=== PATIENT | male | born 1940 | race Caucasian/White ===

== ENCOUNTER 2021-01-30 11:07 | Outpatient (REF) | payer MEDICARE, MEDICAID, SELFPAY ==
--- NOTE | ~2021-01-30 | XR_ITS ---
EXAMINATION: XR CHEST CLINICAL INFORMATION: Nicotine dependence COMPARISON: None TECHNIQUE: 2 views of the chest were obtained. FINDINGS: The lungs are hyperinflated but clear of acute process. The heart size and pulmonary vascularity is normal. There is moderate spondylosis in dorsal spine. No lytic process. XR/XR chest 2V IMPRESSION: Hyperinflated lungs without acute process.
== END 2021-01-30 11:08 | disposition home or self-care (01) ==
LOC: HO.HMGCLDS 11:07
PROVIDERS: PCP Internal Medicine; Visit Provider Internal Medicine
DX: R05 Cough (principal); F17.210 Nicotine dependence, cigarettes, uncomplicated
CPT/HCPCS: 71046

== ENCOUNTER → 2021-03-13 08:47 | Outpatient (BNVA) | payer MEDICARE, MEDICAID, SELFPAY | PROVIDERS: PCP Internal Medicine; Visit Provider Internal Medicine Pulmonary Disease | DX: J44.9 Chronic obstructive pulmonary disease, unspecified (principal); R91.8 Other nonspecific abnormal finding of lung field; R05 Cough | CPT/HCPCS: 99202 ==

== ENCOUNTER 2021-03-19 13:02 | Outpatient (REF) | payer MEDICARE, MEDICAID, SELFPAY ==
--- NOTE | ~2021-03-19 | CT_ITS ---
EXAMINATION: CT CHEST WITHOUT CONTRAST CLINICAL INFORMATION: Other nonspecific abnormal finding of lung field. Followup pulmonary nodules. COMPARISON: Previous chest x-ray January [address] most recent September 2018 TECHNIQUE: Multidetector volumetric CT imaging of the chest was done. Axial MIP volume rendering provided. Sagittal and coronal reformatted images were obtained. This CT examination was performed using dose optimization techniques as appropriate, variously including the following: *Automated exposure control *Adjustment of mA and/or kV according to patient size (this includes techniques or standardized protocols for targeted exams where dose is matched to indication/reason for exam; i.e. extremities or head) *Use of iterative reconstruction technique DLP: 208 mGy-cm FINDINGS: LUNGS: Evaluation of the lung bases is limited due to respiratory motion artifact. There are multiple small pulmonary nodules. Some appear clustered and peribronchial with tree-in-bud appearance and some appear to represent bronchial soft tissue opacification suggestive of airways disease. This is similar to previous exam. There is a 3 x 4 mm calcified left upper lobe nodule that is stable. No new suspicious pulmonary nodule is seen. There is increased soft tissue along the anterior wall of the trachea. This is mixed with air and likely represents patient's secretions. MEDIASTINUM: The mediastinum is normal. PLEURA: There is no pleural effusion. No pleural mass or thickening. AXILLA: No lymphadenopathy. UPPER ABDOMEN: Unremarkable. OSSEOUS STRUCTURES: There are degenerative changes of the spine. CT/CT chest wo con IMPRESSION: Limited exam due to artifact from respiratory motion. Stable pulmonary nodules, largest a calcified 2 x 4 mm left upper lobe nodule. Some nodules appear to be related to airways disease and endobronchial secretions.
== END 2021-03-19 13:03 | disposition home or self-care (01) ==
LOC: HO.CT 13:02
PROVIDERS: PCP Internal Medicine; Visit Provider Internal Medicine Pulmonary Disease
DX: R91.8 Other nonspecific abnormal finding of lung field (principal)
CPT/HCPCS: 71250

== ENCOUNTER 2021-03-22 08:30 | Outpatient (REF) | payer MEDICARE, MEDICAID, SELFPAY ==
--- NOTE | 2021-03-22 17:14 | PFT_ITS ---
INDICATION: COPD. PROCEDURE NOTE: The patient unable to perform maneuvers despite several attempts and different coaching methods, therefore the patient was unable to perform the test. No data to review. IMPRESSION: This is a nondiagnostic study. ALLERGIES: PHYSICAL EXAMINATION: MD JAMES Eden/GUIDO / [id number]
--- NOTE | 2021-03-22 17:14 | PFT_ITS ---
INDICATION: Lung cancer. SPIROMETRY: The FEV1 to FVC 85% with an FEV1 of 2.63 L, which is predicted and an FVC of 3.1 L, which is 91% predicted. No significant response to bronchodilators noted. Maximum voluntary ventilation 101% predicted. LUNG VOLUMES: Total lung capacity 79% predicted with a residual volume of predicted and an expiratory reserve volume of 40% predicted. DIFFUSION CAPACITY: DLCO 81% predicted. COMPARISONS: None. INTERPRETATION: No obstructive ventilatory defect. No significant response to bronchodilators noted. Normal maximum voluntary ventilation. However, the patient does have a mild restrictive ventilatory defect of unclear etiology, it could be secondary to underlying interstitial lung disease. Diffusion capacity is within normal limits. Clinical correlation warranted. ALLERGIES: PHYSICAL EXAMINATION: Joseph Contreras MD MR/MODL / [id number]
== END 2021-03-22 08:31 | disposition home or self-care (01) ==
LOC: HO.RESP 08:30
PROVIDERS: PCP Internal Medicine; Visit Provider Internal Medicine Pulmonary Disease
DX: Z13.89 Encounter for screening for other disorder (principal)

== ENCOUNTER → 2021-04-02 08:53 | Outpatient (BNVA) | payer MEDICARE, MEDICAID, SELFPAY | PROVIDERS: PCP Internal Medicine; Visit Provider Internal Medicine Pulmonary Disease | DX: J44.9 Chronic obstructive pulmonary disease, unspecified (principal); R91.8 Other nonspecific abnormal finding of lung field; R05 Cough | CPT/HCPCS: 99212 ==

== ENCOUNTER 2021-04-10 10:27 | Outpatient (REF) | payer MEDICARE, MEDICAID, SELFPAY ==
[2021-04-10 11:25] LABS: Basophils Absolute Auto 0.1 X10*3/uL (0.0-0.2); Basophils Percent Auto 0.8 % (0-2); Eosinophils Absolute Auto 1.6 X10*3/uL (0.0-0.4); Eosinophils Percent Auto 23.7 % (0-4); Hematocrit 36.7 % (42-52); Hemoglobin 12.5 g/dl (14.0-18.0); Imm Gran Abs Auto 0.01 X10*3/uL (0.00-0.03); Imm Gran Pct Auto 0.2 % (0.0-0.4); Lymphocytes Absolute Auto 1.9 X10*3/uL (1.2-4.9); Lymphocytes Percent Auto 28.9 % (20-40); Mean Corpuscular HGB Conc 34.1 g/dl (31.0-36.0); Mean Corpuscular Hemoglobin 31.4 pg (27.0-33.0); Mean Corpuscular Volume 92.2 fL (80-98); Mean Platelet Volume 11.3 fL (9.4-12.4); Monocytes Absolute Auto 0.4 X10*3/uL (0.1-1.2); Monocytes Percent Auto 6.4 % (2-11); Neutrophils Absolute Auto 2.6 X10*3/uL (2.0-8.3); Platelet Count 190 X10*3/uL (160-400); Red Blood Count 3.98 X10*6/uL (4.60-5.80); Red Cell Distribution Width 13.4 % (11.0-16.0); White Blood Count 6.6 X10*3/uL (4.8-10.8)
[2021-04-10 11:36] LABS: MANUAL DIFF FLAG SCAN
[2021-04-10 11:44] LABS: Alanine Aminotransferase 27 U/L (0-40); Albumin Level 4.3 g/dL (3.5-5.0); Alkaline Phosphatase 66 U/L (39-117); Anion Gap 10 (12-20); Aspartate Amino Transferase 37 U/L (5-37); Bilirubin Total 0.6 mg/dL (0.0-1.0); Blood Urea Nitrogen 19 mg/dL (9-16); Calcium 9.5 mg/dL (8.4-10.2); Carbon Dioxide 25 mmol/L (22-29); Chloride 105 mmol/L (96-108); Cholesterol 153 mg/dL; Estimated Glomerular Filt Rate > 60; Glucose Fasting 80 mg/dL (60-99); HDL Cholesterol 43 mg/dL; Iron 64 mcg/dL (45-160); LDL Cholesterol Calculated 95 mg/dl; Percent Iron Saturation 17 % (15-50); Potassium 4.3 mmol/L (3.3-5.1); Sodium 136 mmol/L (135-145); Total Iron Binding Capacity 386 mcg/dL (228-428); Total Protein 7.9 g/dL (6.5-8.0); Triglycerides 76 mg/dL; Unsaturated Iron Binding 322 ug/dL
[2021-04-10 12:04] LABS: Ferritin 57 ng/mL (20-250); SLIDE REVIEW VERIFIED; Vitamin D 25-OH Total 20.9 ng/mL (>30)
[2021-04-10 12:20] LABS: Folate 10.5 ng/mL (> or = 4.0); Vitamin B12 368 pg/mL (200-900)
== END 2021-04-10 10:28 | disposition home or self-care (01) ==
LOC: HO.HMGCLDS 10:27
PROVIDERS: PCP Internal Medicine; Visit Provider Internal Medicine
DX: D64.9 Anemia, unspecified (principal); I10 Essential (primary) hypertension; Z87.19 Personal history of other diseases of the digestive system; Z87.898 Personal history of other specified conditions
CPT/HCPCS: 36415; 80053; 80061; 82306; 82607; 82728; 82746; 83540; 85025

== ENCOUNTER 2021-07-10 10:39 | Outpatient (REF) | payer MEDICARE, MEDICAID, SELFPAY ==
[2021-07-10 14:51] LABS: Vitamin D 25-OH Total 79.5 ng/mL (>30)
== END 2021-07-10 10:40 | disposition home or self-care (01) ==
LOC: HO.HMGCLDS 10:39
PROVIDERS: PCP Internal Medicine; Visit Provider Internal Medicine
DX: E55.9 Vitamin D deficiency, unspecified (principal)
CPT/HCPCS: 36415; 82306

== ENCOUNTER → 2021-08-01 09:55 | Outpatient (BNVA) | payer MEDICARE, MEDICAID, SELFPAY | PROVIDERS: PCP Internal Medicine; Visit Provider Urology | DX: N52.9 Male erectile dysfunction, unspecified (principal); N31.9 Neuromuscular dysfunction of bladder, unspecified; N40.1 Benign prostatic hyperplasia with lower urinary tract symptoms; N13.8 Other obstructive and reflux uropathy; R33.8 Other retention of urine; I10 Essential (primary) hypertension; E55.9 Vitamin D deficiency, unspecified; F17.210 Nicotine dependence, cigarettes, uncomplicated; Z28.21 Immunization not carried out because of patient refusal | CPT/HCPCS: Q3014 ==

== ENCOUNTER 2022-01-07 09:39 | Outpatient (REF) | payer MEDICARE, MEDICAID, SELFPAY ==
[2022-01-07 11:53] LABS: Basophils Absolute Auto 0.1 X10*3/uL (0.0-0.2); Eosinophils Absolute Auto 1.8 X10*3/uL (0.0-0.4); Eosinophils Percent Auto 26.9 % (0-4); Hematocrit 37.6 % (42.0-52.0); Hemoglobin 12.6 g/dl (14.0-18.0); Imm Gran Abs Auto 0.01 X10*3/uL (0.00-0.03); Imm Gran Pct Auto 0.1 % (0.0-0.4); Lymphocytes Absolute Auto 1.7 X10*3/uL (1.2-4.9); Lymphocytes Percent Auto 25.2 % (20-40); MANUAL DIFF FLAG SCAN; Mean Corpuscular HGB Conc 33.5 g/dl (31.0-36.0); Mean Corpuscular Volume 92.6 fL (80.0-98.0); Mean Platelet Volume 11.5 fL (9.4-12.4); Monocytes Absolute Auto 0.5 X10*3/uL (0.1-1.2); Monocytes Percent Auto 6.6 % (2-11); Neutrophils Absolute Auto 2.7 x10*3/uL (2.0-8.3); Neutrophils Percent Auto 40.2 % (45-73); Platelet Count 188 X10*3/uL (160-400); Red Blood Count 4.06 X10*6/uL (4.60-5.80); Red Cell Distribution Width 13.7 % (11.0-16.0); SCAN SMEAR FLAG 1; White Blood Count 6.8 X10*3/uL (4.8-10.8)
[2022-01-07 12:24] LABS: Vitamin D 25-OH Total 40.6 ng/mL (>30)
[2022-01-07 12:26] LABS: Alanine Aminotransferase 37 U/L (0-40); Anion Gap 12 (12-20); Aspartate Amino Transferase 48 U/L (5-37); Blood Urea Nitrogen 23 mg/dL (9-16); Calcium 9.7 mg/dL (8.4-10.2); Carbon Dioxide 26 mmol/L (22-29); Chloride 103 mmol/L (96-108); Cholesterol 157 mg/dL; Estimated Glomerular Filt Rate > 60; Glucose Fasting 93 mg/dL (60-99); HDL Cholesterol 38 mg/dL; Iron 72 mcg/dL (45-160); LDL Cholesterol Calculated 95 mg/dl; Percent Iron Saturation 19 % (15-50); Potassium 4.3 mmol/L (3.3-5.1); Sodium 137 mmol/L (135-145); Total Iron Binding Capacity 379 mcg/dL (228-428); Triglycerides 122 mg/dL; Unsaturated Iron Binding 307 ug/dL
[2022-01-07 13:34] LABS: SLIDE REVIEW VERIFIED
== END 2022-01-07 09:40 | disposition home or self-care (01) ==
LOC: HO.HMGCLDS 09:39
PROVIDERS: Visit Provider Internal Medicine
DX: D64.9 Anemia, unspecified (principal); E55.9 Vitamin D deficiency, unspecified; I10 Essential (primary) hypertension; Z87.19 Personal history of other diseases of the digestive system
CPT/HCPCS: 36415; 80048; 80061; 82306; 83540; 84450; 84460; 85025

== ENCOUNTER 2022-03-26 12:45 | Outpatient (REF) | payer MEDICARE, MEDICAID, SELFPAY ==
--- NOTE | ~2022-03-26 | CT_ITS ---
EXAMINATION: CT CHEST WITHOUT CONTRAST CLINICAL INFORMATION: Pulmonary nodules. COMPARISON: CT chest 03/19/2021 TECHNIQUE: Multidetector volumetric CT imaging of the chest was done. Axial MIP volume rendering provided. Sagittal and coronal reformatted images were obtained. This CT examination was performed using dose optimization techniques as appropriate, variously including the following: *Automated exposure control *Adjustment of mA and/or kV according to patient size (this includes techniques or standardized protocols for targeted exams where dose is matched to indication/reason for exam; i.e. 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 The lungs are well-expanded. LUNGS: The lungs are hyperinflated. There is a 2 mm left apex nodule axial image 83/9 which appears to be intrabronchiolar. 4 mm calcified nodule left upper lobe axial image 126/9, nodular tree-in-bud appearance left upper lobe axial image 179/9, right upper lobe axial image 188/9, intrabronchial or tumor nodule left upper lobe axial image 193/9, 3 mm focal thickening right major fissure axial image 243/9, intrabronchial or tree-in-bud appearance right upper lobe anteriorly image 271-278/9. No additional lung nodules are visualized. There is no acute consolidation. There is minimal plate-like atelectasis of the right lower lobe. MEDIASTINUM: The thyroid lobes are symmetrical and normal. The heart size and the great vessels are of normal caliber. The trachea is dilated but widely patent. No abnormally sized mediastinal or hilar lymph nodes are seen. Trace coronary artery calcifications are seen. PLEURA: There is no pleural effusion. No pleural mass or thickening. AXILLA: No lymphadenopathy. UPPER ABDOMEN: Visualized liver, spleen, pancreas and adrenal glands are unremarkable. OSSEOUS STRUCTURES: No lytic or sclerotic process is seen. CT/CT chest wo con IMPRESSION: Stable tree-in-bud appearing pulmonary nodules and intrabronchial debris, noncalcified and calcified pulmonary nodules including 4 mm calcified nodule left upper lobe. No acute pneumonic consolidation. Stable exam. There is no abnormal mediastinal or axillary lymphadenopathy. Evidence of emphysema and hyperinflation. Fleischner guidelines were followed.
== END 2022-03-26 12:46 | disposition home or self-care (01) ==
LOC: HO.CT 12:45
PROVIDERS: Visit Provider Internal Medicine Pulmonary Disease
DX: R91.8 Other nonspecific abnormal finding of lung field (principal)
CPT/HCPCS: 71250

== ENCOUNTER 2022-07-02 07:30 | Outpatient (REF) | payer MEDICARE, MEDICAID, SELFPAY ==
[2022-07-02 11:27] LABS: MANUAL DIFF FLAG NO
[2022-07-02 11:37] LABS: Basophils Absolute Auto 0.1 X10*3/uL (0.0-0.2); Basophils Percent Auto 0.6 % (0-2); Eosinophils Absolute Auto 1.9 X10*3/uL (0.0-0.4); Eosinophils Percent Auto 19.5 % (0-4); Hematocrit 36.5 % (42.0-52.0); Hemoglobin 12.4 g/dl (14.0-18.0); Imm Gran Abs Auto 0.03 X10*3/uL (0.00-0.03); Imm Gran Pct Auto 0.3 % (0.0-0.4); Lymphocytes Absolute Auto 2.1 X10*3/uL (1.2-4.9); Lymphocytes Percent Auto 21.6 % (20-40); Mean Corpuscular Hemoglobin 31.4 pg (27.0-33.0); Mean Corpuscular Volume 92.4 fL (80.0-98.0); Mean Platelet Volume 11.5 fL (9.4-12.4); Monocytes Absolute Auto 0.6 X10*3/uL (0.1-1.2); Monocytes Percent Auto 6.2 % (2-11); Neutrophils Percent Auto 51.8 % (45-73); Platelet Count 170 X10*3/uL (160-400); Red Blood Count 3.95 X10*6/uL (4.60-5.80); Red Cell Distribution Width 13.2 % (11.0-16.0); White Blood Count 9.7 X10*3/uL (4.8-10.8)
[2022-07-02 12:07] LABS: Alanine Aminotransferase 29 U/L (0-40); Albumin Level 4.1 g/dL (3.5-5.0); Alkaline Phosphatase 60 U/L (39-117); Anion Gap 14 (12-20); Aspartate Amino Transferase 34 U/L (5-37); Bilirubin Total 0.6 mg/dL (0.0-1.0); Blood Urea Nitrogen 23 mg/dL (9-16); Calcium 9.3 mg/dL (8.4-10.2); Carbon Dioxide 24 mmol/L (22-29); Chloride 104 mmol/L (96-108); Cholesterol 152 mg/dL; Estimated Glomerular Filt Rate > 60; Glucose Fasting 92 mg/dL (60-99); HDL Cholesterol 42 mg/dL; LDL Cholesterol Calculated 94 mg/dl; Sodium 138 mmol/L (135-145); Total Protein 7.8 g/dL (6.5-8.0); Triglycerides 83 mg/dL
[2022-07-02 12:09] LABS: TSH reflex Free T4 2.15 uIU/mL (0.32-4.0); Vitamin D 25-OH Total 39.2 ng/mL (>30)
== END 2022-07-02 07:31 | disposition home or self-care (01) ==
LOC: HO.HMGCLDS 07:30
PROVIDERS: PCP Internal Medicine; Visit Provider Internal Medicine
DX: I10 Essential (primary) hypertension (principal); D64.9 Anemia, unspecified; J44.9 Chronic obstructive pulmonary disease, unspecified; R53.83 Other fatigue; E55.9 Vitamin D deficiency, unspecified; Z87.19 Personal history of other diseases of the digestive system
CPT/HCPCS: 36415; 80053; 80061; 82306; 84443; 85025

== ENCOUNTER → 2022-08-05 11:10 | Outpatient (BNVA) | payer MEDICARE, MEDICAID, SELFPAY | PROVIDERS: PCP Internal Medicine; Visit Provider Urology | DX: N40.1 Benign prostatic hyperplasia with lower urinary tract symptoms (principal); R33.8 Other retention of urine; N52.9 Male erectile dysfunction, unspecified | CPT/HCPCS: 51798; 99212 ==

== ENCOUNTER 2022-12-26 07:33 | Outpatient (REF) | payer MEDICARE, MEDICAID, SELFPAY ==
[2022-12-26 12:00] LABS: Basophils Absolute Auto 0.1 X10*3/uL (0.0-0.2); Basophils Percent Auto 0.6 % (0-2); Eosinophils Percent Auto 26.3 % (0-4); Hematocrit 32.5 % (42.0-52.0); Imm Gran Abs Auto 0.01 X10*3/uL (0.00-0.03); Imm Gran Pct Auto 0.1 % (0.0-0.4); Lymphocytes Absolute Auto 2.3 X10*3/uL (1.2-4.9); Lymphocytes Percent Auto 30.2 % (20-40); MANUAL DIFF FLAG SCAN; Mean Corpuscular HGB Conc 33.8 g/dl (31.0-36.0); Mean Corpuscular Hemoglobin 31.5 pg (27.0-33.0); Mean Corpuscular Volume 93.1 fL (80.0-98.0); Mean Platelet Volume 11.3 fL (9.4-12.4); Monocytes Absolute Auto 0.5 X10*3/uL (0.1-1.2); Monocytes Percent Auto 6.6 % (2-11); Neutrophils Absolute Auto 2.8 x10*3/uL (2.0-8.3); Neutrophils Percent Auto 36.2 % (45-73); Platelet Count 166 X10*3/uL (160-400); Red Blood Count 3.49 X10*6/uL (4.60-5.80); Red Cell Distribution Width 14.1 % (11.0-16.0); SCAN SMEAR FLAG 1; White Blood Count 7.8 X10*3/uL (4.8-10.8)
[2022-12-26 12:23] LABS: SLIDE REVIEW VERIFIED
[2022-12-26 12:36] LABS: Alanine Aminotransferase 25 U/L (0-40); Anion Gap 13 (12-20); Aspartate Amino Transferase 33 U/L (5-37); Blood Urea Nitrogen 35 mg/dL (9-16); Calcium 8.7 mg/dL (8.4-10.2); Carbon Dioxide 23 mmol/L (22-29); Chloride 107 mmol/L (96-108); Cholesterol 144 mg/dL; Estimated Glomerular Filt Rate 57; Glucose Fasting 92 mg/dL (60-99); HDL Cholesterol 37 mg/dL; Iron 79 mcg/dL (45-160); LDL Cholesterol Calculated 88 mg/dl; Percent Iron Saturation 25 % (15-50); Potassium 4.1 mmol/L (3.3-5.1); Sodium 139 mmol/L (135-145); Total Iron Binding Capacity 319 mcg/dL (228-428); Triglycerides 97 mg/dL; Unsaturated Iron Binding 240 ug/dL
[2022-12-26 12:51] LABS: Folate 10.1 ng/mL (> or = 4.0); Vitamin B12 1043 pg/mL (200-900); Vitamin D 25-OH Total 45.9 ng/mL (>30)
== END 2022-12-26 07:34 | disposition home or self-care (01) ==
LOC: HO.HMGCLDS 07:33
PROVIDERS: PCP Internal Medicine; Visit Provider Internal Medicine
DX: E55.9 Vitamin D deficiency, unspecified (principal); D64.9 Anemia, unspecified; I10 Essential (primary) hypertension; G47.00 Insomnia, unspecified; J44.9 Chronic obstructive pulmonary disease, unspecified; F17.210 Nicotine dependence, cigarettes, uncomplicated; Z87.19 Personal history of other diseases of the digestive system
CPT/HCPCS: 36415; 80048; 80061; 82306; 82607; 82746; 83540; 84450; 84460; 85025

== ENCOUNTER 2022-12-30 15:41 | Outpatient (AMB) | payer MEDICARE, MEDICAID, SELFPAY ==
--- NOTE | 2022-12-30 15:46 | A.OFFPC_ITS ---
<Statement entered by Argentina Pierre MD - 01/18/25 15:14> This note has been administratively?closed. Vital Signs 12/30/22 15:48 Height 5 ft 3 in Weight 102 lb 7 oz BMI 18.1 BP 118/70 Blood Pressure Location Lt brachial Position Sitting Pulse 63 Pulse Source Pulse Oximeter Pulse Oximetry (%) 99 Oxygen Delivery Method Room Air Intake Visit Reasons: 6 months f/u Intake Note: Pt is here today for his 6 month f/u Allergies No Known Allergies Allergy (Verified 12/30/22 16:09) Medication List - Last Reconciled 12/30/22 by Argentina Pierre MD acetaminophen ER (Tylenol 8 Hour) 650 mg PO Q12H cod liver oil 5 mL PO DAILY finasteride 5 mg PO DAILY 90 days glycopyrrolate-formoterol 9-4.8 mcg (Bevespi Aerosphere) 2 puffs inhalation BID 30 days ipratropium-albuterol 20-100 mcg/actuation (Combivent Respimat) 1 puff inhalation Q6H lisinopril 5 mg PO DAILY tadalafil 20 mg PO ONCE PRN 30 days tamsulosin 0.4 mg PO BEDTIME 90 days Tobacco use date assessed: 12/30/22 Fall risk assessment: No Falls in past year Last assessed Fall Risk: 12/30/22 HPI 6 months f/u HPI Details 82-year-old male history of normocytic normochromic anemia, benign prostatic hyperplasia, COPD here today for follow-up. He states that he has been feeling well, with no complaints at present time. Continues to smoke cigarettes at least 10 cigarettes a day , with no desire to quit at present. He also declines getting any vaccines, including the COVID vaccine. He has a follow-up appointment scheduled with Dr. Ulloa for his benign prostatic hyperplasia. [facility] Medical History Benign prostatic hyperplasia with urinary retention COVID-19 vaccination refused Duodenitis Erosive gastritis with hemorrhage Essential hypertension Hearing impairment Hiatal hernia Hx of gastritis Hx of syncope Insomnia disorder, with non-sleep disorder mental comorbidity Intermittent lightheadedness Normocytic normochromic anemia Productive cough Refused influenza vaccine Refused pneumococcal vaccination Smokes with greater than 40 pack year history Vaccine refused by patient Vitamin D deficiency Surgical History No pertinent past surgical history Family History Father Parkinson's disease Social History Housing: Apartment Alcohol intake: former Patient Tobacco Use Status: Current everyday Tobacco user Tobacco use type: Cigarette Cigarette Packs Per Day: 0 Cigarettes Per Day: 10 e-Cigarette/Vaping Use: Never Used service: No Current occupational status: retired Cognitive needs: No Hearing needs: Yes Vision needs: Yes Questionnaire Thrive Questionnaire Declines Thrive assessment: No Date Thrive assessed: 12/30/22 I am a: Patient What is your living situation today?: I have a steady place to live Within the past 12 months, did the food you bought not last and you didn't have the money to get more?: Sometimes True Within the past 12 months, did you worry whether your food would run out before you got money to buy more?: Sometimes True Do you have trouble paying for medicines?: No Do you have trouble getting transportation to medical appointments?: No Do you have trouble paying your heating and electricity bill?: No Do you have trouble taking care of your child, family member or friend?: No Do you have trouble with day-to-day activities such as bathing, preparing meals, shopping, managing finances, etc.?: No Are you currently unemployed and looking for a job?: No Are you interested in more education?: No AUDIT C Alcohol Use Questionnaire (AUDIT-C) 1. How often do you have a drink containing alcohol?: Never Total Score: 0 Review of Systems Const Denies fever(s), Denies weakness and Denies weight loss ENT Reports hearing loss, Denies nasal congestion, Denies post nasal drip, Denies sinus pain and Denies sinus pressure Card Denies chest pain, Denies pedal edema and Denies orthopnea Resp Denies hemoptysis, Denies excessive phlegm production and Reports wheezing (Occasional, needs a refill on his inhalers) GI Details: no melena or hematochezia Denies abdominal pain, Denies melena, Denies bloating, Denies hematochezia, Denies dyspepsia and Denies heartburn Details: no hematuria Musc Denies myalgias, Denies arthralgias and Denies joint swelling Neuro Denies weakness Arturo/Lymph Denies easy bruising Aller/Immun Denies seasonal rhinorrhea and Reports wheezing (Occasional, needs a refill on his inhalers) Physical exam (Primary Care) Vital Signs: Last Vital Signs Pulse 63 12/30/22 15:48 BP 118/70 12/30/22 15:48 Pulse Ox 99 12/30/22 15:48 Oxygen Delivery Method Room Air 12/30/22 15:48 BMI result Body Mass Index 18.1 Tobacco/Smoking Status: Tobacco use Status Tobacco use date assessed 12/30/22 12/30/22 15:52 Patient Tobacco Use Status Current everyday Tobacco 12/30/22 15:52 Tobacco use type Cigarette 12/30/22 15:52 e-Cigarette/Vaping Use Never Used 12/30/22 15:52 Are you ready to quit: No Tobacco cessation counseling provided: Yes Items discussed: Nicotine replacement and Other Thrive Assessment: Date of Thrive Assessment Date Thrive assessed 06/30/22 12/30/22 15:52 Const General: cooperative, comfortable and no acute distress Orientation/consciousness: patient oriented x3 (Walks unassisted) Limitations: no limitations HENMT Ears: external ears normal and EAC's normal General nose exam: Normal external nose present Mouth: oropharynx normal and moist mucous membranes Eyes General: appearance normal, both eyes and all related structures Conjunctivae: conjunctivae normal Pupils: Equal, round and reactive pupils present EOM: EOMs intact bilaterally Neck Neck: Yes full ROM, Yes no lymphadenopathy and Yes supple Resp Effort & Inspection: normal respiratory effort and able to speak in complete sentences Auscultation: clear to auscultation bilaterally Cardio Rate: regular rate Rhythm: regular rhythm Heart sounds: S1 normal heart sound present and S2 normal heart sound present GI Inspection: Yes normal to inspection Palpation (GI): Soft to palpation, nontender and no masses Auscultation: normal bowel sounds Skin General skin exam: no rashes or lesions noted Neuro General: patient oriented x3 (Walks unassisted), gait normal, tone normal, moves all extremities, Normal light touch and pain sensation and no focal motor deficits Cranial nerves: Yes Equal, round and reactive pupils present Cognition (Neuro): normal cognition Gait exam (Neuro): Normal gait present Motor exam (neuro): 5/5 motor strength present throughout Extrem General: Yes full ROM, Yes no joint enlargement, Yes no pedal edema and Yes normal gait Results Reviewed Results Reviewed: NTERED: 12/26/[address]: ORDERED: CBC Auto Diff, SLIDE REVIEW Test Result Flag Reference Site WBC 7.8 4.8-10.8 X10*3/uL RBC 3.49 L 4.60-5.80 X10*6/uL HGB 11.0 L 14.0-18.0 g/dl HCT 32.5 L 42.0-52.0 % MCV 93.1 80.0-98.0 fL MCH 31.5 27.0-33.0 pg MCHC 33.8 31.0-36.0 g/dl RDW 14.1 11.0-16.0 % PLT 166 160-400 X10*3/uL MPV 11.3 9.4-12.4 fL Neut Pct Auto 36.2 L 45-73 % ImGran Pct Auto 0.1 0.0-0.4 % Lymp Pct Auto 30.2 20-40 % Bre[place]itt Pct Auto 6.6 2-11 % Eos Pct Auto 26.3 H 0-4 % Baso Pct Auto 0.6 0-2 % NRBC Pct Auto 0.0 0.0-0.2 /100WBC ANC Neut Abs # 2.8 2.0-8.3 x10*3/uL ImGran Abs Auto 0.01 0.00-0.03 X10*3/uL Lymph Abs Auto 2.3 1.2-4.9 X10*3/uL [place] Abs Auto 0.5 0.1-1.2 X10*3/uL Eos Abs Auto 2.0 H 0.0-0.4 X10*3/uL Baso Abs Auto 0.1 0.0-0.2 X10*3/uL NRBC Abs Auto 0.000 0.0-0.012 X10*3/uL SLIDE REVIEW VERIFIED NTERED: 12/26/[address]: ORDERED: Met Prof Fast, IRON PROF, AST, ALT, Lipid Panel, B12FOL, Vitamin D 25- OH Test Result Flag Reference Site Sodium 139 135-145 mmol/L Potassium 4.1 3.3-5.1 mmol/L CL 107 96-108 mmol/L CO2 23 22-29 mmol/L Gap 13 12-20 BUN 35 H 9-16 mg/dL Creat 1.22 0.5-1.4 mg/dL EGFR 57 NOTE: For -Bul[place] individuals, multiply the result by 1.210. Chronic Kidney Disease: Estimated GFR < 60 mL/min/1.73m2 Severe Kidney Disease: Estimated GFR < 15 mL /min/1.73m2 FBS 92 60-99 mg/dL CA 8.7 # 8.4-10.2 mg/dL Iron 79 45-160 mcg/dL TIBC 319 228-428 mcg/dL Saturation 25 15-50 % UIBC 240 ug/dL AST (GOT) 33 5-37 U/L ALT (GPT) 25 0-40 U/L Triglyceride 97 mg/dL Desirable Triglyceride: less than 150 mg/dL Borderline High Triglyceride 150-199 mg/dL High Triglyceride: 200-499 mg/dL Very High Triglyceride: greater than or equal to 5OO mg/dL Chol 144 mg/dL Desirable Cholesterol: less than 200 mg/dL Borderline High Cholesterol: 200-239 mg/dL High Cholesterol: greater than 239 mg/dL LDL Calculated 88 mg/dl Desirable LDL: less than 100 mg/dL Near Optimal/Above Optimal LDL: 110-129 mg/dL Borderline High LDL: 130-159 mg/dL High LDL: 160-189 mg/dL Very High LDL: greater than or equal to 190 mg/dL HDL 37 mg/dL Desirable HDL: greater than 40 mg/dL Note: This HDL assay may give artificially low results in patients with liver disease. Vitamin B12 1043 H 200-900 pg/mL NORMAL 200-900 PG/ML INDETERMINATE 160-199 PG/ML DEFICIENT < 160 PG/ML Folate 10.1 > or = 4.0 ng/mL Reference Values: > or = 4.0 ng/mL < 4.0 ng/mL suggests folate deficiency Methotrexate, aminopterin and folinic acid (leucovorin) are chemotherapeutic agents whose molecular structures are similar to folate; therefore, the Visually Impaired Teacher folate assay cannot be used for patients using these drugs. Vit D 25-OH Tot 45.9 >30 ng/mL Health Based Reference Values* < 20 ng/mL Deficient 20-30 ng/mL Insufficient > 30 ng/mL Sufficient Assessment and Plan Assessment & Plan (1) Essential hypertension: Code(s): I10 - Essential (primary) hypertension Plan: Blood pressure at goal of less than 130/80. Continue with current medication. Reinforced importance of following a low sodium diet, getting regular exercise, and lowering stress levels. (2) COPD (chronic obstructive pulmonary disease): Code(s): J44.9 - Chronic obstructive pulmonary disease, unspecified Plan: Continued on Bevespi aerosphere. Unfortunately, patient does not want to quit smoking or get his pneumonia COVID and flu vaccine (3) Refused pneumococcal vaccination: Code(s): Z28. - Immunization not carried out because of patient refusal Plan: Patient states that he has been feeling well, with no complaints of cough, chest congestion or wheezing. Take (4) COVID-19 vaccination refused: Code(s): Z. - Immunization not carried out because of patient refusal Medications: Changed From ipratropium-albuterol 20-100 mcg/actuation (Combivent Respimat) 1 puff inhalation Q6H 4 grams 5RF F17.210 - Nicotine dependence, cigarettes, uncomplicated, R05 - Cough To Combivent Respimat 20-100 mcg/actuation (ipratropium-albuterol) 1 puff in halation Q6H 4 grams 6RF NS F17.210 - Nicotine dependence, cigarettes, uncomplicated, R05 - Cough Refilled lisinopril 5 mg PO DAILY 90 tabs 3RF I10 - Essential (primary) hypertension Coding Level of Care Code Est Pt Level 4 (17436) Diagnoses Essential hypertension I10 COPD (chronic obstructive pulmonary disease) J44.9 Refused pneumococcal vaccination COVID-19 vaccination refused
[2022-12-30 15:48] VITALS: BP 118/70; PULSE 63; O2SAT 99; BMI 18.1
== END 2022-12-30 16:29 | disposition home or self-care (01) ==
LOC: HO.HMGC 15:41
PROVIDERS: PCP Internal Medicine; Visit Provider Internal Medicine
DX: I10 Essential (primary) hypertension (principal); J44.9 Chronic obstructive pulmonary disease, unspecified; Z28.21 Immunization not carried out because of patient refusal
CPT/HCPCS: 99499

== ENCOUNTER 2023-01-15 09:34 | Emergency (ER) | payer MEDICARE, MEDICAID, SELFPAY ==
--- NOTE | ~2023-01-15 | XR_ITS ---
EXAMINATION: XR LUMBOSACRAL SPINE CLINICAL INFORMATION: Lifting injury. COMPARISON: Lumbar spine radiographs dated 08/06/2018. TECHNIQUE: Three views of the lumbosacral spine. FINDINGS: Moderate to severe degenerative disc disease is seen from L3-L4 and L5-S1. Degenerative changes are seen most pronounced at L4-L5 where there is mild grade 1 anterolisthesis. The vertebral bodies are intact. There is no acute fracture. Mild to moderate multilevel marginal osteophyte formation is seen. The soft tissues are unremarkable. XR/XR lumbar spine 2-3V IMPRESSION: Multilevel degenerative changes of mildly increased compared to the 2018 study. No significant acute abnormality.
--- NOTE | ~2023-01-15 | XR_ITS ---
EXAMINATION: XR HIP, RIGHT CLINICAL INFORMATION: Right hip pain status post lifting injury. COMPARISON: None available. TECHNIQUE: Two views of the right hip. FINDINGS: Mild bilateral hip degenerative joint changes are seen, right greater than left. There is no acute fracture or dislocation. The bony pelvis is intact with the soft tissues are unremarkable. XR/XR hip RT w PEL1V IMPRESSION: Mild bilateral hip osteoarthritis, right greater than left. No acute fracture.
[2023-01-15 09:49] VITALS: BP 134/78; BP 200/96; PULSE 75; RESP 18; TEMP 36.6; O2SAT 100; O2SAT 99; BMI 16.5
--- NOTE | 2023-01-15 10:21 | ED_ITS ---
HPI - Back Pain/Injury General Chief Complaint: Back Pain/Injury Stated Complaint: R SIDE PAIN S/P LIFTING HEAVY OBJ T-1 Time Seen by Provider: 01/15/23 10:00 Source: patient and EMS Mode of arrival: EMS Limitations: no limitations History of Present Illness HPI Narrative: this is an 82-year-old male with history of COPD, BPH, hypertension, tobacco smoker who presents to the ER with right-sided back pain with radiation down the right leg which happened yesterday when he lifted a barbecue at home. Patient reports radiation of pain down the leg with no associated numbness or tingling. No numbness in the groin. No Dorsey bladder incontinence. No fevers or chills. Patient is ambulatory. Patient reports taking Motrin with continued symptoms Related Data Home Medications Medication Instructions Recorded Confirmed acetaminophen 650 mg 650 mg PO Q12H 07/10/21 08/05/22 tablet,extended release (Tylenol 8 Hour) cod liver oil 5 ml PO DAILY 07/10/21 08/05/22 Previous Rx's Medication Instructions Recorded glycopyrrolate 9 mcg-formoterol 2 puff inhalation BID 30 days #1 ea 04/03/21 4.8 mcg HFA aerosol inhaler (Bevespi Aerosphere) finasteride 5 mg tablet 5 mg PO DAILY 90 days #90 tabs 09/03/22 tamsulosin 0.4 mg capsule 0.4 mg PO BEDTIME 90 days #90 caps 09/23/22 tadalafil 20 mg tablet 20 mg PO ONCE PRN sexual activity 11/24/22 30 days #30 tabs Combivent Respimat 20 mcg-100 1 puff inhalation Q6H #4 grams 12/30/22 mcg/actuation solution for inhalation (ipratropium-albuterol) lisinopril 5 mg tablet 5 mg PO DAILY #90 tabs 12/30/22 acetaminophen 325 mg tablet 650 mg PO QID PRN pain #30 tabs 01/15/23 (Tylenol) cyclobenzaprine 10 mg tablet 10 mg PO TID PRN muscle spasm #10 01/15/23 tabs lidocaine 5 % topical patch 1 patch topical DAILY #30 ea 01/15/23 (Lidoderm) Allergies Allergy/AdvReac Type Severity Reaction Status Date / Time No Known Allergies Allergy Verified 12/30/22 16:09 Review of Systems Review of Systems: Yes all other systems are reviewed and are negative Constitutional: Constitutional: Reports no additional constitutional complaints, Denies body ache(s), Denies chills, Denies fever(s), Denies headache(s) and Denies weakness Eyes: Eyes: Reports no additional eye complaints and Denies change in vision ENT: Reports system reviewed and no additional complaints, except as documented, Denies dizziness, Denies headache(s), Denies nasal congestion, Denies nasal discharge and Denies neck pain Cardiovascular: Cardiovascular: Reports no additional cardiovascular complaints, Denies chest pain, Denies leg edema and Denies dyspnea Respiratory: Respiratory: Reports no additional respiratory complaints, Denies cough and Denies dyspnea Gastrointestinal: Gastrointestinal: Reports no additional gastrointestinal complaints, Denies abdominal pain, Denies diarrhea, Denies nausea and Denies vomiting Genitourinary: Genitourinary: Denies urinary incontinence Musculoskeletal: Musculoskeletal: Reports no additional musculoskeletal complaints, Reports back pain, Denies arthralgias, Denies joint swelling, Denies neck pain, Denies numbness, Reports radiating pain into limb and Denies tingling Integumentary/Breasts: Skin/Breast: Reports system reviewed and no additional complaints, except as docu and Denies rash Neurologic: Reports system reviewed and no additional complaints, except as documented, Denies Abnormal speech present, Denies dizziness, Denies headache(s), Denies numbness, Denies tingling and Denies weakness PMFSH Past Medical History Attestation statement: The following information was validated with the patient. Source: old records reviewed and nursing notes reviewed Medical History Benign prostatic hyperplasia with urinary retention COVID-19 vaccination refused Duodenitis Erosive gastritis with hemorrhage Essential hypertension Hearing impairment Hiatal hernia Hx of gastritis Hx of syncope Insomnia disorder, with non-sleep disorder mental comorbidity Intermittent lightheadedness Normocytic normochromic anemia Productive cough Refused influenza vaccine Refused pneumococcal vaccination Smokes with greater than 40 pack year history Vaccine refused by patient Vitamin D deficiency Surgical History No pertinent past surgical history Family History Family History Father Parkinson's disease Social History Social History Housing: Apartment Alcohol intake: former Patient Tobacco Use Status: Current everyday Tobacco user Tobacco use type: Cigarette Cigarette Packs Per Day: 0 Cigarettes Per Day: 10 Smoked in Last 30 Days: Yes e-Cigarette/Vaping Use: Never Used Use of substances other than those prescribed or required for medical reasons: No Advance Directives: No Advance Directives Information Provided: Yes service: No Current occupational status: retired Cognitive needs: No Hearing needs: Yes Vision needs: Yes Physical Exam Vital Signs: Vital Signs: Last Vital Signs Temp 97.7 F 01/15/23 12:30 Pulse 61 01/15/23 12:30 Resp 16 01/15/23 12:30 BP 194/85 H 01/15/23 12:30 Pulse Ox 99 01/15/23 12:30 O2 Del Method Room Air 01/15/23 12:30 BMI result Body Mass Index 16.5 Const: General: cooperative, healthy appearing, comfortable and no acute distress Orientation/consciousness: patient oriented x3 Limitations: no limitations HEENT: Head: Yes normal to inspection Ears: hearing grossly normal bilaterally General nose exam: Normal external nose present Face and sinus: Yes normal facial exam Mouth: Normal oral and palatal mucosa present Throat: Yes posterior oropharynx normal Eyes: General: appearance normal, both eyes and all related structures Pupils: Equal, round and reactive pupils present Neck: Neck: Yes normal visual inspection Chest: Chest palpation & inspection: normal inspection of the chest Resp: Effort & Inspection: normal respiratory effort Auscultation: clear to auscultation bilaterally Cardio: Rate: regular rate Rhythm: regular rhythm Peripheral pulses: Peripheral pulses 2+ throughout GI: Inspection: Yes normal to inspection Palpation (GI): Soft to palpation and nontender Auscultation: normal bowel sounds : General: Yes no CVA tenderness Back/Spine/Pelvis: Other: patient has tenderness over the right lumbar soft tissue and mid spine, posterior right hip/pelvis with no step-offs or deformities. Pain is worsened with right straight leg raise. Back: no CVA tenderness Thoracic/Lumbar Spine: thoracic and lumbar spine normal to inspection Skin: General skin exam: no rashes or lesions noted Neuro: General: patient oriented x3, moves all extremities, no focal motor deficits, normal sensation to monofilament and Unable to assess gait Cranial nerves: Yes Equal, round and reactive pupils present, Yes Normal facial strength present and Yes Midline tongue present Cognition (Neuro): normal cognition Speech: No Abnormal speech present Gait exam (Neuro): Unable to assess gait Motor exam (neuro): 5/5 motor strength present throughout Sensory Exam: Normal double simultaneous stimulation for sensation Extrem: General: Yes normal to inspection, Yes no pedal edema and Yes no calf tenderness Course Course Course Narrative: x-rays are unremarkable with exception of some arthritic changes. Patient was able to ambulate around the emergency room with a steady gait. Likely lumbar radiculopathy. I will send the patient home with some analgesia and recommendations to follow-up with his primary care doctor outpatient. Reviewed worrisome signs and symptoms of when to return to the emergency room. Comfortable plan for discharge home. Medications Administered Discontinued Medications Generic Name Dose Route Start Last Admin Trade Name Freq PRN Reason Stop Dose Admin Acetaminophen 975 mg 01/15/23 10:19 01/15/23 11:09 Acetaminophen 325 Mg Tablet PO 01/15/23 10:20 975 mg ONCE ONE Administration Ketorolac Tromethamine 15 mg 01/15/23 10:20 01/15/23 11:09 Ketorolac Tromethamine 15 Mg/Ml Vial IM 01/15/23 10:21 15 mg ONCE ONE Administration Lidocaine 1 patch 01/15/23 10:19 01/15/23 11:09 Lidocaine 4 % Patch Adh..Patch TRANSDERMA 01/15/23 10:20 1 patch ONCE ONE Administration Protocol Medical Decision Making Medical Decision Making MDM Narrative: 82yo male Here with right sided back pain after lifting heavy object yesterday night. No neurological deficits or red flag symptoms. Will check x-rays, provide analgesia Differential Diagnosis Differential Diagnoses: The differential diagnosis associated with the presentation includes lumbar radiculopathy low concern for cord compression or cauda equina or epidural hematoma Independent Interpretation I performed an independent interpretation of an: Plain X-Ray Interpretation: I independently reviewed the x-rays and agree with the radiologist's report Radiology Impression Discussion of test interpretation with radiology: I have reviewed the radiologist's reading. Radiologist Impression: FINDINGS: Moderate to severe degenerative disc disease is seen from L3-L4 and L5-S1. Degenerative changes are seen most pronounced at L4-L5 where there is mild grade 1 anterolisthesis. The vertebral bodies are intact. There is no acute fracture. Mild to moderate multilevel marginal osteophyte formation is seen. The soft tissues are unremarkable. XR/XR lumbar spine 2-3V IMPRESSION: Multilevel degenerative changes of mildly increased compared to the 2018 study. No significant acute abnormality.[address] [address] XRay Report Signed Patient: Florentin Jeronimo MR#: [id number] : 1940 Acct:[id number] Age/Sex: 82 / M ADM Date: 01/15/23 Loc: HO.ED Attending Dr: Ordering Physician: Stella Machado NP Date of Service: 01/15/23 Procedure(s): XR hip RT w PEL1V Accession Number(s): [id number] cc: Stella Machado NP~ EXAMINATION: XR HIP, RIGHT CLINICAL INFORMATION: Right hip pain status post lifting injury. COMPARISON: None available. TECHNIQUE: Two views of the right hip. FINDINGS: Mild bilateral hip degenerative joint changes are seen, right greater than left. There is no acute fracture or dislocation. The bony pelvis is intact with the soft tissues are unremarkable.? XR/XR hip RT w PEL1V IMPRESSION: Mild bilateral hip osteoarthritis, right greater than left. No acute fracture. ? Discharge Plan Discharge Clinical Impression: Lumbar radiculopathy Patient Disposition: Home, Self-Care Instructions: Lumbar Radiculopathy (ED) Additional Instructions: Your x-ray show no broken bones. Apply heat or ice to your back gentle stretching follow-up with your primary care Prescriptions: New cyclobenzaprine 10 mg tablet 10 mg PO TID PRN (Reason: muscle spasm) Qty: 10 0RF acetaminophen [Tylenol] 325 mg tablet 650 mg PO QID PRN (Reason: pain) Qty: 30 0RF lidocaine [Lidoderm] 5 % adhesive patch,medicated 1 patch topical DAILY Qty: 30 0RF Rx Instructions: leave on most painful area for up to 12 hrs No Action Bevespi Aerosphere 9-4.8 mcg HFA aerosol inhaler 2 puff inhalation BID 30 Days Qty: 1 6RF finasteride 5 mg tablet 5 mg PO DAILY 90 Days Qty: 90 3RF tamsulosin 0.4 mg capsule 0.4 mg PO BEDTIME 90 Days Qty: 90 3RF tadalafil 20 mg tablet 20 mg PO ONCE PRN (Reason: sexual activity) 30 Days Qty: 30 1RF Rx Instructions: Use 60 minutes prior to intended activity cod liver oil Oil 5 ml PO DAILY acetaminophen [Tylenol 8 Hour] 650 mg tablet extended release 650 mg PO Q12H lisinopril 5 mg tablet 5 mg PO DAILY Qty: 90 3RF Combivent Respimat 20-100 mcg/actuation mist 1 puff inhalation Q6H Qty: 4 6RF Referrals: Physician,Unknown J [Primary Care Provider] - Interventions: ED Discharge Assessment Last Done: 01/15/23 12:58 Discharge Date/Time: 01/15/23 12:58
[2023-01-15] MEDS: Lidocaine 4 % Patch ADH..PATCH 1 PATCH TRANSDERMA (11:09)
[2023-01-15] MEDS: Ketorolac Tromethamine 15 MG/ML VIAL IM (11:09)
[2023-01-15] MEDS: Acetaminophen 325 MG TABLET 975 MG PO (11:09)
[2023-01-15 12:30] VITALS: BP 194/85; PULSE 61; RESP 16; TEMP 36.5; O2SAT 99
== END 2023-01-15 12:58 | disposition home or self-care (01) ==
PROVIDERS: Emergency Provider Emergency Medicine
DX: M54.16 Radiculopathy, lumbar region (principal); I10 Essential (primary) hypertension; F17.210 Nicotine dependence, cigarettes, uncomplicated; Z79.899 Other long term (current) drug therapy
CPT/HCPCS: 72100; 73502; 96372; 99284; J1885

== ENCOUNTER 2023-04-03 06:35 | Outpatient (REF) | payer MEDICARE, MEDICAID, SELFPAY ==
[2023-04-03 09:38] LABS: Prostate Specific Antigen 9.98 ng/mL (<0.05-4.0)
== END 2023-04-03 06:36 | disposition home or self-care (01) ==
LOC: HO.LAB 06:35
PROVIDERS: PCP Internal Medicine; Visit Provider Urology
DX: N40.1 Benign prostatic hyperplasia with lower urinary tract symptoms (principal); R33.8 Other retention of urine; Z12.5 Encounter for screening for malignant neoplasm of prostate
CPT/HCPCS: 36415; 84153

== ENCOUNTER 2023-04-08 14:58 | Outpatient (AMB) | payer MEDICARE, MEDICAID, SELFPAY ==
--- NOTE | 2023-04-08 15:14 | A.OFFVIS_ITS ---
Intake Intake Visit Reasons: 6M PSA(set) Intake Note: Patient is present for Follow Up PSA Urology Med:Finasteride, Tadalafil, Tamsulosin Antibiotic Allergy:None Blood Thinner: None Allergies No Known Allergies Allergy (Verified 04/08/23 15:16) Medication List - Last Reconciled 04/08/23 by Marlon Ulloa MD acetaminophen (Tylenol) 650 mg (2 x 325 mg) PO QID PRN acetaminophen ER (Tylenol 8 Hour) 650 mg PO Q12H cod liver oil 5 mL PO DAILY Combivent Respimat 20-100 mcg/actuation (ipratropium-albuterol) 1 puff inhalation Q6H NS cyclobenzaprine 10 mg PO TID PRN finasteride 5 mg PO DAILY 90 days glycopyrrolate-formoterol 9-4.8 mcg (Bevespi Aerosphere) 2 puffs inhalation BID 30 days lidocaine 5% (Lidoderm) 1 patch topical DAILY lisinopril 5 mg PO DAILY tadalafil 20 mg PO ONCE PRN 30 days tamsulosin 0.4 mg PO BEDTIME 90 days HPI HPI Comments History of Present Illness Details Fredi KOEHLER is a very pleasant male. They are a patient of Dr. Pierre. They are seen in the office today for the following urologic conditions. - neurogenic bladder - incomplete bladder emptying - erectile dysfunction PVR 140cc PSA remains elevated 82-year-old male extremely large prostate on JOSE Neurogenic Bladder:?Very happy with emptying ?Current medication finasteride and tamsulosin ?Wants to continue with follow-up. ? They are here for ?further management for incomplete emptying neurogenic bladder.? Urinary retention initially found?after ER visit for spontaneous retention.? Voiding trial outcome?had 1200cc when placed 11/02 PSA 04/05 9.9 Erectile dysfunction Responsive to Cialis PFSH Medical History Benign prostatic hyperplasia with urinary retention COVID-19 vaccination refused Duodenitis Erosive gastritis with hemorrhage Essential hypertension Hearing impairment Hiatal hernia Hx of gastritis Hx of syncope Insomnia disorder, with non-sleep disorder mental comorbidity Intermittent lightheadedness Normocytic normochromic anemia Productive cough Refused influenza vaccine Refused pneumococcal vaccination Smokes with greater than 40 pack year history Vaccine refused by patient Vitamin D deficiency Surgical History No pertinent past surgical history Family History Father Parkinson's disease Social History Housing: Apartment Alcohol intake: former Patient Tobacco Use Status: Current everyday Tobacco user Tobacco use type: Cigarette Cigarette Packs Per Day: 0 Cigarettes Per Day: 10 e-Cigarette/Vaping Use: Never Used service: No Current occupational status: retired Cognitive needs: No Hearing needs: Yes Vision needs: Yes Review of Systems Const Denies chills and Denies fever(s) Card Reports no additional complaints and Denies syncope Resp Denies cough GI Denies abdominal pain and Denies heartburn Reports as per HPI and Denies change in libido Neuro Denies syncope Psych Denies change in libido Endo Denies change in libido Physical Exam Const General: cooperative, healthy appearing, comfortable and no acute distress Orientation/consciousness: patient oriented x3 HEENT Face and sinus: Yes normal facial exam Mouth: moist mucous membranes Neck Neck: Yes normal visual inspection, Yes full ROM and Yes trachea midline Chest Chest palpation & inspection: normal inspection of the chest Resp Effort & Inspection: normal respiratory effort, able to speak in complete sentences and no respiratory distress GI Inspection: Yes normal to inspection Rectal Exam - Male: Yes normal sphincter tone and Yes prostate normal Male General Exam: Yes normal external exam Penis: normal penis and circumcised Meatus: meatus normal Scrotum: scrotum normal Testes: Testes normal Back/Spine/Pelvis Cervical Spine: normal cervical lordosis Thoracic/Lumbar Spine: thoracic and lumbar spine normal to inspection Skin General skin exam: no rashes or lesions noted Neuro General: patient oriented x3, gait normal, tone normal and moves all extremities Extrem General: Yes normal to inspection and Yes capillary refill normal Assessment & Plan Assessment & Plan (1) Erectile dysfunction: Code(s): N52.9 - Male erectile dysfunction, unspecified (2) Benign prostatic hyperplasia with urinary retention: Code(s): N40.1 - Benign prostatic hyperplasia with lower urinary tract symptoms; R33.8 - Other retention of urine Plan 6 month follow-up Orders: Orders PSA,Total (Free>4and<10) 6 Months N40.1 - Benign prostatic hyperplasia with lowe r urinary tract symptoms, R33.8 - Other retention of urine Medications: Refilled tamsulosin 0.4 mg PO BEDTIME 90 caps 3RF 90 days N40.1 - Benign prostatic hyperplasia with lower urinary tract symptoms, R33.8 - Other retention of urine finasteride 5 mg PO DAILY 90 tabs 3RF 90 days N40.1 - Benign prostatic hyperplasia with lower urinary tract symptoms, R33.8 - Other retention of urine Patient Instructions: Imaging studies, laboratory and physical exam results were discussed and reviewed in detail. No major barriers to patient understanding were identified. An opportunity to ask questions regarding the treatment plan was provided. All questions were answered. The patient expressed understanding and agreement with the above treatment plan. The patient is aware they should contact our office by phone for worsening of their current condition or the appearance of new urologic symptoms. Compliance is encouraged with any medications and followup testing that is ordered. It is a privilege to participate in the urologic care of your patient. If you have any questions or concerns regarding treatment for the above conditions, or other urologic issues, please do not hesitate to contact me. The office teleph one contact is [phone]. This note is constructed using voice recognition software. While every effort has been made to ensure accuracy paper box cutter errors may have been included. Yours sincerely, Dr Marlon Ulloa MD, R[facility] - Urology Providers of Expert, Compassionate Care for the Genitourinary System Coding Level of Care Code Est Pt Level 3 (35062) Diagnoses Erectile dysfunction N52.9 Benign prostatic hyperplasia with urinary retention N40.1; R33.8
== END 2023-04-08 15:37 | disposition home or self-care (01) ==
PROVIDERS: Visit Provider Urology
DX: N52.9 Male erectile dysfunction, unspecified (principal); N40.1 Benign prostatic hyperplasia with lower urinary tract symptoms; R33.8 Other retention of urine
CPT/HCPCS: 99213

== ENCOUNTER → 2023-04-08 14:58 | Outpatient (BNVA) | payer MEDICARE, MEDICAID, SELFPAY | PROVIDERS: Visit Provider Urology | DX: N52.9 Male erectile dysfunction, unspecified (principal); N40.1 Benign prostatic hyperplasia with lower urinary tract symptoms; R33.8 Other retention of urine | CPT/HCPCS: 99212 ==

== ENCOUNTER 2023-09-02 10:44 | Emergency (ER) | payer MEDICARE, MEDICAID, SELFPAY ==
[2023-09-02 11:27] VITALS: BP 139/78; PULSE 85; RESP 19; TEMP 36.6; O2SAT 98; BMI 21.3
--- NOTE | 2023-09-02 11:31 | ED_ITS ---
HPI - Male Genitourinary General Chief complaint: Urogenital-Male Stated complaint: Unable to Urinate Prostate Issues Time Seen by Provider: 09/02/23 11:47 Source: patient Mode of arrival: ambulatory Limitations: no limitations History of Present Illness HPI Narrative: 83-year-old male history of gastritis, BPH with urinary retention, hypertension who presents emergency department for evaluation of difficulty urinating since routine 100 hours yesterday. He states that prior to onset of the symptom he did has some dysuria with frequency. He states that he was unable to pass urine, he felt his abdomen was distended and he was having pain therefore came to emergency department for evaluation. He states that this is happened to him in the past and has required a Head catheter. He denied fever, chills, nausea, vomiting. Related Data Home Medications Medication Instructions Recorded Confirmed acetaminophen 650 mg 650 mg PO Q12H 07/10/21 09/23/23 tablet,extended release (Tylenol 8 Hour) cod liver oil 5 ml PO DAILY 07/10/21 09/23/23 Previous Rx's Medication Instructions Recorded glycopyrrolate 9 mcg-formoterol 2 puff inhalation BID 30 days #1 ea 04/03/21 4.8 mcg HFA aerosol inhaler (Bevespi Aerosphere) Combivent Respimat 20 mcg-100 1 puff inhalation Q6H #4 grams 12/30/22 mcg/actuation solution for inhalation (ipratropium-albuterol) lisinopril 5 mg tablet 5 mg PO DAILY #90 tabs 12/30/22 acetaminophen 325 mg tablet 650 mg (2 x 325 mg) PO QID PRN 01/15/23 (Tylenol) pain #30 tabs cyclobenzaprine 10 mg tablet 10 mg PO TID PRN muscle spasm #10 01/15/23 tabs lidocaine 5 % topical patch 1 patch topical DAILY #30 ea 01/15/23 (Lidoderm) finasteride 5 mg tablet 5 mg PO DAILY 90 days #90 tabs 04/08/23 tamsulosin 0.4 mg capsule 0.4 mg PO BEDTIME 90 days #90 caps 04/08/23 tadalafil 20 mg tablet 20 mg PO ONCE PRN sexual activity 06/26/23 30 days #30 tabs levofloxacin 500 mg tablet 500 mg PO DAILY 7 days #7 tabs 09/02/23 levofloxacin 500 mg tablet 500 mg PO DAILY 7 days #7 tabs 09/09/23 cefuroxime axetil 500 mg tablet 500 mg PO BID 7 days #14 tabs 09/23/23 clotrimazole-betamethasone 1 1 appl topical BID apply to penis 09/23/23 %-0.05 % topical cream 2 weeks #45 grams Allergies Allergy/AdvReac Type Severity Reaction Status Date / Time No Known Allergies Allergy Verified 09/23/23 15:49 Review of Systems 2 Review of Systems: Yes all other systems are reviewed and are negative [facility] Past Medical History Medical History Vaccine refused by patient Refused pneumococcal vaccination COVID-19 vaccination refused Refused influenza vaccine Vitamin D deficiency Hx of gastritis Hearing impairment Normocytic normochromic anemia Benign prostatic hyperplasia with urinary retention Duodenitis Erosive gastritis with hemorrhage Hiatal hernia Productive cough Smokes with greater than 40 pack year history Intermittent lightheadedness Essential hypertension Insomnia disorder, with non-sleep disorder mental comorbidity Hx of syncope Surgical History No pertinent past surgical history Family History Family History Father Parkinson's disease Social History Social History Housing: Apartment Alcohol intake: former Patient Tobacco Use Status: Current everyday Tobacco user Tobacco use type: Cigarette Cigarette Packs Per Day: 0 Cigarettes Per Day: 10 e-Cigarette/Vaping Use: Never Used service: No Current occupational status: retired Cognitive needs: No Hearing needs: Yes Vision needs: Yes Physical Exam 2 Vital Signs: Vital Signs: Last Vital Signs Temp 98.2 F 09/02/23 14:37 Pulse 78 09/02/23 14:37 Resp 16 09/02/23 14:37 BP 191/90 H 09/02/23 14:37 Pulse Ox 97 09/02/23 14:37 O2 Del Method Room Air 09/02/23 14:37 BMI result Body Mass Index 21.3 Vital signs revealed an elevated blood pressure of 152/91 otherwise unremarkable Exam General: Awake, alert in no distress Head: Normocephalic, atraumatic EENT: PERRL, Lids normal, sclera normal, conjunctiva normal, nose normal , ears normal, throat without erythema or exudates Neck: Supple, no adenopathy, no trachea midline or C-spine tenderness Lung: breath sounds symmetric, no wheezing, rales or rhonchi Chest: symmetric movement, nontender Heart: regular rate and rhythm, normal S1, S2 no murmurs or rubs Abdomen: soft, palpable bladder which is moderate to severely tender to palpate, normal bowel sounds Back: no vertebral tenderness, no CVAT Extremities: no deformities, moves all extremities symmetrically Neuro: Awake, alert, oriented, normal speech,moves all extremities symmetrically Psych: Pleasant, cooperative Course Course Course Narrative: RME: 83 yold male with pmh of BPH presents to the ED for no urination for 12 hours. patietn brought inside the ED for head. bladder scan ordered Medications Administered Discontinued Medications Generic Name Dose Route Start Last Admin Trade Name Freq PRN Reason Stop Dose Admin Levofloxacin 500 mg 09/02/23 16:04 09/02/23 16:17 Levofloxacin 500 Mg Tablet PO 09/02/23 16:05 500 mg ONCE ONE Administration Medical Decision Making Medical Decision Making [facility] Narrative: 83-year-old male history of gastritis, BPH with urinary retention, hypertension who presents emergency department for evaluation of difficulty urinating since routine 100 hours yesterday. He states that prior to onset of the symptom he did has some dysuria with frequency. Exam did reveal a tender distended bladder. Following evaluation was ordered: CBC, CMP, urinalysis. I did order Head catheter placement by nursing. 16:01 My interpretation patient's laboratory evaluation is as follows: WBC low 4700. H&H is low 11.6 and 33.9-baseline. BUN elevated 22-similar elevations in the past, creatinine normal. AST is elevated 43. Urinalysis 2+ blood. Microscopic revealed greater than 20 RBCs, 0-5 WBCs, no bacteria-suggests against urinary tract infection. Patient had a Head catheter placed by nursing staff and drained greater than 800 cc of urine. Patient is on finasteride. Patient's urinary obstruction may be secondary to acute prostatitis therefore he was treated with Levaquin 500 mg orally and 500 mg once a day for 7 days Patient will be discharged home with a Head catheter in place and will need to follow-up with urology for re-evaluation in 4-7 days. Differential Diagnosis Differential Diagnoses: The differential diagnosis associated with the presentation includes Differential diagnosis includes was not limited to urinary tract infection, urinary retention, obstructive uropathy/acute kidney injury, electrolyte abnormality Admission/Observation Consideration of admission/observation: Escalation of care including admission/observation considered Lab Data [facility] Lab Attestation statement: I reviewed the patient's lab results. See MDM above 09/02/23 12:30 09/02/23 12:30 Labs: Lab Results 09/02/23 09/02/23 Range/Units 12: 12:30 WBC 4.7 L (4.8-10.8) X10*3/uL RBC 3.75 L (4.60-5.80) X10*6/uL Hgb 11.6 L (14.0-18.0) g/dl Hct 33.9 L (42.0-52.0) % MCV 90.4 (80.0-98.0) fL MCH 30.9 (27.0-33.0) pg MCHC 34.2 (31.0-36.0) g/dl RDW 14.2 (11.0-16.0) % Plt Count 181 (160-400) X10*3/uL MPV 10.4 (9.4-12.4) fL Immature Gran % (Auto) 0.4 (0.0-0.4) % Neut % (Auto) 74.9 H (45-73) % Lymph % (Auto) 18.5 L (20-40) % [place] % (Auto) 4.9 (2-11) % Eos % (Auto) 0.9 (0-4) % Baso % (Auto) 0.4 (0-2) % Lymph # (Auto) 0.9 L (1.2-4.9) X10*3/uL [place] # (Auto) 0.2 (0.1-1.2) X10*3/uL Eos # (Auto) 0.0 (0.0-0.4) X10*3/uL Baso # (Auto) 0.0 (0.0-0.2) X10*3/uL Abs Immat Gran (auto) 0.02 (0.00-0.03) X10*3/uL Absolute Neuts (auto) 3.5 (2.0-8.3) x10*3/uL Absolute Nucleated RBC 0.000 (0.0-0.012) X10*3/uL Nucleated RBC % (auto) 0.0 (0.0-0.2) /100WBC Sodium 137 (135-145) mmol/L Potassium 4.0 (3.3-5.1) mmol/L Chloride 104 (96-108) mmol/L Carbon Dioxide 22 (22-29) mmol/L Anion Gap 15 (12-20) BUN 22 H (9-16) mg/dL Creatinine 1.27 (0.5-1.4) mg/dL Estim Creat Clear Calc 35.1 Estimated GFR 54 Random Glucose 109 (60-115) mg/dL Calcium 9.5 D (8.4-10.2) mg/dL Total Bilirubin 0.7 (0.0-1.0) mg/dL AST 43 H (5-37) U/L ALT 27 (0-40) U/L Alkaline Phosphatase 60 (39-117) U/L Total Protein 7.9 (6.5-8.0) g/dL Albumin 3.9 (3.5-5.0) g/dL Urine Color Yellow Urine Appearance Clear Urine pH 7.0 (5.0-9.0) Ur Specific [place] 1.015 (1.005-1.025) Urine Protein Negative (Neg-Trace) mg/dL Urine Glucose (UA) Negative (Negative) mg/dL Urine Ketones Negative (Negative) mg/dL Urine Blood Moderate (2+) H (Negative) Urine Nitrite Negative (Negative) Ur Leukocyte Esterase Negative (Negative) Urine RBC >20 H (0-2) /HPF Urine WBC 0-5 (0-5) /HPF Ur Squamous Epith Cells 0-2 (0-2) /HPF Urine Bacteria None Seen (None Seen) Hyaline Casts 0-2 (0-2) /LPF Prescription Management I considered prescription management with: Antibiotic Chronic Conditions Patient?s care impacted by: Other (COPD, BPH) Discharge Plan Discharge Clinical Impression: Acute prostatitis, Acute urinary retention Patient Disposition: Home, Self-Care Instructions: Prostatitis (ED), Urinary Retention in Men (ED) Additional Instructions: Your blood work was normal, including your kidney function Your urinalysis was negative for urine infection but I believe that you may have a prostate infection which caused you to not be able to urinate Take Levaquin 500 mg pills, 1 pill once a day for 7 days. You got your 1st dose here in the emergency department an you should take your next dose tomorrow at 4pm Continue taking all your other medications as prescribed. Take Tylenol (acetaminophen) 500 mg pills, 2 pills every 6 hours as needed for pain or fever. Keep the Head catheter and until you can follow-up with your urologist within 4-7 days. Use the leg bag during the day and the large bag at night. Follow-up with your doctor in 2 days. Please return to the emergency department if your symptoms get worse or if you develop any symptoms that are concerning to you. Prescriptions: New levofloxacin 500 mg tablet 500 mg PO DAILY 7 Days Qty: 7 0RF No Action Bevespi Aerosphere 9-4.8 mcg HFA aerosol inhaler 2 puff inhalation BID 30 Days Qty: 1 6RF tadalafil 20 mg tablet 20 mg PO ONCE PRN (Reason: sexual activity) 30 Days Qty: 30 1RF Rx Instructions: Use 60 minutes prior to intended activity levofloxacin 500 mg tablet 500 mg PO DAILY 7 Days Qty: 7 0RF cyclobenzaprine 10 mg tablet 10 mg PO TID PRN (Reason: muscle spasm) Qty: 10 0RF acetaminophen [Tylenol] 325 mg tablet 650 mg PO QID PRN (Reason: pain) Qty: 30 0RF lidocaine [Lidoderm] 5 % adhesive patch,medicated 1 patch topical DAILY Qty: 30 0RF Rx Instructions: leave on most painful area for up to 12 hrs cod liver oil Oil 5 ml PO DAILY acetaminophen [Tylenol 8 Hour] 650 mg tablet extended release 650 mg PO Q12H lisinopril 5 mg tablet 5 mg PO DAILY Qty: 90 3RF Combivent Respimat 20-100 mcg/actuation mist 1 puff inhalation Q6H Qty: 4 6RF clotrimazole-betamethasone 1-0.05 % cream 1 appl topical BID 14 Days Qty: 45 0RF cefuroxime axetil 500 mg tablet 500 mg PO BID 7 Days Qty: 14 0RF tamsulosin 0.4 mg capsule 0.4 mg PO BEDTIME 90 Days Qty: 90 3RF finasteride 5 mg tablet 5 mg PO DAILY 90 Days Qty: 90 3RF Referrals: Marlon Ulloa MD [Physician] - 1 week (Urinary retention, Head catheter placed, started on Levaquin for possible prostatitis needs follow-up in 4-7 days) Interventions: ED Discharge Assessment Last Done: 09/02/23 17:18 Discharge Date/Time: 09/02/23 17:19
[2023-09-02 11:38] VITALS: BP 152/91; PULSE 90; RESP 16; O2SAT 98
[2023-09-02 12:35] LABS: MANUAL DIFF FLAG NO
[2023-09-02 12:42] LABS: Basophils Percent Auto 0.4 % (0-2); Eosinophils Percent Auto 0.9 % (0-4); Hematocrit 33.9 % (42.0-52.0); Hemoglobin 11.6 g/dl (14.0-18.0); Imm Gran Abs Auto 0.02 X10*3/uL (0.00-0.03); Imm Gran Pct Auto 0.4 % (0.0-0.4); Lymphocytes Absolute Auto 0.9 X10*3/uL (1.2-4.9); Lymphocytes Percent Auto 18.5 % (20-40); Mean Corpuscular HGB Conc 34.2 g/dl (31.0-36.0); Mean Corpuscular Hemoglobin 30.9 pg (27.0-33.0); Mean Corpuscular Volume 90.4 fL (80.0-98.0); Mean Platelet Volume 10.4 fL (9.4-12.4); Monocytes Absolute Auto 0.2 X10*3/uL (0.1-1.2); Monocytes Percent Auto 4.9 % (2-11); Neutrophils Absolute Auto 3.5 x10*3/uL (2.0-8.3); Neutrophils Percent Auto 74.9 % (45-73); Platelet Count 181 X10*3/uL (160-400); Red Blood Count 3.75 X10*6/uL (4.60-5.80); Red Cell Distribution Width 14.2 % (11.0-16.0); White Blood Count 4.7 X10*3/uL (4.8-10.8)
[2023-09-02 12:44] LABS: Appearance Urine Clear; Color Urine Yellow; Glucose Urine UA Negative (Negative); Leukocyte Esterase Urine Negative (Negative); Nitrite Urine Negative (Negative); Specific Gravity - Urine 1.015 (1.005-1.025); UMIC TRIGGER UACC YES; Urine Blood Moderate (2+) (Negative); Urine Ketones Negative (Negative); Urine Protein Negative (Neg-Trace)
[2023-09-02 12:49] LABS: Bacteria Urine None Seen (None Seen); Hyaline Casts Urine 0-2 /LPF (0-2); RBC Urine >20 /HPF (0-2); Squamous Epithelial Cell Urine 0-2 /HPF (0-2); WBC Urine 0-5 /HPF (0-5)
[2023-09-02 12:56] LABS: Alanine Aminotransferase 27 U/L (0-40); Albumin Level 3.9 g/dL (3.5-5.0); Alkaline Phosphatase 60 U/L (39-117); Anion Gap 15 (12-20); Aspartate Amino Transferase 43 U/L (5-37); Bilirubin Total 0.7 mg/dL (0.0-1.0); Blood Urea Nitrogen 22 mg/dL (9-16); Calcium 9.5 mg/dL (8.4-10.2); Carbon Dioxide 22 mmol/L (22-29); Chloride 104 mmol/L (96-108); Creatinine Clr Calc Pharmacy 35.1; Estimated Glomerular Filt Rate 54; Glucose Random 109 mg/dL (60-115); Sodium 137 mmol/L (135-145); Total Protein 7.9 g/dL (6.5-8.0)
[2023-09-02 14:37] VITALS: BP 191/90; PULSE 78; RESP 16; TEMP 36.8; O2SAT 97
[2023-09-02] MEDS: levoFLOXacin 500 MG TABLET PO (16:17)
== END 2023-09-02 17:19 | disposition home or self-care (01) ==
PROVIDERS: Physician Assistant; Emergency Provider Emergency Medicine Emergency Medical Services
DX: N41.0 Acute prostatitis (principal); R33.9 Retention of urine, unspecified; R35.0 Frequency of micturition; Z79.899 Other long term (current) drug therapy
CPT/HCPCS: 36415; 51702; 51798; 80053; 81001; 85025; 99283; 99285

== ENCOUNTER 2023-09-08 11:51 | Emergency (ER) | payer MEDICARE, MEDICAID, SELFPAY ==
--- NOTE | 2023-09-08 12:10 | ED_ITS ---
HPI - General Adult General Chief complaint: Urogenital-Male Stated complaint: Removable of Head Source: patient Mode of arrival: ambulatory Limitations: no limitations History of Present Illness HPI narrative: 83 year old male, tobacco smoker with 40 pack year history, with pmhx of HTN, COPD, BPH, and anemia presents to the ED this morning requesting removal of head catheter. Patient was seen in our ED 5 days ago for enlarged prostate requiring head catheter placement. He states he was told by his ED provider to return in 5 days to have the catheter removed. He denies scheduling follow up with urologist since ED visit 5 days ago. Has been taking finasteride as prescribed. He is currently taking Levaquin for suspected urinary tract infection and endorses compliance with antibiotics. States the catheter has been draining appropriately. He denies fever, chills, nausea, vomiting, flank pain, abdominal pain, hematuria, penile discharge. Related Data Home Medications Medication Instructions Recorded Confirmed acetaminophen 650 mg 650 mg PO Q12H 07/10/21 04/08/23 tablet,extended release (Tylenol 8 Hour) cod liver oil 5 ml PO DAILY 07/10/21 04/08/23 Previous Rx's Medication Instructions Recorded glycopyrrolate 9 mcg-formoterol 2 puff inhalation BID 30 days #1 ea 04/03/21 4.8 mcg HFA aerosol inhaler (Bevespi Aerosphere) Combivent Respimat 20 mcg-100 1 puff inhalation Q6H #4 grams 12/30/22 mcg/actuation solution for inhalation (ipratropium-albuterol) lisinopril 5 mg tablet 5 mg PO DAILY #90 tabs 12/30/22 acetaminophen 325 mg tablet 650 mg (2 x 325 mg) PO QID PRN 01/15/23 (Tylenol) pain #30 tabs cyclobenzaprine 10 mg tablet 10 mg PO TID PRN muscle spasm #10 01/15/23 tabs lidocaine 5 % topical patch 1 patch topical DAILY #30 ea 01/15/23 (Lidoderm) finasteride 5 mg tablet 5 mg PO DAILY 90 days #90 tabs 04/08/23 tamsulosin 0.4 mg capsule 0.4 mg PO BEDTIME 90 days #90 caps 04/08/23 tadalafil 20 mg tablet 20 mg PO ONCE PRN sexual activity 06/26/23 30 days #30 tabs levofloxacin 500 mg tablet 500 mg PO DAILY 7 days #7 tabs 09/02/23 Allergies Allergy/AdvReac Type Severity Reaction Status Date / Time No Known Allergies Allergy Verified 09/09/23 00:26 Review of Systems Review of Systems: Yes all other systems are reviewed and are negative [facility] Past Medical History Medical History Vaccine refused by patient Refused pneumococcal vaccination COVID-19 vaccination refused Refused influenza vaccine Vitamin D deficiency Hx of gastritis Hearing impairment Normocytic normochromic anemia Benign prostatic hyperplasia with urinary retention Duodenitis Erosive gastritis with hemorrhage Hiatal hernia Productive cough Smokes with greater than 40 pack year history Intermittent lightheadedness Essential hypertension Insomnia disorder, with non-sleep disorder mental comorbidity Hx of syncope Surgical History No pertinent past surgical history Family History Family History Father Parkinson's disease Social History Social History Housing: Apartment Alcohol intake: former Patient Tobacco Use Status: Current everyday Tobacco user Tobacco use type: Cigarette Cigarette Packs Per Day: 0 Cigarettes Per Day: 10 e-Cigarette/Vaping Use: Never Used Advance Directives: No Advance Directives Information Provided: No service: No Current occupational status: retired Cognitive needs: No Hearing needs: Yes Vision needs: Yes Physical Exam ED Vital Signs: Vital Signs - 24 hr 09/08/23 12:11 Temperature 97.9 F Pulse Rate 92 Respiratory Rate 17 Blood Pressure 145/80 H Pulse Oximetry 97 Oxygen Delivery Method Room Air BMI result Body Mass Index 18.2 Patient is hypertensive for 145/80, otherwise vital signs are within normal limits. Const General: cooperative, comfortable, no acute distress, alert and awake Nutritional Appearance: thin Orientation/consciousness: patient oriented x3 Limitations: no limitations Eyes General: appearance normal, both eyes and all related structures Resp Effort & Inspection: normal respiratory effort Auscultation: clear to auscultation bilaterally Cardio Rate: regular rate Rhythm: regular rhythm GI Inspection: Yes normal to inspection Palpation (GI): Soft to palpation, nontender and no guarding Other: + head catheter in place. draining straw colored urine. no hematuria or blood clots in head bag. General: Yes no CVA tenderness Back/Spine/Pelvis Back: no CVA tenderness Skin General skin exam: no rashes or lesions noted Neuro General: patient oriented x3, gait normal and moves all extremities Cranial nerves: Yes CN's II-XII intact bilaterally Extrem General: Yes normal to inspection Course Course Course Narrative: Patient left the emergency department before myself or any of the other clinicians in the ED could re-evaluate patient or explain physical exam findings, need or lack there of for additional testing, treatment options, or treatment plan. Medical Decision Making Medical Decision Making [facility] Narrative: 83 year old male, tobacco smoker with 40 pack year history, with pmhx of HTN, COPD, BPH, and anemia presents to the ED this morning requesting removal of head catheter. Patient is hypertensive to 145/80, otherwise vital signs are within normal limits. He is generally well appearing and in no acute distress. Abdomen is soft, ND/NT, no rebound or guarding. Head catheter is in place and draining appropriately into head bag. Straw colored urine noted without hemturia or blood clots. Differential Diagnosis Differential Diagnoses: The differential diagnosis associated with the presentation includes as above. Admission/Observation Consideration of admission/observation: Escalation of care including admission/observation considered External Record Review External record reviewed: Inpatient record, Office record, Outpatient record, Prior outpatient labs, Prior outpatient radiology, Primary care record and Outside ED record Critical Care Time Critical Care Time Critical Care Time: No Discharge Plan Discharge Clinical Impression: Encounter for Head catheter removal Patient Disposition: Left W/O Completing Treatment Prescriptions: No Action Bevespi Aerosphere 9-4.8 mcg HFA aerosol inhaler 2 puff inhalation BID 30 Days Qty: 1 6RF tadalafil 20 mg tablet 20 mg PO ONCE PRN (Reason: sexual activity) 30 Days Qty: 30 1RF Rx Instructions: Use 60 minutes prior to intended activity cyclobenzaprine 10 mg tablet 10 mg PO TID PRN (Reason: muscle spasm) Qty: 10 0RF acetaminophen [Tylenol] 325 mg tablet 650 mg PO QID PRN (Reason: pain) Qty: 30 0RF lidocaine [Lidoderm] 5 % adhesive patch,medicated 1 patch topical DAILY Qty: 30 0RF Rx Instructions: leave on most painful area for up to 12 hrs levofloxacin 500 mg tablet 500 mg PO DAILY 7 Days Qty: 7 0RF cod liver oil Oil 5 ml PO DAILY acetaminophen [Tylenol 8 Hour] 650 mg tablet extended release 650 mg PO Q12H lisinopril 5 mg tablet 5 mg PO DAILY Qty: 90 3RF Combivent Respimat 20-100 mcg/actuation mist 1 puff inhalation Q6H Qty: 4 6RF tamsulosin 0.4 mg capsule 0.4 mg PO BEDTIME 90 Days Qty: 90 3RF finasteride 5 mg tablet 5 mg PO DAILY 90 Days Qty: 90 3RF Discharge Date/Time: 09/08/23 14:30
[2023-09-08 12:11] VITALS: BP 145/80; PULSE 92; RESP 17; TEMP 36.6; O2SAT 97; BMI 18.2
== END 2023-09-08 14:30 | disposition left against medical advice (07) ==
PROVIDERS: Emergency Provider Emergency Medicine
DX: Z46.6 Encounter for fitting and adjustment of urinary device (principal)
CPT/HCPCS: 99281

== ENCOUNTER 2023-09-08 23:59 | Emergency (ER) | payer MEDICARE, MEDICAID, SELFPAY ==
--- NOTE | ~2023-09-08 | CT_ITS ---
EXAMINATION: CT PELVIS WITHOUT CONTRAST CLINICAL INFORMATION: Pain. Question displaced catheter. COMPARISON: None available. TECHNIQUE: Helical scanning was performed with submillimeter collimation through the pelvis. Sagittal and coronal multiplanar 2-D reconstructions were obtained. This CT examination was performed using dose optimization techniques as appropriate, variously including the following: *Automated exposure control *Adjustment of mA and/or kV according to patient size (this includes techniques or standardized protocols for targeted exams where dose is matched to indication/reason for exam; i.e. extremities or head) *Use of iterative reconstruction technique DLP: 189 mGy-cm FINDINGS: PELVIS: The prostate gland is enlarged measuring 6 x 1 2 x 7.1 cm. There is air within a distended urinary bladder. There is mild urinary bladder wall thickening. The Castrejon catheter balloon is at the level of the base of the penis. Tip of the Castrejon catheter is along left aspect of the balloon extending inferiorly. There are significant air lucencies along the Castrejon catheter balloon extending to the region of the scrotum as well as towards the prostate and base of the left penis. There is atherosclerotic plaque of the distal abdominal aorta and branches. The bowel is grossly unremarkable. OSSEOUS STRUCTURES: There is lower lumbar disc degenerative change. There is bilateral moderate hip degenerative change. CT/CT pelvis wo IV con IMPRESSION: Significant prostate gland hypertrophy. Urinary bladder distention with air within the urinary bladder and mild urinary bladder wall thickening. Castrejon catheter terminates in the region of the base of the penis with significant surrounding air lucencies possibly posttraumatic. The tip of the Castrejon catheter lies along the Castrejon catheter balloon to the left. Castrejon catheter replacement needed. Consider urethrogram to assess for urethral injury.
[2023-09-09] VITALS (11 sets, daily range): BP systolic 118–196; BP diastolic 55–94; PULSE 63–82; RESP 14–19; TEMP 36.4–37; O2SAT 97–100; BMI 21.3
--- NOTE | 2023-09-09 03:36 | ED_ITS ---
HPI - Male Genitourinary General Chief complaint: Urogenital-Male Stated complaint: catheter issue, leaking blood Time Seen by Provider: 09/09/23 03:03 Source: patient Mode of arrival: ambulatory History of Present Illness HPI Narrative: 83-year-old male presents with complaints that he was getting up to go to the bathroom and accidentally pulled on his catheter no that there was blood draining. Patient states that he was supposed to get the catheter removed, however when he presented to the urology office they informed him that Dr. Ulloa was on vacation. Related Data Home Medications Medication Instructions Recorded Confirmed acetaminophen 650 mg 650 mg PO Q12H 07/10/21 04/08/23 tablet,extended release (Tylenol 8 Hour) cod liver oil 5 ml PO DAILY 07/10/21 04/08/23 Previous Rx's Medication Instructions Recorded glycopyrrolate 9 mcg-formoterol 2 puff inhalation BID 30 days #1 ea 04/03/21 4.8 mcg HFA aerosol inhaler ([employer]) Combivent Respimat 20 mcg-100 1 puff inhalation Q6H #4 grams 12/30/22 mcg/actuation solution for inhalation (ipratropium-albuterol) lisinopril 5 mg tablet 5 mg PO DAILY #90 tabs 12/30/22 acetaminophen 325 mg tablet 650 mg (2 x 325 mg) PO QID PRN 01/15/23 (Tylenol) pain #30 tabs cyclobenzaprine 10 mg tablet 10 mg PO TID PRN muscle spasm #10 01/15/23 tabs lidocaine 5 % topical patch 1 patch topical DAILY #30 ea 01/15/23 (Lidoderm) finasteride 5 mg tablet 5 mg PO DAILY 90 days #90 tabs 04/08/23 tamsulosin 0.4 mg capsule 0.4 mg PO BEDTIME 90 days #90 caps 04/08/23 tadalafil 20 mg tablet 20 mg PO ONCE PRN sexual activity 06/26/23 30 days #30 tabs levofloxacin 500 mg tablet 500 mg PO DAILY 7 days #7 tabs 09/02/23 Allergies Allergy/AdvReac Type Severity Reaction Status Date / Time No Known Allergies Allergy Verified 09/09/23 00:26 Review of Systems Review of Systems: Pertinent positives and negatives as stated in HPI [facility] Past Medical History Source: nursing notes reviewed Medical History Vaccine refused by patient Refused pneumococcal vaccination COVID-19 vaccination refused Refused influenza vaccine Vitamin D deficiency Hx of gastritis Hearing impairment Normocytic normochromic anemia Benign prostatic hyperplasia with urinary retention Duodenitis Erosive gastritis with hemorrhage Hiatal hernia Productive cough Smokes with greater than 40 pack year history Intermittent lightheadedness Essential hypertension Insomnia disorder, with non-sleep disorder mental comorbidity Hx of syncope Surgical History No pertinent past surgical history Family History Family History Father Parkinson's disease Social History Social History Housing: Apartment Alcohol intake: former Patient Tobacco Use Status: Current everyday Tobacco user Tobacco use type: Cigarette Cigarette Packs Per Day: 0 Cigarettes Per Day: 10 e-Cigarette/Vaping Use: Never Used Advance Directives: No Advance Directives Information Provided: No service: No Current occupational status: retired Cognitive needs: No Hearing needs: Yes Vision needs: Yes Physical Exam Vital Signs: Vital Signs: Last Vital Signs Temp 97.7 F 09/09/23 02:37 Pulse 76 09/09/23 02:37 Resp 14 09/09/23 02:37 BP 196/90 H 09/09/23 02:37 Pulse Ox 100 09/09/23 02:37 O2 Del Method Room Air 09/09/23 02:37 BMI result Body Mass Index 21.3 VITAL SIGNS: Reviewed. GENERAL: Well developed, well nourished, in no acute distress. HEAD: Normocephalic/atraumatic EYES: PERRLA, EOMI LUNGS: Normal breath sounds. No adventitious sounds or accessory muscle use. SpO2<100> CARDIOVASCULAR: Regular rate and rhythm without noted murmurs ABDOMEN: Soft, non-tender, non-distended with bowel sounds. : There is blood noted within the catheter and at the meatus of the penis MUSCULOSKELETAL: No tenderness, deformities, or effusions noted on gross inspection. EXTREMITIES: No cyanosis, clubbing or edema. SKIN: Inspection of the skin reveals no rashes NEUROLOGIC: Alert and oriented x 4. Strength and sensation to light touch were grossly intact x 4. Medical Decision Making Medical Decision Making [facility] Narrative: 83-year-old male who accidentally pulled the catheter, we will deflate the balloon and events catheter until we obtain urine, bladder scan initially 127 cc. After advancing the catheter we will then irrigate. No return after irrigation, patient in significant pain, bedside ultrasound demonstrates distended bladder, removed old catheter and instructed placement of a coude catheter without urine return, only blood. Sent patient over to CT scan for better evaluation of catheter complexity and catheter was noted to be in the p rostate with air around the urethra. 0605: I discussed the case with Dr. Ulloa who states that someone will be in at 08:00, patient placed NPO. 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 Please see the discussion above Discharge Plan Discharge Clinical Impression: Malfunction of Castrejon catheter, Hematuria Patient Disposition: Still a Patient Prescriptions: No Action Bevespi Aerosphere 9-4.8 mcg HFA aerosol inhaler 2 puff inhalation BID 30 Days Qty: 1 6RF tadalafil 20 mg tablet 20 mg PO ONCE PRN (Reason: sexual activity) 30 Days Qty: 30 1RF Rx Instructions: Use 60 minutes prior to intended activity cyclobenzaprine 10 mg tablet 10 mg PO TID PRN (Reason: muscle spasm) Qty: 10 0RF acetaminophen [Tylenol] 325 mg tablet 650 mg PO QID PRN (Reason: pain) Qty: 30 0RF lidocaine [Lidoderm] 5 % adhesive patch,medicated 1 patch topical DAILY Qty: 30 0RF Rx Instructions: leave on most painful area for up to 12 hrs levofloxacin 500 mg tablet 500 mg PO DAILY 7 Days Qty: 7 0RF cod liver oil Oil 5 ml PO DAILY acetaminophen [Tylenol 8 Hour] 650 mg tablet extended release 650 mg PO Q12H lisinopril 5 mg tablet 5 mg PO DAILY Qty: 90 3RF Combivent Respimat 20-100 mcg/actuation mist 1 puff inhalation Q6H Qty: 4 6RF tamsulosin 0.4 mg capsule 0.4 mg PO BEDTIME 90 Days Qty: 90 3RF finasteride 5 mg tablet 5 mg PO DAILY 90 Days Qty: 90 3RF
--- NOTE | 2023-09-09 04:00 | PC.NURSE ---
head cath hand irrigated per MD request; irrigated w/ 60mL, pt tolerated well; however no return back. MD notified.
[2023-09-09] MEDS: Acetaminophen 325 MG TABLET 975 MG PO (05:58)
[2023-09-09] MEDS: Ibuprofen 400 MG TABLET PO (06:02)
[2023-09-09 06:38] LABS: MANUAL DIFF FLAG NO
[2023-09-09 06:39] LABS: Basophils Percent Auto 0.5 % (0-2); Eosinophils Percent Auto 12.4 % (0-4); Hematocrit 28.1 % (42.0-52.0); Hemoglobin 9.9 g/dl (14.0-18.0); Imm Gran Abs Auto 0.04 X10*3/uL (0.00-0.03); Imm Gran Pct Auto 0.5 % (0.0-0.4); Lymphocytes Absolute Auto 1.2 X10*3/uL (1.2-4.9); Lymphocytes Percent Auto 15.1 % (20-40); Mean Corpuscular HGB Conc 35.2 g/dl (31.0-36.0); Mean Corpuscular Hemoglobin 31.8 pg (27.0-33.0); Mean Corpuscular Volume 90.4 fL (80.0-98.0); Mean Platelet Volume 9.2 fL (9.4-12.4); Monocytes Absolute Auto 0.4 X10*3/uL (0.1-1.2); Monocytes Percent Auto 5.4 % (2-11); Neutrophils Absolute Auto 5.3 x10*3/uL (2.0-8.3); Neutrophils Percent Auto 66.1 % (45-73); Platelet Count 164 X10*3/uL (160-400); Red Blood Count 3.11 X10*6/uL (4.60-5.80); Red Cell Distribution Width 14.3 % (11.0-16.0)
[2023-09-09 06:52] LABS: Alanine Aminotransferase 18 U/L (0-40); Alkaline Phosphatase 41 U/L (39-117); Anion Gap 9 (12-20); Aspartate Amino Transferase 31 U/L (5-37); Bilirubin Total 0.6 mg/dL (0.0-1.0); Blood Urea Nitrogen 20 mg/dL (9-16); Calcium 7.3 mg/dL (8.4-10.2); Carbon Dioxide 20 mmol/L (22-29); Chloride 114 mmol/L (96-108); Creatinine Clr Calc Pharmacy 66.5; Estimated Glomerular Filt Rate > 60; Glucose Random 91 mg/dL (60-115); Potassium 2.8 mmol/L (3.3-5.1); Sodium 140 mmol/L (135-145); Total Protein 5.7 g/dL (6.5-8.0)
--- NOTE | 2023-09-09 07:22 | PC.NURSE ---
approx 1hr after hand irrigating head pt began to complain of bladder discomfort; pt states he felt he needed to bear down in order to urinate and is unable to do so. upon assessment of the drainage bag still no output noted. tech to repeat bladder scan. notified of the above. instructed to hand irriage again with the assisance of another RN. this copy writer and Kati Mckenzie, RN went into room. hand irrigated w/ approx an additional 60cc. still no output noted. pt now is 10 out of 10 abd discomfort. new finding that pt has abdominal distension. notified and is at bedside. ultrasound performed, bladder noted to be full. instructed this copy writer and other RN to remove head cath and to place a coude. head removed. coude placed without difficulty by Kati Mckenzie and this RN at bedside. pt still complaining of pain at this time. minimal output of blood noted in tubing. notified, pt sent to CT scan per MD order. after return from CT this RN was instructed to removed catheter d/t incorrect placement. catheter was removed. pt is resting in bed comfortable at this time. states pain is about 2 out of 10. no bleeding noted from urethra. given ibuprofen and tylenol per NOV. pt continues to rest comfortable. will continue to monitor.
--- NOTE | 2023-09-09 08:50 | PC.NURSE ---
Report taken from Luis RN assumed care of pt at 0700. Pt resting on stretcher, skin pwd respirations even unlabored, abd slightly distended, still unable to urinate, awaiting urology consult. Will continue to monitor.
[2023-09-09] MEDS: Potassium Chloride/H20 10 MEQ/100 ML PIGGYBACK 100 MEQ IV ×2 (09:38→10:56)
[2023-09-09] MEDS: lisinopriL 5 MG TABLET PO (10:55)
--- NOTE | 2023-09-09 12:19 | PC.NURSE ---
md kelly cruz made aware bp remains elevated 171/91 and c/o 8/10 penile pain and unable to void despite urge. denies abdom pain/tenderness.
[2023-09-09] MEDS: Morphine Sulfate 4 MG/ML CARTRIDGE IVPUSH (13:05)
--- NOTE | 2023-09-09 13:11 | PC.NURSE ---
good from Uro at bedside to eval- aware bladder feels distended/c.o. penile pain
[2023-09-09] MEDS: cefTRIAXone sodium 1 GM in 0.9 % Sodium Chloride 50 ML IV (14:20)
--- NOTE | 2023-09-09 14:36 | PM.UROCN ---
History of Present Illness Consult details Consult date: 09/09/23 Narrative: Florentin had a head placed due to urinary retention. He came in to ED this morning complaining that the catheter got pulled out. ED staff attempted to place the head, CT pelvis was done and noted that the head was not in the bladder. On exam- the bladder was distended, pt was complaining of pain and unable to urinate. Consent was obtained. Flexible cysto noted trauma to the proximal bulbous urethra, the scope was not able to be manipulated into the bladder. 14 fr malencot SP tube was placed, catheter attached to gravity bag. Review of Systems Review of Systems: Yes all other systems are reviewed and are negative Constitutional: Constitutional: Reports no additional constitutional complaints Eyes: Eyes: Reports no additional eye complaints ENT: Reports system reviewed and no additional complaints, except as documented Cardiovascular: Cardiovascular: Denies dyspnea Respiratory: Respiratory: Denies cough and Denies dyspnea Gastrointestinal: Gastrointestinal: Reports no additional gastrointestinal complaints Musculoskeletal: Musculoskeletal: Reports no additional musculoskeletal complaints Integumentary/Breasts: Skin/Breast: Denies rash and Denies unusual bruising Neurologic: Reports system reviewed and no additional complaints, except as documented Psychiatric: Psychiatric: Reports no additional psychiatric complaints Endocrine: Endocrine: Reports no additional endocrine complaints Hematologic/Lymphatic: Hematologic/Lymphatic: Reports no additional hematologic/lymphatic complaints Allergic/Immunologic: Allergic/Immunologic: Reports no additional allergic/immunologic complaints PMFSH Past Medical History Medical History Vaccine refused by patient Refused pneumococcal vaccination COVID-19 vaccination refused Refused influenza vaccine Vitamin D deficiency Hx of gastritis Hearing impairment Normocytic normochromic anemia Benign prostatic hyperplasia with urinary retention Duodenitis Erosive gastritis with hemorrhage Hiatal hernia Productive cough Smokes with greater than 40 pack year history Intermittent lightheadedness Essential hypertension Insomnia disorder, with non-sleep disorder mental comorbidity Hx of syncope Family History Family History Father Parkinson's disease Surgical History Surgical History No pertinent past surgical history Social History Social History Housing: Apartment Alcohol intake: former Patient Tobacco Use Status: Current everyday Tobacco user Tobacco use type: Cigarette Cigarette Packs Per Day: 0 Cigarettes Per Day: 10 e-Cigarette/Vaping Use: Never Used service: No Current occupational status: retired Cognitive needs: No Hearing needs: Yes Vision needs: Yes Meds Allergies Allergy/AdvReac Type Severity Reaction Status Date / Time No Known Allergies Allergy Verified 09/23/23 15:49 Home Medications Medication Instructions Recorded Confirmed Last Taken Type acetaminophen 650 mg 650 mg PO Q12H 07/10/21 09/23/23 Unknown History tablet,extended release (Tylenol 8 Hour) cod liver oil 5 ml PO DAILY 07/10/21 09/23/23 Unknown History Physical Exam Vital Signs: Vital Signs: Last Vital Signs Temp 97.7 F 09/09/23 12:00 Pulse 80 09/09/23 12:00 Resp 16 09/09/23 13:05 BP 171/91 H 09/09/23 12:00 Pulse Ox 98 09/09/23 12:00 O2 Del Method Room Air 09/09/23 12:00 BMI result Body Mass Index 21.3 Const: General: healthy appearing, no acute distress and well developed Orientation/consciousness: patient oriented x3 HEENT: Head: Yes normocephalic and Yes atraumatic Eyes: Conjunctivae: conjunctivae normal Neck: Neck: Yes normal visual inspection Chest: Chest palpation & inspection: normal inspection of the chest Resp: Effort & Inspection: normal respiratory effort Cardio: Rate: regular rate GI: Other: bladder distended, supra pubic tenderness Inspection: Yes normal to inspection : Other: blood at the meatus Penis: normal penis Scrotum: scrotum normal Skin: General skin exam: no rashes or lesions noted Neuro: General: patient oriented x3 Extrem: General: No pedal edema Psych: Appearance: grossly normal Affect: normal affect Results Labs 09/09/23 06:33 09/09/23 06:33 Labs: Abnormal lab results 09/09/23 Range/Units 06:33 RBC 3.11 L (4.60-5.80) X10*6/uL Hgb 9.9 L (14.0-18.0) g/dl Hct 28.1 L (42.0-52.0) % MPV 9.2 L (9.4-12.4) fL Immature Gran % (Auto) 0.5 H (0.0-0.4) % Lymph % (Auto) 15.1 L (20-40) % Eos % (Auto) 12.4 H (0-4) % Eos # (Auto) 1.0 H (0.0-0.4) X10*3/uL Abs Immat Gran (auto) 0.04 H (0.00-0.03) X10*3/uL Potassium 2.8 L D (3.3-5.1) mmol/L Chloride 114 H (96-108) mmol/L Carbon Dioxide 20 L (22-29) mmol/L Anion Gap 9 L (12-20) BUN 20 H (9-16) mg/dL Calcium 7.3 L D (8.4-10.2) mg/dL Total Protein 5.7 L (6.5-8.0) g/dL Albumin 3.0 L (3.5-5.0) g/dL Short CBC 09/09/23 Range/Units 06:33 WBC 8.0 (4.8-10.8) X10*3/uL Hgb 9.9 L (14.0-18.0) g/dl Hct 28.1 L (42.0-52.0) % Plt Count 164 (160-400) X10*3/uL BMP 09/09/23 06:33 Sodium 140 Potassium 2.8 L D Chloride 114 H Carbon Dioxide 20 L BUN 20 H Creatinine 0.67 Calcium 7.3 L D Liver Function 09/09/23 Range/Units 06:33 Total Bilirubin 0.6 (0.0-1.0) mg/dL AST 31 (5-37) U/L ALT 18 (0-40) U/L Alkaline Phosphatase 41 (39-117) U/L Albumin 3.0 L (3.5-5.0) g/dL All other labs normal. Assessment and Plan (1) Hematuria: Status: Inactive (2) Urinary retention: Status: Acute (3) Urethral trauma: Status: Acute (4) Head catheter problem: Status: Acute Procedures Date of Service Date of Service: 10/05/23 Cystoscopy Consent Discussed risk and benefit or proposed procedure with the patient. Information consent for procedure given to the patient. Discussed technical aspects, risks, benefits and alternatives in full. Addressed all of the patient's questions and concerns regarding the procedure. The patient demonstrated knowledge and understanding. They wish to proceed with this procedure. Preparation The patient was prepped in the usual manner. A concierge receptionist was present and in the room. Genitalia was prepped with betadine solution in a sterile manner. Lidocaine Jelly 2% was placed into the urethra and 16Fr flexible Olympus cystoscope was inserted into the meatus after adequate lubrication. Abx: Rocephen one gram IV. Consent was obtained. Time-out was done per protocol. The genitalia and lower abdomen were prepped with Hibiclens. Findings: There was trauma noted to the proximal bulbous urethra. The cystoscope was not able to be manipulated into the bladder. Suprapubic Tube insertion: 1% lidocaine was injected into the lower abdomen, 2 fingerbreath's from the pubic symphysis in the midline, a 22 gauge spinal needle was used to withdraw urine and identify the bladder, the 14 fr mallancot SP tube was then placed over the needle assembly, with urine return >700mL. 22079-Tccfinlwm of temporary indwelling bladder catheter, complicated 35106-[id number] Procedure code (CPT) selection complete
--- NOTE | 2023-09-09 14:46 | PM.OP ---
Brief Operative Note Date of Service: 09/09/23 Pre-op diagnosis: Urinary retention, urethral trauma Post-op diagnosis: same Procedure: The patient was evaluated in the emergency room. Abx: Rocephen one gram IV. Consent was obtained. Time-out was done per protocol. The genitalia and lower abdomen were prepped with Hibiclens. 2% lidocaine jelly used transurethrally. The 16 Pashto flexible cystoscope was placed transurethrally. There was trauma noted to the proximal bulbous urethra. The cystoscope was not able to be manipulated into the bladder. 1% lidocaine was injected into the lower abdomen, 2 fingerbreath's from the pubic symphysis in the midline, a 22 gauge spinal needle was used to withdraw urine and identify the bladder, the 14 fr mallancot SP tube was then placed over the needle assembly, with urine return >700mL. Surgeon: Diana Nelson MD Anesthesia: local Was an Senior Pharmacy Technician used for this Procedure?: No Estimated blood loss (mL): 1 Urine output (mL): 750 Condition: stable Disposition: other
== END 2023-09-09 17:20 | disposition home or self-care (01) ==
PROVIDERS: Student in an Organized Health Care Education/Training Program; Emergency Provider Emergency Medicine Emergency Medical Services
DX: T83.011A Breakdown (mechanical) of indwelling urethral catheter, initial encounter (principal); Y73.2 Prosthetic and other implants, materials and accessory gastroenterology and urology devices associated with adverse incidents; S37.30XA Unspecified injury of urethra, initial encounter; R33.9 Retention of urine, unspecified; R31.9 Hematuria, unspecified; I10 Essential (primary) hypertension; X58.XXXA Exposure to other specified factors, initial encounter; Y93.9 Activity, unspecified; Y99.9 Unspecified external cause status; Y92.9 Unspecified place or not applicable
CPT/HCPCS: 36415; 51102; 51703; 52000; 72192; 80053; 85025; 96365; 96366; 96367; 96375; 99285; J0696; J2270; J3480

== ENCOUNTER → 2023-09-09 02:47 | Outpatient (BNV) | payer MEDICARE, MEDICAID, SELFPAY | PROVIDERS: Emergency Provider Emergency Medicine Emergency Medical Services; Visit Provider Urology | DX: R31.9 Hematuria, unspecified (principal); R33.9 Retention of urine, unspecified; S37.30XA Unspecified injury of urethra, initial encounter; T83.9XXA Unspecified complication of genitourinary prosthetic device, implant and graft, initial encounter | CPT/HCPCS: 51102; 99283 ==

== ENCOUNTER 2023-09-23 15:13 | Outpatient (AMB) | payer MEDICARE, MEDICAID, SELFPAY ==
--- NOTE | 2023-09-23 15:43 | A.OFFVIS_ITS ---
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 Required: No Accompanied by: Self / Same As Patient Allergies No Known Allergies Allergy (Verified 09/23/23 15:49) Medication List - Last Reconciled 09/23/23 by Diana Nelson MD acetaminophen (Tylenol) 650 mg (2 x 325 mg) PO QID PRN acetaminophen ER (Tylenol 8 Hour) 650 mg PO Q12H cefuroxime axetil 500 mg PO BID 7 days clotrimazole-betamethasone 1-0.05 % 1 appl topical BID 2 weeks cod liver oil 5 mL PO DAILY Combivent Respimat 20-100 mcg/actuation (ipratropium-albuterol) 1 puff inhalation Q6H NS cyclobenzaprine 10 mg PO TID PRN finasteride 5 mg PO DAILY 90 days glycopyrrolate-formoterol 9-4.8 mcg (Bevespi Aerosphere) 2 puffs inhalation BID 30 days levofloxacin 500 mg PO DAILY 7 days levofloxacin 500 mg PO DAILY 7 days lidocaine 5% (Lidoderm) 1 patch topical DAILY lisinopril 5 mg PO DAILY tadalafil 20 mg PO ONCE PRN 30 days tamsulosin 0.4 mg PO BEDTIME 90 days HPI HPI Comments History of Present Illness Details Florentin was seen in the emergency room on 09/09/23 due to gross hematuria and urinary retention. At that time a Head catheter was not able to be inserted and flexible cystoscopy noted traumatic changes of the bulbous urethra. A percutaneous suprapubic tube was placed at that time. In review of the patient's chart, the patient has been seen in the past by Dr. Ulloa for incomplete bladder emptying, neurogenic bladder and enlarged prostate. The patient presents for follow-up and states that he is urinating through the urethra. On examination the SP tube is in place it irrigates well using a 10 Slovak catheter with normal saline. I have disconnected the extension tubing and have placed a stopcock so that he can drain it p.r.n. if he has any difficulty with urination. Exam: There is mild redness around the suprapubic tube, there is mild erythema around the penile glans. I have discussed plan for cystoscopy as an outpatient for further evaluation of the urethra and possible Head catheter at that time in removal of SP tube Ceftin 500 mg twice a day for 7 days and Lotrimin cream to apply to the penile glans and the foreskin [facility] Medical History Vaccine refused by patient Refused pneumococcal vaccination COVID-19 vaccination refused Refused influenza vaccine Vitamin D deficiency Hx of gastritis Hearing impairment Normocytic normochromic anemia Benign prostatic hyperplasia with urinary retention Duodenitis Erosive gastritis with hemorrhage Hiatal hernia Productive cough Smokes with greater than 40 pack year history Intermittent lightheadedness Essential hypertension Insomnia disorder, with non-sleep disorder mental comorbidity Hx of syncope Surgical History No pertinent past surgical history Family History Father Parkinson's disease Social History Housing: Apartment Alcohol intake: former Patient Tobacco Use Status: Current everyday Tobacco user Tobacco use type: Cigarette Cigarette Packs Per Day: 0 Cigarettes Per Day: 10 e-Cigarette/Vaping Use: Never Used service: No Current occupational status: retired Cognitive needs: No Hearing needs: Yes Vision needs: Yes Physical Exam Const General: healthy appearing, no acute distress and well developed Orientation/consciousness: patient oriented x3 HEENT Head: Yes normocephalic and Yes atraumatic Eyes Conjunctivae: conjunctivae normal Neck Neck: Yes normal visual inspection Chest Chest palpation & inspection: normal inspection of the chest Resp Effort & Inspection: normal respiratory effort Cardio Rate: regular rate GI Inspection: Yes normal to inspection Palpation (GI): Soft to palpation Other: There is mild redness around the suprapubic tube, there is mild erythema around the penile glans. Scrotum: scrotum normal Skin General skin exam: no rashes or lesions noted Neuro General: patient oriented x3 Extrem General: No pedal edema Psych Appearance: grossly normal Affect: normal affect Assessment & Plan Assessment & Plan (1) Urethral trauma: Code(s): S37.30XA - Unspecified injury of urethra, initial encounter (2) Urinary retention: Code(s): R33.9 - Retention of urine, unspecified (3) Balanitis: Code(s): N48.1 - Balanitis (4) Encounter for care or replacement of suprapubic tube: Code(s): Z43.5 - Encounter for attention to cystostomy Plan Ceftin 500 mg twice a day for 7 days and Lotrimin cream to apply to the penile glans and the foreskin I have discussed plan for cystoscopy as an outpatient for further evaluation of the urethra and possible Head catheter at that time in removal of SP tube Medications: New cefuroxime axetil 500 mg PO BID 7 days 14 tabs 0RF clotrimazole-betamethasone 1-0.05 % 1 appl topical BID 2 weeks 45 grams 0RF apply to penis Patient Instructions: The patient had an opportunity to ask questions regarding treatment plan. All questions were answered. Laboratory studies and physical exam results were discussed and reviewed in detail. No major barriers to understanding were identified. The patient expressed understanding and agreement with the above treatment plan. The patient is aware they should contact our office by phone for worsening of their current condition or the appearance of new symptoms. Compliance is encouraged with any medications and followup testing that is ordered. It is a privilege to be allowed the opportunity to participate in the urologic care of your patient. If you have any questions or concerns regarding treatment for the above conditions please do not hesitate to contact me. The office telephone contact is [phone]. This note is constructed in part using voice recognition software. While every effort has been made to ensure accuracy siderographist errors may have been included. Yours sincerely, Diana Nelson MD Coding Level of Care Code Est Pt Level 4 (07886) Diagnoses Urethral trauma S37.30XA Urinary retention R33.9 Balanitis N48.1 Encounter for care or replacement of suprapubic tube Z43.5
== END 2023-09-23 16:33 | disposition home or self-care (01) ==
LOC: HO.HUSH 15:13
PROVIDERS: Visit Provider Urology
DX: S37.30XA Unspecified injury of urethra, initial encounter (principal); R33.9 Retention of urine, unspecified; N48.1 Balanitis; Z43.5 Encounter for attention to cystostomy
CPT/HCPCS: 99214

== ENCOUNTER → 2023-09-23 15:13 | Outpatient (BNVA) | payer MEDICARE, MEDICAID, SELFPAY | PROVIDERS: Visit Provider Urology | DX: S37.30XA Unspecified injury of urethra, initial encounter (principal); R33.9 Retention of urine, unspecified; N48.1 Balanitis; Z43.5 Encounter for attention to cystostomy | CPT/HCPCS: 99212 ==

== ENCOUNTER 2023-09-29 06:59 | Day surgery (SDC) | payer MEDICARE, MEDICAID, SELFPAY ==
--- NOTE | 2023-09-28 10:23 | HO.ANESPROP2 ---
Documented by User: Megan Stokes NP 09/28/23 10:25 HPI - Anesthesia Eval Consult details Narrative: 83yo M for Castrejon Insertion with Poss Insertion Suprapubic Tube Smoker K was low during ER visit 08/2023. Repeat DOS PMFSH Active Problems Active Problems: All Active Problems (Updated 09/23/23 @ 17:32 by Diana Nelson MD) Encounter for care or replacement of suprapubic tube (Acute) Balanitis (Acute) Castrejon catheter problem (Acute) Urethral trauma (Acute) Urinary retention (Acute) Vaccine refused by patient (Acute) Erectile dysfunction (Acute) Refused pneumococcal vaccination (Acute) COVID-19 vaccination refused (Acute) Refused influenza vaccine (Acute) Vitamin D deficiency (Acute) Hx of gastritis (Acute) Hearing impairment (Acute) Normocytic normochromic anemia (Acute) Benign prostatic hyperplasia with urinary retention (Acute) Hiatal hernia (Acute) Pulmonary nodules (Acute) COPD (chronic obstructive pulmonary disease) (Acute) Smokes with greater than 40 pack year history (Acute) Essential hypertension (Acute) Insomnia disorder, with non-sleep disorder mental comorbidity (Acute) Past Medical History Medical History Vaccine refused by patient Refused pneumococcal vaccination COVID-19 vaccination refused Refused influenza vaccine Vitamin D deficiency Hx of gastritis Hearing impairment Normocytic normochromic anemia Benign prostatic hyperplasia with urinary retention Duodenitis Erosive gastritis with hemorrhage Hiatal hernia Productive cough Smokes with greater than 40 pack year history Intermittent lightheadedness Essential hypertension Insomnia disorder, with non-sleep disorder mental comorbidity Hx of syncope Family History Family History Father Parkinson's disease Surgical History Surgical History No pertinent past surgical history Social History Social History Housing: Apartment Alcohol intake: former Patient Tobacco Use Status: Current everyday Tobacco user Tobacco use type: Cigarette Cigarette Packs Per Day: 0 Cigarettes Per Day: 10 e-Cigarette/Vaping Use: Never Used Use of substances other than those prescribed or required for medical reasons: No Are you DNR?: No Advance Directives: No Advance Directives Information Provided: Yes service: No Current occupational status: retired Cognitive needs: No Hearing needs: Yes Vision needs: Yes Meds Allergies Allergy/AdvReac Type Severity Reaction Status Date / Time No Known Allergies Allergy Verified 09/23/23 15:49 Home Medications Medication Instructions Recorded Confirmed Last Taken Type acetaminophen 650 mg 650 mg PO Q12H 07/10/21 09/23/23 Unknown History tablet,extended release (Tylenol 8 Hour) cod liver oil 5 ml PO DAILY 07/10/21 09/23/23 Unknown History Exam Pertinent Lab Results Pertinent Lab Results: Laboratory Tests 09/09/23 06:33 WBC 8.0 Hgb 9.9 L Hct 28.1 L Plt Count 164 BUN 20 H Creatinine 0.67 Assessment and Plan Assessment Anesthesia Assessment: Chart Reviewed Documented by User: Savanna Valenzuela MD 09/29/23 09:07 HPI - Anesthesia Eval Consult details Narrative: 83yo M for Castrejon Insertion with Poss Insertion Suprapubic Tube Smoker K was low during ER visit 08/2023. Repeat DOS k 3 PMFSH Past Medical History Medical History Vaccine refused by patient Refused pneumococcal vaccination COVID-19 vaccination refused Refused influenza vaccine Vitamin D deficiency Hx of gastritis Hearing impairment Normocytic normochromic anemia Benign prostatic hyperplasia with urinary retention Duodenitis Erosive gastritis with hemorrhage Hiatal hernia Productive cough Smokes with greater than 40 pack year history Intermittent lightheadedness Essential hypertension Insomnia disorder, with non-sleep disorder mental comorbidity Hx of syncope Family History Family History Father Parkinson's disease Family history of problems with anesthesia: No Surgical History Surgical History No pertinent past surgical history History of Problems with Anesthesia: No Social History Social History Housing: Apartment Alcohol intake: former Patient Tobacco Use Status: Current everyday Tobacco user Tobacco use type: Cigarette Cigarette Packs Per Day: 0 Cigarettes Per Day: 10 e-Cigarette/Vaping Use: Never Used Use of substances other than those prescribed or required for medical reasons: No Are you DNR?: No Advance Directives: No Advance Directives Information Provided: Yes service: No Current occupational status: retired Cognitive needs: No Hearing needs: Yes Vision needs: Yes Meds Allergies Allergy/AdvReac Type Severity Reaction Status Date / Time No Known Allergies Allergy Verified 09/23/23 15:49 Home Medications Medication Instructions Recorded Confirmed Last Taken Type acetaminophen 650 mg 650 mg PO Q12H 07/10/21 09/23/23 Unknown History tablet,extended release (Tylenol 8 Hour) cod liver oil 5 ml PO DAILY 07/10/21 09/23/23 Unknown History Exam Airway Mallampati Class: II TM Dist: >3cm Neck ROM: Limited Denture: Upper Heart: rrr Lungs: cta Assessment and Plan Assessment Anesthesia Assessment: Anesthesia Plan Discussed Final Anesthetic Review Family History of Problems with Anesthesia: No History of Problems with Anesthesia: No NPO: Yes ASA Class: III Final Preanesthetic Review: No Changes in Pt Med Stat, Meds/Allgs Chart Reviewed, Consent Obtained/Reviewed and Anes Risks/Benef Reviewed Patient Risk: Low Procedure Risk: Low Anesthetic Plan Anesthetic Plan: GA and MAC: Disposition: Standard PACU
[2023-09-29] VITALS (7 sets, daily range): BP systolic 156–176; BP diastolic 73–92; PULSE 60–87; RESP 16–18; TEMP 36.1–36.8; O2SAT 98–100; BMI 17.3
[2023-09-29 08:01] LABS: Anion Gap 14 (12-20); Carbon Dioxide 26 mmol/L (22-29); Chloride 103 mmol/L (96-108); Sodium 140 mmol/L (135-145)
[2023-09-29] MEDS: Lactated Ringers 1,000 ML 100 ML IVCONT (08:10)
[2023-09-29] MEDS: Gentamicin Sulfate 160 MG in 0.9 % Sodium Chloride 100 ML 100 MG IV (08:29)
--- NOTE | 2023-09-29 11:24 | W.PM.OPN ---
Operative Note Operative Note Date of Service: 09/29/23 Narrative: PREOP DIAGNOSIS: Urinary retention enlarged prostate, POSTOP DIAGNOSIS: Urinary retention enlarged prostate, PROCEDURE: CYSTOSCOPY TRANSURETHRAL RESECTION OF Prostate tissue mainly at the bladder neck, remove percutaneous suprapubic tube Anesthesia: General Details of procedure: The patient was brought into the operating room placed on the OR table in supine position. Gentamycin 160 mg, 2 g of Ancef IV. General anesthesia was administered. The patient was repositioned into lithotomy position, prepped and draped in the usual sterile fashion. Time-out was done per protocol. The 22 fr cystoscope was placed transurethrally, at the proximal bulbous urethra, there was evidence of healing from a false passage due to prior traumatic head insertion. The prostate was very large with trilobar tissue obscuring the bladder neck, with an obstructive median lobe. The trigone was not visualized well due to the elevated median lobe The 24 Occitan resectoscope was passed transurethrally into the bladder. There were moderate trabeculations and cellulle changes. The loop resectoscope was used to resect the prostate tissue at the bladder neck, an incision was made at the 5 O'clock position at the bladder neck, and the median lobe was further resected. The Ellik was used to irrigate out the prostatic chips. Once there was good hemostasis the resectoscope was removed. A [address] catheter 30 cc balloon was passed with the stylet without difficulty. 40 mL H20 injected into the balloon, head was placed to gravity drainage. The SP tube was removed and a dressing was applied. The patient was brought out of anesthesia and taken to recovery in stable condition. Complications: None Drains: [address]
[2023-09-29] MEDS: Phenazopyridine HCL 100 MG TABLET PO (12:09)
== END 2023-09-29 13:05 | disposition home or self-care (01) ==
PROVIDERS: Nurse Practitioner; Visit Provider Urology
PROC: (CPT 51102; principal; 2023-09-29 08:50)
DX: N40.1 Benign prostatic hyperplasia with lower urinary tract symptoms (principal); R33.8 Other retention of urine; N32.89 Other specified disorders of bladder; I10 Essential (primary) hypertension; D64.9 Anemia, unspecified; R05.8 Other specified cough; F17.210 Nicotine dependence, cigarettes, uncomplicated; Z79.899 Other long term (current) drug therapy
CPT/HCPCS: 52601; 36415; 80051; 88305; J0131; J0690; J1100; J1580; J2405; J2704; J2795; J3010

== ENCOUNTER → 2023-09-29 06:59 | Outpatient (BNV) | payer MEDICARE, MEDICAID, SELFPAY | PROVIDERS: Visit Provider Urology | DX: R33.9 Retention of urine, unspecified (principal); N40.0 Benign prostatic hyperplasia without lower urinary tract symptoms | CPT/HCPCS: 52601 ==

== ENCOUNTER → 2023-10-05 10:05 | Outpatient (BNVA) | payer MEDICARE, MEDICAID, SELFPAY | PROVIDERS: Visit Provider Urology | DX: R33.9 Retention of urine, unspecified (principal) | CPT/HCPCS: 51700; 51798 ==

== ENCOUNTER 2023-10-14 13:07 | Outpatient (AMB) | payer MEDICARE, MEDICAID, SELFPAY ==
--- NOTE | 2023-10-14 13:58 | A.OFFPC_ITS ---
Vital Signs 10/14/23 14:06 Height 5 ft 3 in Weight 105 lb BMI 18.6 BP 132/82 Blood Pressure Location Rt brachial Position Sitting Pulse 89 Pulse Source Pulse Oximeter Pulse Oximetry (%) 98 Oxygen Delivery Method Room Air Intake Visit Reasons: 6 month fu Intake Note: Pt is here today for his 6 mo. f/u: Allergies No Known Allergies Allergy (Verified 10/19/23 01:41) Medication List - Last Reconciled 10/19/23 by Argentina Pierre MD clotrimazole-betamethasone 1-0.05 % 1 appl topical BID 2 weeks Combivent Respimat 20-100 mcg/actuation (ipratropium-albuterol) 1 puff inhalation Q6H NS finasteride 5 mg PO DAILY 90 days lisinopril 5 mg PO DAILY tadalafil 20 mg PO ONCE PRN 30 days tamsulosin 0.4 mg PO BEDTIME 90 days Tobacco use date assessed: 10/14/23 Fall risk assessment: No Falls in past year Last assessed Fall Risk: 10/14/23 Dental Screening Dental Screen Date: 10/14/23 Did you have a dental visit in the last 12 months?: Yes Did you have a dental problem in the last 6 months where you did not have access to dental care?: No Was dental information given to patient?: Patient has dentist HPI 6 month fu HPI Details 83-year-old male with hypertension COPD and anemia, here today for follow-up. He has been taking regularly as directed. He continues to smoke cigarettes, with no desire to quit at present time, and refuses to get any vaccines. He states that he has been feeling well and needs refills of his medications. [facility] Medical History (Updated 10/14/23 @ 14:34 by Argentina Pierre MD) Anemia, iron deficiency Hypokalemia Vaccine refused by patient Refused pneumococcal vaccination COVID-19 vaccination refused Refused influenza vaccine Vitamin D deficiency Hx of gastritis Hearing impairment Normocytic normochromic anemia Benign prostatic hyperplasia with urinary retention Duodenitis Erosive gastritis with hemorrhage Hiatal hernia Productive cough Smokes with greater than 40 pack year history Intermittent lightheadedness Essential hypertension Insomnia disorder, with non-sleep disorder mental comorbidity Hx of syncope Surgical History No pertinent past surgical history Family History Father Parkinson's disease Social History Housing: Apartment Alcohol intake: former Patient Tobacco Use Status: Current everyday Tobacco user Tobacco use type: Cigarette Cigarette Packs Per Day: 0 Cigarettes Per Day: 10 e-Cigarette/Vaping Use: Never Used service: No Current occupational status: retired Cognitive needs: No Hearing needs: Yes Vision needs: Yes Questionnaire PHQ-9 Over the last 2 weeks, how often have you been bothered by any of the following problems? 1. Little interest or pleasure in doing things: several days 2. Feeling down, depressed, or hopeless: not at all 3. Trouble falling or staying asleep, or sleeping too much: not at all 4. Feeling tired or having little energy: not at all 5. Poor appetite or overeating: not at all 6. Feeling bad about yourself - or that you are a failure or have let yourself or your family down: several days 7. Trouble concentrating on things, such as reading the newspaper or watching television: several days 8. Moving or speaking so slowly that other people could have noticed. Or the opposite - being so fidgety or restless that you have been moving around a lot more than usual: not at all 9. Thoughts that you would be better off or of hurting yourself in some way: not at all Total score: 3 Depression Screening Interpretation: Negative Depression Screening Done: Yes 31071 - PHQ-9 Billing: Yes Source: Developed by Drs. Jose Jacques, Taisha Pritchard, Enrique Snow and colleagues, with an educational odalis from [employer]. Thrive Questionnaire Date Thrive assessed: 10/14/23 I am a: Patient What is your living situation today?: I have a steady place to live Within the past 12 months, did the food you bought not last and you didn't have the money to get more?: Never true Within the past 12 months, did you worry whether your food would run out before you got money to buy more?: Never true Do you have trouble paying for medicines?: No Do you have trouble getting transportation to medical appointments?: No Do you have trouble paying your heating and electricity bill?: No Do you have trouble taking care of your child, family member or friend?: No Do you have trouble with day-to-day activities such as bathing, preparing meals, shopping, managing finances, etc.?: No Are you currently unemployed and looking for a job?: No Are you interested in more education?: No THRIVE Score: 0 AUDIT C Alcohol Use Questionnaire (AUDIT-C) 1. How often do you have a drink containing alcohol?: Never Total Score: 0 OLMAN-7 AMB Questionnaire OLMAN-7 Date OLMAN - 7 assessed: 10/14/23 Feeling nervous, anxious, or on edge: 1 = Several days Not being able to stop or control worryin = Not at all Worrying too much about different things: 1 = Several days Trouble relaxin = Not at all Being so restless that it is hard to sit still: 0 = Not at all Becoming easily annoyed or irritable: 1 = Several days Feeling afraid as if something awful might happen: 0 = Not at all Total OLMAN-7 score (0-4 normal; 5-9 mild; 10-14 moderate; 15-21 severe): 3 Source: Developed by Drs. Jose Jacques, Taisha Pritchard, Enrique Snow and colleagues, with an educational odalis from [employer]. OLMAN-7 Assessment Billing OLMAN-7 Assessment Tool: OLMAN-7 Assessment 22442 Review of Systems Const Denies fever(s) and Denies weakness ENT Reports hearing loss, Denies nasal congestion, Denies post nasal drip, Denies sinus pain and Denies sinus pressure Card Denies chest pain, Denies pedal edema and Denies orthopnea Resp Denies excessive phlegm production and Reports wheezing (Occasional, needs a refill on his inhalers) GI Denies abdominal pain, Denies melena, Denies bloating, Denies hematochezia, Denies dyspepsia and Denies heartburn Details: no hematuria Musc Denies myalgias, Denies arthralgias and Denies joint swelling Neuro Denies weakness Psych Reports no additional complaints Arturo/Lymph Denies easy bruising Aller/Immun Denies seasonal rhinorrhea and Reports wheezing (Occasional, needs a refill on his inhalers) Physical exam (Primary Care) Vital Signs: Last Vital Signs Pulse 89 10/14/23 14:06 BP 132/82 10/14/23 14:06 Pulse Ox 98 10/14/23 14:06 Oxygen Delivery Method Room Air 10/14/23 14:06 BMI result Body Mass Index 18.6 Tobacco/Smoking Status: Tobacco use Status Tobacco use date assessed 10/14/23 10/14/23 14:00 Patient Tobacco Use Status Current everyday Tobacco 10/14/23 14:00 Tobacco use type Cigarette 10/14/23 14:00 e-Cigarette/Vaping Use Never Used 10/14/23 14:00 PHQ-9: PHQ-9 Score PHQ-9: Total score 4 10/14/23 14:36 Depression Screening Interpretation: Negative Thrive Assessment: Date of Thrive Assessment Date Thrive assessed 10/14/23 10/14/23 14:18 Const General: cooperative, comfortable and no acute distress Orientation/consciousness: patient oriented x3 (Walks unassisted) HENMT Ears: external ears normal General nose exam: Normal external nose present Mouth: oropharynx normal and moist mucous membranes Eyes General: appearance normal, both eyes and all related structures Conjunctivae: conjunctivae normal Pupils: Equal, round and reactive pupils present EOM: EOMs intact bilaterally Neck Neck: Yes full ROM, Yes no lymphadenopathy and Yes supple Resp Effort & Inspection: normal respiratory effort and able to speak in complete sentences Auscultation: clear to auscultation bilaterally Cardio Rate: regular rate Rhythm: regular rhythm Heart sounds: S1 normal heart sound present and S2 normal heart sound present GI Inspection: Yes normal to inspection Palpation (GI): Soft to palpation, nontender and no masses Auscultation: normal bowel sounds Neuro General: patient oriented x3 (Walks unassisted), gait normal, tone normal, moves all extremities, Normal light touch and pain sensation and no focal motor deficits Cranial nerves: Yes Equal, round and reactive pupils present Cognition (Neuro): normal cognition Gait exam (Neuro): Normal gait present Motor exam (neuro): 5/5 motor strength present throughout Extrem General: Yes full ROM, Yes no joint enlargement, Yes no pedal edema and Yes normal gait Results Reviewed Results Reviewed: Name: Florentin Tilley Age/Sex: 83/M : 1940 Unit#: [id number] Attend Dr: Diana Nelson MD Re09/29/23 Status: [facility]P [facility]: SPEC : [id number] CHAD: 09/29/23 STATUS: COMP REQ : [id number] RECD: 09/29/[address]: Megan Stokes NP COMP: 09/29/23 ENTERED: 09/29/[address]: Diana Nelson MD Physician,Unknown ORDERED: Lytes Test Result Flag Reference Sodium 140 135-145 mmol/L Potassium 3.0 L 3.3-5.1 mmol/L CL 103 96-108 mmol/L CO2 26 22-29 mmol/L Gap 14 - ansley: Florentin Tilley Age/Sex: 83/M : 1940 Unit#: [id number] Attend Dr: Herrera Roblero MD Re09/09/23 Status: [facility]P [facility]: SPEC : [id number] CHAD: 09/09/23 STATUS: COMP REQ : [id number] RECD: 09/09/[address]: Zeenat Bush MD COMP: 09/09/23 ENTERED: 09/09/[address]: Physician,Unknown ORDERED: CBC Auto Diff Test Result Flag Reference WBC 8.0 4.8-10.8 X10*3/uL RBC 3.11 L 4.60-5.80 X10*6/uL HGB 9.9 L 14.0-18.0 g/dl HCT 28.1 L 42.0-52.0 % MCV 90.4 80.0-98.0 fL MCH 31.8 27.0-33.0 pg MCHC 35.2 31.0-36.0 g/dl RDW 14.3 11.0-16.0 % PLT 164 160-400 X10*3/uL MPV 9.2 L 9.4-12.4 fL Neut Pct Auto 66.1 45-73 % ImGran Pct Auto 0.5 H 0.0-0.4 % Lymp Pct Auto 15.1 L 20-40 % [place] Pct Auto 5.4 2-11 % Eos Pct Auto 12.4 H 0-4 % Baso Pct Auto 0.5 0-2 % NRBC Pct Auto 0.0 0.0-0.2 /100WBC ANC Neut Abs # 5.3 2.0-8.3 x10*3/uL ImGran Abs Auto 0.04 H 0.00-0.03 X10*3/uL Lymph Abs Auto 1.2 1.2-4.9 X10*3/uL [place] Abs Auto 0.4 0.1-1.2 X10*3/uL Eos Abs Auto 1.0 H 0.0-0.4 X10*3/uL Baso Abs Auto 0.0 0.0-0.2 X10*3/uL NRBC Abs Auto 0.000 0.0-0.012 X10*3/uL Assessment and Plan Assessment & Plan (1) Hypokalemia: Code(s): E87.6 - Hypokalemia Plan: Reviewed latest lab results which showed presence of hypokalemia. Patient denies any weakness, leg cramping. Fasting basic metabolic panel ordered (2) Anemia, iron deficiency: Code(s): D50.9 - Iron deficiency anemia, unspecified Plan: Repeat another CBC, iron profile and vitamin B12 and vitamin-D level. (3) Vitamin D deficiency: Code(s): E55.9 - Vitamin D deficiency, unspecified Plan: Recheck vitamin-D level (4) Essential hypertension: Code(s): I10 - Essential (primary) hypertension Plan: Blood pressure at goal of less than 130/80. Continue with lisinopril 5 mg daily. Reinforced importance of following a low sodium diet, getting regular exercise, and lowering stress levels. Orders: Orders Basic Metabolic Panel 10/14/23 D50.9 - Iron deficiency anemia, unspecified, E87.6 - Hypokalemia IRON PROFILE 10/14/23 D50.9 - Iron deficiency anemia, unspecified, E87.6 - Hypokalemia Vitamin D 25-OH Total 10/14/23 E55.9 - Vitamin D deficiency, unspecified, R53.83 - Other fatigue Complete Blood Count Auto Diff 10/14/23 D50.9 - Iron deficiency anemia, unspecified, E87.6 - Hypokalemia Vitamin B12 and Folate 10/14/23 E55.9 - Vitamin D deficiency, unspecified, R53.83 - Other fatigue Coding Level of Care Code Est Pt Level 4 (30869) Diagnoses Hypokalemia E87.6 Anemia, iron deficiency D50.9 Vitamin D deficiency E55.9 Essential hypertension I10 Additional Codes OLMAN-7 Assessment Billing - OLMAN-7 Assessment Tool: OLMAN-7 Assessment 53942 ([id number])
[2023-10-14 14:06] VITALS: BP 132/82; PULSE 89; O2SAT 98; BMI 18.6
== END 2023-10-14 14:39 | disposition home or self-care (01) ==
PROVIDERS: Visit Provider Internal Medicine
DX: E87.6 Hypokalemia (principal); D50.9 Iron deficiency anemia, unspecified; E55.9 Vitamin D deficiency, unspecified; J44.9 Chronic obstructive pulmonary disease, unspecified; I10 Essential (primary) hypertension
CPT/HCPCS: 99214

== ENCOUNTER 2023-10-14 14:42 | Outpatient (REF) | payer MEDICARE, MEDICAID, SELFPAY ==
[2023-10-14 16:07] LABS: MANUAL DIFF FLAG NO
[2023-10-14 16:16] LABS: Basophils Absolute Auto 0.1 X10*3/uL (0.0-0.2); Basophils Percent Auto 1.1 % (0-2); Eosinophils Absolute Auto 0.6 X10*3/uL (0.0-0.4); Eosinophils Percent Auto 8.6 % (0-4); Hematocrit 29.5 % (42.0-52.0); Imm Gran Abs Auto 0.02 X10*3/uL (0.00-0.03); Imm Gran Pct Auto 0.3 % (0.0-0.4); Lymphocytes Absolute Auto 1.7 X10*3/uL (1.2-4.9); Lymphocytes Percent Auto 25.8 % (20-40); Mean Corpuscular HGB Conc 33.9 g/dl (31.0-36.0); Mean Corpuscular Hemoglobin 31.6 pg (27.0-33.0); Mean Corpuscular Volume 93.4 fL (80.0-98.0); Monocytes Absolute Auto 0.5 X10*3/uL (0.1-1.2); Monocytes Percent Auto 7.5 % (2-11); Neutrophils Absolute Auto 3.6 x10*3/uL (2.0-8.3); Neutrophils Percent Auto 56.7 % (45-73); Platelet Count 309 X10*3/uL (160-400); Red Blood Count 3.16 X10*6/uL (4.60-5.80); Red Cell Distribution Width 14.7 % (11.0-16.0); White Blood Count 6.4 X10*3/uL (4.8-10.8)
[2023-10-14 16:39] LABS: Anion Gap 14 (12-20); Blood Urea Nitrogen 20 mg/dL (9-16); Calcium 9.2 mg/dL (8.4-10.2); Carbon Dioxide 26 mmol/L (22-29); Chloride 104 mmol/L (96-108); Estimated Glomerular Filt Rate > 60; Glucose Random 90 mg/dL (60-115); Iron 36 mcg/dL (45-160); Percent Iron Saturation 12 % (15-50); Potassium 3.4 mmol/L (3.3-5.1); Sodium 141 mmol/L (135-145); Total Iron Binding Capacity 307 mcg/dL (228-428); Unsaturated Iron Binding 271 ug/dL
[2023-10-14 16:47] LABS: Vitamin D 25-OH Total 26.8 ng/mL (>30)
[2023-10-14 16:53] LABS: PSA,Total (Free>4and<10) 15.84 ng/mL (0.00-4.00)
[2023-10-14 17:02] LABS: Folate 10.4 ng/mL (> or = 4.0); Vitamin B12 631 pg/mL (200-900)
== END 2023-10-14 14:43 | disposition home or self-care (01) ==
LOC: HO.HMGCLDS 14:42
PROVIDERS: Urology; PCP Internal Medicine; Visit Provider Internal Medicine
DX: E55.9 Vitamin D deficiency, unspecified (principal); R53.83 Other fatigue; N40.1 Benign prostatic hyperplasia with lower urinary tract symptoms; R33.8 Other retention of urine; E87.6 Hypokalemia; D50.9 Iron deficiency anemia, unspecified; Z12.5 Encounter for screening for malignant neoplasm of prostate
CPT/HCPCS: 36415; 80048; 82306; 82607; 82746; 83540; 84153; 85025

== ENCOUNTER 2023-10-19 15:31 | Outpatient (AMB) | payer MEDICARE, MEDICAID, SELFPAY ==
--- NOTE | 2023-10-19 16:01 | MHC.OFFVIS ---
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 Ulloa for BPH. The patient was evaluated by me in the emergency room on 09/09/23 due to gross hematuria and urinary retention. At that time a Head catheter was not able to be inserted and flexible cystoscopy noted traumatic changes of the bulbous urethra. A percutaneous suprapubic tube was placed at that time. The patient is status post cystoscopy limited TURP, Head insertion and removal of percutaneous SP tube on 09/29/23. The patient was seen by nursing for voiding trial on 10/05/2023. The patient states he has been voiding well he denies any repeat episodes of dysuria or gross hematuria. Bladder scan PVR today is 98 mL, UA leuk 2+, blood 1+ On examination -abdomen-a gauze dressing was still taped to lower abdomen and was removed cystotomy site well healed. Plan: Monitor PVR Surveillance urine culture Follow-up in 4 months, renal ultrasound prior PFS Medical History Anemia, iron deficiency Hypokalemia Vaccine refused by patient Refused pneumococcal vaccination COVID-19 vaccination refused Refused influenza vaccine Vitamin D deficiency Hx of gastritis Hearing impairment Normocytic normochromic anemia Benign prostatic hyperplasia with urinary retention Duodenitis Erosive gastritis with hemorrhage Hiatal hernia Productive cough Smokes with greater than 40 pack year history Intermittent lightheadedness Essential hypertension Insomnia disorder, with non-sleep disorder mental comorbidity Hx of syncope Surgical History No pertinent past surgical history Family History Father Parkinson's disease Social History Housing: Apartment Alcohol intake: former Patient Tobacco Use Status: Current everyday Tobacco user Tobacco use type: Cigarette Cigarette Packs Per Day: 0 Cigarettes Per Day: 10 e-Cigarette/Vaping Use: Never Used service: No Current occupational status: retired Cognitive needs: No Hearing needs: Yes Vision needs: Yes Review of Systems Const All systems reviewed & are unremarkable except as noted in HPI and below Reports no additional complaints Eyes Reports no additional complaints ENT Reports no additional complaints Card Denies dyspnea Resp Denies cough and Denies dyspnea GI Reports no additional complaints Musc Reports no additional complaints Skin/Breast Denies rash and Denies unusual bruising Neuro Reports no additional complaints Psych Reports no additional complaints Endo Reports no additional complaints Arturo/Lymph Reports no additional complaints Aller/Immun Reports no additional complaints Physical Exam Const General: healthy appearing, no acute distress and well developed Orientation/consciousness: patient oriented x3 HEENT Head: Yes normocephalic and Yes atraumatic Eyes Conjunctivae: conjunctivae normal Neck Neck: Yes normal visual inspection Chest Chest palpation & inspection: normal inspection of the chest Resp Effort & Inspection: normal respiratory effort Cardio Rate: regular rate GI Inspection: Yes normal to inspection Palpation (GI): Soft to palpation Other: Dressing removed from old SP tube site. No signs of infection. Cystotomy site well healed Skin General skin exam: no rashes or lesions noted Neuro General: patient oriented x3 Psych Appearance: grossly normal Affect: normal affect Office Procedures Post Void Residual Post Residual Void Post Void Residual (PVR): 98 [id number] Void Residual by ultrasound Results AMB Urinalysis, Automated UA Leukoctes 500 Osorio/uL Last Edit by Becky Ayala CMA on 10/19/23 16:05 UA Nitrite Negative Last Edit by Becky Ayala CMA on 10/19/23 16:05 UA Urobilinogen 0.2 mg/dL Last Edit by [facility], [facility] on 10/19/23 16:05 UA Protein 30 mg/dL Last Edit by [facility], [facility] on 10/19/23 16:05 UA pH 7.0 Last Edit by [facility], [facility] on 10/19/23 16:05 UA Blood 200 Sheldon/uL Last Edit by [facility], [facility] on 10/19/23 16:05 UA Specific [place] 1.010 Last Edit by [facility], [facility] on 10/19/23 16:05 UA Ketone Negative Last Edit by [facility], [facility] on 10/19/23 16:05 UA Bilirubin 0 mg/dL Last Edit by [facility], [facility] on 10/19/23 16:05 UA Glucose 0 mg/dL Last Edit by [facility], [facility] on 10/19/23 16:05 Results Reviewed Results Reviewed: Laboratory Last Values Urine pH (Auto) 7.0 10/19/23 16:03 Specific [place] (Auto) 1.010 10/19/23 16:03 Urine Protein (Auto) 30 mg/dL 10/19/23 16:03 Glucose (UA)(Auto) 0 mg/dL 10/19/23 16:03 Urine Ketones (Auto) Negative 10/19/23 16:03 Urine Blood (Auto) 200 Sheldon/uL 10/19/23 16:03 Urine Nitrite (Auto) Negative 10/19/23 16:03 Urine Bilirubin (Auto) 0 mg/dL 10/19/23 16:03 Urine Urobilinogen (Auto) 0.2 mg/dL 10/19/23 16:03 Leukocyte Esterase (Auto) 500 Osorio/uL 10/19/23 16:03 Collected: 09/29/23 Location: [facility] Received: 09/29/23 Diagnosis Prostate, Transurethral resection: 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 Assessment & Plan Assessment & Plan (1) BPH loc w urin obs/LUTS: Code(s): N40.1 - Benign prostatic hyperplasia with lower urinary tract symptoms (2) Urinary retention: Code(s): R33.9 - Retention of urine, unspecified Plan Monitor PVR cont proscar, tamsulosin Surveillance urine culture Follow-up in 4 months, renal ultrasound prior Orders: Orders AMB Post Void Residual by ultrasound 10/19/23 R33.9 - Retention of urine, unspecified Urine Culture Today N39.0 - Urinary tract infection, site not specified US renal BI Today R33.9 - Retention of urine, unspecified AMB Urinalysis Automated 10/19/23 R33.9 - Retention of urine, unspecified Patient Instructions: The patient had an opportunity to ask questions regarding treatment plan. All questions were answered. Laboratory studies and physical exam results were discussed and reviewed in detail. No major barriers to understanding were identified. The patient expressed understanding and agreement with the above treatment plan. The patient is aware they should contact our office by phone for worsening of their current condition or the appearance of new symptoms. Compliance is encouraged with any medications and followup testing that is ordered. It is a privilege to be allowed the opportunity to participate in the urologic care of your patient. If you have any questions or concerns regarding treatment for the above conditions please do not hesitate to contact me. The office telephone contact is [phone]. This note is constructed in part using voice recognition software. While every effort has been made to ensure accuracy lathe machine operator errors may have been included. Yours sincerely, Diana Nelson MD Coding Level of Care Code Global (57510) Diagnoses BPH loc w urin obs/LUTS N40.1 Urinary retention R33.9 CPT Codes Post Residual Void - PVR CPT Code: 21809-Sdjh Void Residual by ultrasound ([id number])
== END 2023-10-19 16:30 | disposition home or self-care (01) ==
PROVIDERS: PCP Internal Medicine; Visit Provider Urology
DX: R33.9 Retention of urine, unspecified (principal)
CPT/HCPCS: 99024

== ENCOUNTER 2023-10-19 15:31 | Outpatient (REF) | payer MEDICARE, MEDICAID, SELFPAY | END 2023-10-19 15:32 | disposition home or self-care (01) | LOC: HO.LAB 15:31 | PROVIDERS: PCP Internal Medicine; Visit Provider Urology | DX: N40.1 Benign prostatic hyperplasia with lower urinary tract symptoms (principal); R33.9 Retention of urine, unspecified; Z48.816 Encounter for surgical aftercare following surgery on the genitourinary system; Z79.899 Other long term (current) drug therapy; Z98.890 Other specified postprocedural states | CPT/HCPCS: 51798; 81003; 99212 ==

== ENCOUNTER 2023-10-20 09:32 | Outpatient (REF) | payer MEDICARE, MEDICAID, SELFPAY | END 2023-10-20 09:33 | disposition home or self-care (01) | LOC: HO.LAB 09:32 | PROVIDERS: PCP Internal Medicine; Visit Provider Urology | DX: N39.0 Urinary tract infection, site not specified (principal) | CPT/HCPCS: 87086; 87088 ==

== ENCOUNTER 2024-01-21 08:56 | Outpatient (AMB) | payer MEDICARE, MEDICAID, SELFPAY ==
[2024-01-21 09:08] VITALS: BP 140/80; PULSE 84; O2SAT 98
--- NOTE | 2024-01-21 09:08 | MHC.PC.OV ---
Vital Signs 01/21/24 09:08 Weight 101 lb 8 oz BP 140/80 H Blood Pressure Location Rt brachial Position Sitting Pulse 84 Pulse Source Pulse Oximeter Pulse Oximetry (%) 98 Oxygen Delivery Method Room Air Intake Visit Reasons: Sleep apnea Intake Note: Patient here to discuss a pain that he gets in the lower back part of his head and has been falling/passing out as he gets dizzy. he would also like to talk about not being able to sleep. Allergies No Known Allergies Allergy (Verified 01/21/24 10:23) Medication List - Last Reconciled 01/21/24 by Argentina Pierre MD clotrimazole-betamethasone 1-0.05 % 1 appl topical BID 2 weeks Combivent Respimat 20-100 mcg/actuation (ipratropium-albuterol) 1 puff inhalation Q6H NS finasteride 5 mg PO DAILY 90 days fluconazole 150 mg PO DAILY 3 days lisinopril 5 mg PO DAILY tadalafil 20 mg PO ONCE PRN 30 days tamsulosin 0.4 mg PO BEDTIME 90 days trazodone 25 mg (1/2 x 50 mg) PO BEDTIME PRN Tobacco use date assessed: 01/21/24 Fall risk assessment: No Falls in past year Last assessed Fall Risk: 01/21/24 Dental Screening Dental Screen Date: 01/21/24 Did you have a dental visit in the last 12 months?: No Did you have a dental problem in the last 6 months where you did not have access to dental care?: No Was dental information given to patient?: No HPI Sleep apnea HPI Details 83-year-old male here today complaining of having occasional difficulty with initiating and maintaining sleep. This has been present now for the last several weeks. He also has been having intermittent episodes of lightheadedness and near syncopal attacks. This has been present now for the last several days. Denies any accompanying chest pain, no nausea, no vomiting, no GI or urinary complaints. [facility] Medical History (Updated 01/21/24 @ 10:46 by Argentina Pierre MD) Hx of syncope Anemia, iron deficiency Hypokalemia Vaccine refused by patient Refused pneumococcal vaccination COVID-19 vaccination refused Refused influenza vaccine Vitamin D deficiency Hx of gastritis Hearing impairment Normocytic normochromic anemia Benign prostatic hyperplasia with urinary retention Duodenitis Erosive gastritis with hemorrhage Hiatal hernia Productive cough Smokes with greater than 40 pack year history Intermittent lightheadedness Essential hypertension Insomnia disorder, with non-sleep disorder mental comorbidity Surgical History No pertinent past surgical history Family History Father Parkinson's disease Social History Housing: Apartment Alcohol intake: former Patient Tobacco Use Status: Current everyday Tobacco user Tobacco use type: Cigarette Cigarette Packs Per Day: 0 Cigarettes Per Day: 10 e-Cigarette/Vaping Use: Never Used service: No Current occupational status: retired Cognitive needs: No Hearing needs: Yes Vision needs: Yes Questionnaire Thrive Questionnaire Date Thrive assessed: 10/14/23 AUDIT C Alcohol Use Questionnaire (AUDIT-C) 1. How often do you have a drink containing alcohol?: Never 3. How often do you have six or more drinks on one occasion?: Never Total Score: 0 Score Reviewed/Action Taken: Yes OLMAN-7 AMB Questionnaire OLMAN-7 Date OLMAN - 7 assessed: 10/14/23 Source: Developed by Drs. Jose Jacques, Taisha Pritchard, Enrique Snow and colleagues, with an educational odalis from [employer]. Review of Systems Const Reports no additional complaints Eyes Reports no additional complaints ENT Reports no additional complaints Card Denies dyspnea Resp Denies cough and Denies dyspnea GI Reports no additional complaints Reports no additional complaints and Denies hematuria Musc Reports no additional complaints Skin/Breast Denies rash and Denies unusual bruising Neuro Reports no additional complaints Psych Reports no additional complaints Endo Reports no additional complaints Arturo/Lymph Reports no additional complaints Aller/Immun Reports no additional complaints Physical exam (Primary Care) Vital Signs: Last Vital Signs Pulse 84 01/21/24 09:08 BP 140/80 H 01/21/24 09:08 Pulse Ox 98 01/21/24 09:08 Oxygen Delivery Method Room Air 01/21/24 09:08 Tobacco/Smoking Status: Tobacco use Status Tobacco use date assessed 01/21/24 01/21/24 09:10 Patient Tobacco Use Status Current everyday Tobacco 01/21/24 09:10 Tobacco use type Cigarette 01/21/24 09:10 e-Cigarette/Vaping Use Never Used 01/21/24 09:10 Thrive Assessment: Date of Thrive Assessment Date Thrive assessed 10/14/23 01/21/24 09:10 Const General: cooperative, comfortable and no acute distress Orientation/consciousness: patient oriented x3 (Walks unassisted) HENMT Ears: external ears normal General nose exam: Normal external nose present Mouth: oropharynx normal and moist mucous membranes Eyes General: appearance normal, both eyes and all related structures Conjunctivae: conjunctivae normal Pupils: Equal, round and reactive pupils present EOM: EOMs intact bilaterally Neck Neck: Yes full ROM, Yes no lymphadenopathy and Yes supple Resp Effort & Inspection: normal respiratory effort and able to speak in complete sentences Auscultation: clear to auscultation bilaterally Cardio Rate: regular rate Rhythm: regular rhythm Heart sounds: S1 normal heart sound present and S2 normal heart sound present GI Inspection: Yes normal to inspection Palpation (GI): Soft to palpation, nontender and no masses Auscultation: normal bowel sounds Skin General skin exam: no rashes or lesions noted Neuro General: patient oriented x3 (Walks unassisted), gait normal, tone normal, moves all extremities, Normal light touch and pain sensation and no focal motor deficits Cranial nerves: Yes Equal, round and reactive pupils present Cognition (Neuro): normal cognition Gait exam (Neuro): Normal gait present Motor exam (neuro): 5/5 motor strength present throughout Extrem General: Yes full ROM, Yes no joint enlargement, Yes no pedal edema and Yes normal gait Results Reviewed Results Reviewed: ansley: Florentin Tilley Age/Sex: 83/M : 1940 Unit#: [id number] Attend Dr: Argentina Pierre MD Re10/14/23 Status: DEP [facility] Disch: SPEC : [id number] CHAD: 10/14/23 STATUS: COMP REQ : [id number] RECD: 10/14/[address]: Argentina Pierre MD COMP: 10/14/23 ENTERED: 10/14/[address]: ORDERED: CBC Auto Diff Test Result Flag Reference WBC 6.4 4.8-10.8 X10*3/uL RBC 3.16 L 4.60-5.80 X10*6/uL HGB 10.0 L 14.0-18.0 g/dl HCT 29.5 L 42.0-52.0 % MCV 93.4 80.0-98.0 fL MCH 31.6 27.0-33.0 pg MCHC 33.9 31.0-36.0 g/dl RDW 14.7 11.0-16.0 % PLT 309 # 160-400 X10*3/uL MPV 10.0 9.4-12.4 fL Neut Pct Auto 56.7 45-73 % ImGran Pct Auto 0.3 0.0-0.4 % Lymp Pct Auto 25.8 20-40 % Butts Pct Auto 7.5 2-11 % Eos Pct Auto 8.6 H 0-4 % Baso Pct Auto 1.1 0-2 % NRBC Pct Auto 0.0 0.0-0.2 /100WBC ANC Neut Abs # 3.6 2.0-8.3 x10*3/uL ImGran Abs Auto 0.02 0.00-0.03 X10*3/uL Lymph Abs Auto 1.7 1.2-4.9 X10*3/uL Butts Abs Auto 0.5 0.1-1.2 X10*3/uL Eos Abs Auto 0.6 H 0.0-0.4 X10*3/uL Baso Abs Auto 0.1 0.0-0.2 X10*3/uL NRBC Abs Auto 0.000 0.0-0.012 X10*3/uL Name: Florentin Tilley Age/Sex: 83/M : 1940 Unit#: [id number] Attend Dr: Argentina Pierre MD Re10/14/23 Status: DEP [facility]F [facility] Disch: SPEC : [id number] CHAD: 10/14/23 STATUS: COMP REQ : [id number] RECD: 10/14/[address]: Argentina Pierre MD COMP: 10/14/23 ENTERED: 10/14/[address] [facility] DR: ORDERED: BMP, IRON PROF, Vitamin D 25-OH Test Result Flag Reference Sodium 141 135-145 mmol/L Potassium 3.4 3.3-5.1 mmol/L CL 104 96-108 mmol/L CO2 26 22-29 mmol/L Gap 14 12-20 BUN 20 H 9-16 mg/dL Creat 0.83 0.5-1.4 mg/dL EGFR > 60 NOTE: For -[place] individuals, multiply the result by 1.210. Chronic Kidney Disease: Estimated GFR < 60 mL/min/1.73m2 Severe Kidney Disease: Estimated GFR < 15 mL/min/1.73m2 Glucose, Random 90 60-115 mg/dL CA 9.2 # 8.4-10.2 mg/dL Iron 36 L 45-160 mcg/dL TIBC 307 228-428 mcg/dL Saturation 12 L 15-50 % UIBC 271 ug/dL Vit D 25-OH Tot 26.8 L >30 ng/mL Health Based Reference Values* < 20 ng/mL Deficient 20-30 ng/mL Insufficient > 30 ng/mL Sufficient Assessment and Plan Assessment & Plan (1) Hx of syncope: Code(s): Z87.898 - Personal history of other specified conditions Plan: Ordered CBC, iron profile, basic metabolic panel, and ultrasound of both carotid artery. EKG done today showed normal sinus rhythm with no acute ST-T changes seen (2) Insomnia disorder, with non-sleep disorder mental comorbidity: Code(s): G47.00 - Insomnia, unspecified Plan: Prescribed trazodone 25 mg per tablet to take 1 tablet at bedtime as needed for difficulty sleeping. (3) Anemia, iron deficiency: Code(s): D50.9 - Iron deficiency anemia, unspecified Plan: CBC and iron profile ordered Orders: Orders Complete Blood Count Auto Diff 01/21/24 D50.9 - Iron deficiency anemia, unspecified, Z87.898 - Personal history of other specified conditions AMB EKG-In Office 01/21/24 D50.9 - Iron deficiency anemia, unspecified, Z87.898 - Personal history of other specified conditions IRON PROFILE 01/21/24 D50.9 - Iron deficiency anemia, unspecified US carotid duplex BI 01/21/24 D50.9 - Iron deficiency anemia, unspecified, Z87.898 - Personal history of other specified conditions Basic Metabolic Panel 01/21/24 D50.9 - Iron deficiency anemia, unspecified, Z87.898 - Personal history of other specified conditions Coding Level of Care Code Est Pt Level 4 (50214) Diagnoses Hx of syncope Z87.898 Insomnia disorder, with non-sleep disorder mental comorbidity G47.00 Anemia, iron deficiency D50.9
== END 2024-01-21 11:53 | disposition home or self-care (01) ==
PROVIDERS: PCP Internal Medicine; Visit Provider Internal Medicine
DX: Z87.898 Personal history of other specified conditions (principal); G47.00 Insomnia, unspecified; D50.9 Iron deficiency anemia, unspecified
CPT/HCPCS: 99214

== ENCOUNTER 2024-01-21 10:46 | Outpatient (REF) | payer MEDICARE, MEDICAID, SELFPAY ==
[2024-01-21 13:40] LABS: MANUAL DIFF FLAG NO
[2024-01-21 13:46] LABS: Basophils Percent Auto 0.5 % (0-2); Eosinophils Absolute Auto 0.8 X10*3/uL (0.0-0.4); Eosinophils Percent Auto 12.8 % (0-4); Hematocrit 33.4 % (42.0-52.0); Hemoglobin 11.4 g/dl (14.0-18.0); Imm Gran Abs Auto 0.01 X10*3/uL (0.00-0.03); Imm Gran Pct Auto 0.2 % (0.0-0.4); Lymphocytes Absolute Auto 1.6 X10*3/uL (1.2-4.9); Lymphocytes Percent Auto 27.4 % (20-40); Mean Corpuscular HGB Conc 34.1 g/dl (31.0-36.0); Mean Corpuscular Hemoglobin 30.6 pg (27.0-33.0); Mean Corpuscular Volume 89.8 fL (80.0-98.0); Mean Platelet Volume 11.4 fL (9.4-12.4); Monocytes Absolute Auto 0.5 X10*3/uL (0.1-1.2); Monocytes Percent Auto 9.2 % (2-11); Neutrophils Absolute Auto 2.9 x10*3/uL (2.0-8.3); Neutrophils Percent Auto 49.9 % (45-73); Platelet Count 190 X10*3/uL (160-400); Red Blood Count 3.72 X10*6/uL (4.60-5.80); Red Cell Distribution Width 14.6 % (11.0-16.0); White Blood Count 5.9 X10*3/uL (4.8-10.8)
[2024-01-21 14:09] LABS: Anion Gap 16 (12-20); Blood Urea Nitrogen 24 mg/dL (9-16); Calcium 9.9 mg/dL (8.4-10.2); Carbon Dioxide 23 mmol/L (22-29); Chloride 103 mmol/L (96-108); Estimated Glomerular Filt Rate > 60; Glucose Random 81 mg/dL (60-115); Iron 40 mcg/dL (45-160); Percent Iron Saturation 11 % (15-50); Sodium 138 mmol/L (135-145); Total Iron Binding Capacity 365 mcg/dL (228-428); Unsaturated Iron Binding 325 ug/dL
== END 2024-01-21 10:47 | disposition home or self-care (01) ==
LOC: HO.HMGCLDS 10:46
PROVIDERS: PCP Internal Medicine; Visit Provider Internal Medicine
DX: D50.9 Iron deficiency anemia, unspecified (principal); Z87.898 Personal history of other specified conditions
CPT/HCPCS: 36415; 80048; 83540; 85025

== ENCOUNTER 2024-02-16 08:42 | Outpatient (REF) | payer MEDICARE, MEDICAID, SELFPAY ==
--- NOTE | ~2024-02-16 | US_ITS ---
EXAMINATION: US EXTRACRANIAL CAROTID DUPLEX, BILATERAL CLINICAL INFORMATION: Syncope COMPARISON: None available. TECHNIQUE: Real-time ultrasound and Doppler techniques (integrating B-mode 2-D vascular images, Doppler spectral analysis and color-flow Doppler imaging) were utilized to interrogate the extracranial carotid arteries, the vertebral arteries and proximal subclavian arteries bilaterally. The degree of stenosis is determined by criteria similar to NASCET. FINDINGS: Right Side: 1. There is no atherosclerotic plaque seen in the bifurcation/proximal ICA region. 2. The common carotid artery PSV proximally is 50 cm/s and distally 52 cm/s. 3. The proximal internal carotid artery velocities are 50 cm/s systolic and 15 cm/s diastolic. 4. The proximal external carotid artery PSV is 72 cm/s. 5. The vertebral artery shows antegrade flow. 6. The subclavian artery waveforms are normal. Left Side: 1. There is mild atherosclerotic plaque seen in the bifurcation/proximal ICA region. 2. The common carotid artery PSV proximally is 57 cm/s and distally 51 cm/s. 3. The proximal internal carotid artery velocities are 50 cm/s systolic and 11 cm/s diastolic. 4. The proximal external carotid artery PSV is 82 cm/s. 5. The vertebral artery shows antegrade flow. 6. The subclavian artery waveforms are normal. US/US carotid duplex BI IMPRESSION: 1. RIGHT: Normal right internal carotid artery without atherosclerotic plaque or hemodynamically significant stenosis. 2. LEFT: Minimal, non-hemodynamically significant stenosis of the proximal left internal carotid artery corresponding to a 0-49% stenosis by velocity criteria.
--- NOTE | ~2024-02-16 | US_ITS ---
EXAMINATION: US RETROPERITONEAL LIMITED (RENAL ONLY) CLINICAL INFORMATION: Retention of urine, unspecified. COMPARISON: CT abdomen and pelvis 02/23/2011. Abdominal ultrasound 07/05/2007. TECHNIQUE: Real-time imaging of the kidneys. FINDINGS: RIGHT KIDNEY: 9.9 x 3.7 x 5.3 cm (SAG x AP x TRV). The kidney is normal in size, contour, and echogenicity. Renal cortical thickness is normal. No calculi or focal parenchymal lesions. No hydronephrosis. LEFT KIDNEY: 9.8 x 5.1 x 5.6 cm (SAG x AP x TRV). The kidney is normal in size, contour, and echogenicity. Renal cortical thickness is normal. No renal calculi or hydronephrosis. 0.9 x 0.7 x 0.9 cm simple exophytic cyst is seen in the lateral mid kidney, no imaging follow-up is recommended. US/US renal BI IMPRESSION: 1. Normal appearance of the right kidney. 2. 0.9 cm simple exophytic cyst in the lateral mid left kidney, no imaging follow-up is recommended.
== END 2024-02-16 08:43 | disposition home or self-care (01) ==
LOC: HO.HMGCX 08:42
PROVIDERS: Absent Provider Urology; PCP Internal Medicine; Visit Provider Internal Medicine
DX: R33.9 Retention of urine, unspecified (principal); D50.9 Iron deficiency anemia, unspecified; I65.22 Occlusion and stenosis of left carotid artery; Z87.898 Personal history of other specified conditions
CPT/HCPCS: 76775; 93880

== ENCOUNTER 2024-05-19 08:38 | Outpatient (AMB) | payer MEDICARE, MEDICAID, SELFPAY ==
--- NOTE | 2024-05-19 08:47 | A.OFFVIS_ITS ---
Intake Visit Reasons: follow up/US/PVR(US 02/15) Intake Note: Patient presents today for a US/PVR follow-up Meds- Finasteride, Tadalafil, Tamsulosin Allergies to Antibiotic- No Known Allergies Blood Thinner- None Post Void Residual: 98 TODAY'S PVR: Pipe Out Worker Required: Yes Accompanied by: Self / Same As Patient Allergies No Known Allergies Allergy (Verified 05/19/24 08:48) Medication List - Last Reconciled 05/19/24 by Diana Nelson MD clotrimazole-betamethasone 1-0.05 % 1 appl topical BID 2 weeks Combivent Respimat 20-100 mcg/actuation (ipratropium-albuterol) 1 puff inhalation Q6H NS ferrous sulfate 325 mg PO DAILY finasteride 5 mg PO DAILY 90 days fluconazole 150 mg PO DAILY 3 days lisinopril 5 mg PO DAILY tadalafil 20 mg PO ONCE PRN 30 days trazodone 25 mg (1/2 x 50 mg) PO BEDTIME PRN HPI Comments Details: 05/19/24--s/p TURP on 09/29/23 for urinary retention. Florentin states he is doing well. Will cont proscar 5 mg daily. DC tamsulosin. Reviewed and discussed renal US 02/16/24- within normal limits. Review of chart: 10/19/2023--Florentin is an 83-year-old male who has been followed by Dr. Ulloa for BPH. The patient was evaluated by me in the emergency room on 09/09/23 due to gross hematuria and urinary retention. At that time a Castrejon catheter was not able to be inserted and flexible cystoscopy noted traumatic changes of the bulbous urethra. A percutaneous suprapubic tube was placed at that time. The patient is status post cystoscopy limited TURP, Castrejon insertion and removal of percutaneous SP tube on 09/29/23. The patient was seen by nursing for voiding trial on 10/05/2023. The patient states he has been voiding well he denies any repeat episodes of dysuria or gross hematuria. Bladder scan PVR today is 98 mL, UA leuk 2+, blood 1+ On examination -abdomen-a gauze dressing was still taped to lower abdomen and was removed cystotomy site well healed. Plan: Monitor PVR Surveillance urine culture Follow-up in 4 months, renal ultrasound prior [facility] Medical History (Reviewed 05/19/24 @ 09: by Diana Nelson MD) Hx of syncope Anemia, iron deficiency Hypokalemia Vaccine refused by patient Refused pneumococcal vaccination COVID-19 vaccination refused Refused influenza vaccine Vitamin D deficiency Hx of gastritis Hearing impairment Normocytic normochromic anemia Benign prostatic hyperplasia with urinary retention Duodenitis Erosive gastritis with hemorrhage Hiatal hernia Productive cough Smokes with greater than 40 pack year history Intermittent lightheadedness Essential hypertension Insomnia disorder, with non-sleep disorder mental comorbidity Surgical History No pertinent past surgical history Family History (Reviewed 05/19/24 @ : by Diana Nelson MD) Father Parkinson's disease Social History Housing: Apartment Alcohol intake: former Patient Tobacco Use Status: Current everyday Tobacco user Tobacco use type: Cigarette Cigarette Packs Per Day: 0 Cigarettes Per Day: 10 e-Cigarette/Vaping Use: Never Used service: No Current occupational status: retired Cognitive needs: No Hearing needs: Yes Vision needs: Yes Review of Systems Const All systems reviewed & are unremarkable except as noted in HPI and below Reports no additional complaints Eyes Reports no additional complaints ENT Reports no additional complaints Card Reports no additional complaints Resp Reports no additional complaints GI Reports no additional complaints Reports as per HPI Musc Reports no additional complaints Skin/Breast Reports system reviewed and no additional complaints, except as documented Neuro Reports no additional complaints Psych Reports no additional complaints Endo Reports no additional complaints Arturo/Lymph Reports no additional complaints Aller/Immun Reports no additional complaints Results AMB Urinalysis, Automated UA Leukoctes 15 Osorio/uL Last Edit by NADER Landeros on 05/19/24 09:00 UA Nitrite Negative Last Edit by NADER Landeros on 05/19/24 09:00 UA Urobilinogen 0.2 mg/dL Last Edit by NADER Landeros on 05/19/24 09:0 0 UA Protein 30 mg/dL Last Edit by NADER Landeros on 05/19/24 09:00 UA pH 6.0 Last Edit by NADER Landeros on 05/19/24 09:00 UA Blood 0 Sheldon/uL Last Edit by NADER Landeros on 05/19/24 09:00 UA Specific [place] 1.025 Last Edit by NADER Landeros on 05/19/24 09: 00 UA Ketone Negative Last Edit by NADER Landeros on 05/19/24 09:00 UA Bilirubin 0 mg/dL Last Edit by NADER Landeros on 05/19/24 09:00 UA Glucose 0 mg/dL Last Edit by NADER Landeros on 05/19/24 09:00 Results Reviewed Results Reviewed: Laboratory Last Values Urine pH (Auto) 6.0 05/19/24 08:59 Specific [place] (Auto) 1.025 05/19/24 08:59 Urine Protein (Auto) 30 mg/dL 05/19/24 08:59 Glucose (UA)(Auto) 0 mg/dL 05/19/24 08:59 Urine Ketones (Auto) Negative 05/19/24 08:59 Urine Blood (Auto) 0 Sheldon/uL 05/19/24 08:59 Urine Nitrite (Auto) Negative 05/19/24 08:59 Urine Bilirubin (Auto) 0 mg/dL 05/19/24 08:59 Urine Urobilinogen (Auto) 0.2 mg/dL 05/19/24 08:59 Leukocyte Esterase (Auto) 15 Osorio/uL 05/19/24 08:59 Date of Service: 02/16/24 US RETROPERITONEAL LIMITED (RENAL ONLY) CLINICAL INFORMATION: Retention of urine, unspecified. COMPARISON: CT abdomen and pelvis 02/23/2011. Abdominal ultrasound 07/05/2007. TECHNIQUE: Real-time imaging of the kidneys. FINDINGS: RIGHT KIDNEY: 9.9 x 3.7 x 5.3 cm (SAG x AP x TRV). The kidney is normal in size, contour, and echogenicity. Renal cortical thickness is normal. No calculi or focal parenchymal lesions. No hydronephrosis. LEFT KIDNEY: 9.8 x 5.1 x 5.6 cm (SAG x AP x TRV). The kidney is normal in size, contour, and echogenicity. Renal cortical thickness is normal. No renal calculi or hydronephrosis. 0.9 x 0.7 x 0.9 cm simple exophytic cyst is seen in the lateral mid kidney, no imaging follow-up is recommended. IMPRESSION: 1. Normal appearance of the right kidney. 2. 0.9 cm simple exophytic cyst in the lateral mid left kidney, no imaging follow-up is recommended. 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 Assessment & Plan Assessment & Plan (1) BPH loc w urin obs/LUTS: Code(s): N40.1 - Benign prostatic hyperplasia with lower urinary tract symptoms Category: Medical (2) Urinary retention: Code(s): R33.9 - Retention of urine, unspecified Category: Medical Plan Urination retention s/p TURP 09/29/23 doing well. Cont tom vaz tamsulosin Orders: Orders AMB Urinalysis Automated Today Z13.9 - Encounter for screening, unspecified Medications: Refilled finasteride 5 mg PO DAILY 90 days 90 tabs 3RF N40.1 - Benign prostatic hyperplasia with lower urinary tract symptoms, R33.8 - Other retention of urine Discontinued tamsulosin Discontinued Reason: Doctor's Order 0.4 mg PO BEDTIME 90 days 90 caps 3RF N40.1 - Benign prostatic hyperplasia with lower urinary tract symptoms, R33.8 - Other retention of urine Patient Instructions: The patient had an opportunity to ask questions regarding treatment plan. The patient expressed understanding and agreement with the above treatment plan. The patient is aware they should contact our office by phone for worsening of their current condition or the appearance of new symptoms. Compliance is encouraged with any medications and followup testing that is ordered. It is a privilege to be allowed the opportunity to participate in the urologic care of your patient. If you have any questions or concerns regarding treatment for the above conditions please do not hesitate to contact me. The office telephone contact is [phone]. This note is constructed in part using voice recognition software. While every effort has been made to ensure accuracy curriculum manager errors may have been included. Yours sincerely, Diana Nelson MD Coding Level of Care Code Est Pt Level 4 (35498) Diagnoses BPH loc w urin obs/LUTS N40.1 Urinary retention R33.9
== END 2024-05-19 09:19 | disposition home or self-care (01) ==
LOC: HO.HUSH 08:38
PROVIDERS: PCP Internal Medicine; Visit Provider Urology
DX: N40.1 Benign prostatic hyperplasia with lower urinary tract symptoms (principal); R33.9 Retention of urine, unspecified; Z13.9 Encounter for screening, unspecified
CPT/HCPCS: 99214

== ENCOUNTER → 2024-05-19 08:38 | Outpatient (BNVA) | payer MEDICARE, MEDICAID, SELFPAY | PROVIDERS: PCP Internal Medicine; Visit Provider Urology | DX: N40.1 Benign prostatic hyperplasia with lower urinary tract symptoms (principal); R33.8 Other retention of urine; Z79.899 Other long term (current) drug therapy | CPT/HCPCS: 81003; 99212 ==

== ENCOUNTER 2024-11-24 15:43 | Outpatient (AMB) | payer MEDICARE, MEDICAID, SELFPAY ==
--- NOTE | 2024-11-24 15:46 | MHC.OFFVIS ---
Intake Visit Reasons: 4m/PVR Intake Note: Patient presents today for a 4 month follow up/PVR Urology Meds: Finasteride, Tadalafil Allergies to Antibiotic:none Blood Thinner:none PVR:67ml Senior Publications Specialist Required: Yes Accompanied by: Self / Same As Patient Allergies No Known Allergies Allergy (Verified 11/24/24 15:48) HPI Comments Details: 11/24/24-- History of Present Illness The patient is an 84-year-old male presenting with follow-up for BPH management. He had a transurethral resection of the prostate on September 29, 2023, after which tamsulosin was discontinued, and he continued on finasteride. His condition has remained stable with this regimen. Today's visit noted the emergence of proteinuria, which is new for the patient. He has no history of similar findings and reports being medication-free aside from the current treatment for BPH. Urinary Symptoms Review - No current urinary symptoms reported. - Continues on finasteride for BPH management. - Previous treatment with tamsulosin was discontinued without issues. Review of Systems - Genitourinary: Reports protein in urine. Denies current urinary frequency, urgency, incontinence, or dysuria. - General: Denies feeling unwell or having concurrent health issues. Const All systems reviewed & are unremarkable except as noted in HPI and below Reports no additional complaints Eyes Reports no additional complaints ENT Reports no additional complaints Card Reports no additional complaints Resp Reports no additional complaints GI Reports no additional complaints Reports as per HPI Musc Reports no additional complaints Skin/Breast Reports system reviewed and no additional complaints, except as documented Neuro Reports no additional complaints Psych Reports no additional complaints Endo Reports no additional complaints Arturo/Lymph Reports no additional complaints Aller/Immun Reports no additional complaints Physical Exam General: Healthy appearing, no acute distress and well developed Orientation and consciousness: Patient oriented x3 Head: Yes normocephalic and Yes atraumatic Eyes: Conjunctivae normal Neck: Yes normal visual inspection Chest: Normal inspection of the chest Respiratory: Normal respiratory effort GI: Normal to inspection : Extremities: Skin: Neurology: Patient oriented x3 Psych: Appearance grossly normal. Normal affect Results - Labs: Urinalysis notable for protein. Blood negative. Plan Current management of BPH with finasteride will be maintained. The newly observed proteinuria requires a specialized nephrology evaluation to rule out potential kidney-related issues. No immediate adjustments to the treatment plan are necessary, but this will be revisited based on the freelance patternmaker's recommendations. Patient was informed and verbally consented to the use of an ambient scribe for clinic note documentation during this visit. Discussion Notes I discussed the newly observed proteinuria with the patient, highlighting the need for further evaluation by nephrology to explore potential kidney concerns. The importance of this step was emphasized, along with reassurances regarding the ongoing stability of his BPH management. The patient consented to this plan and was agreeable to following up with nephrology. A referral has been initiated, and he should hear from them within a week. Follow-up was scheduled for nine months unless issues arise in the interim. Patient Instructions - Continue taking finasteride 5 mg daily for BPH. - Await nephrology evaluation for further information on kidney function. - Monitor for any new or worsening symptoms and report them. - Attend the scheduled follow-up in nine months or sooner if advised by nephrology. 05/19/24--s/p TURP on 09/29/23 for urinary retention. Florentin states he is doing well. Will cont proscar 5 mg daily. DC tamsulosin. Reviewed and discussed renal US 02/16/24- within normal limits. 10/19/2023--Florentin is an 83-year-old male who has been followed by Dr. Ulloa for BPH. The patient was evaluated by me in the emergency room on 09/09/23 due to gross hematuria and urinary retention. At that time a Castrejon catheter was not able to be inserted and flexible cystoscopy noted traumatic changes of the bulbous urethra. A percutaneous suprapubic tube was placed at that time. The patient is status post cystoscopy limited TURP, Castrejon insertion and removal of percutaneous SP tube on 09/29/23. The patient was seen by nursing for voiding trial on 10/05/2023. The patient states he has been voiding well he denies any repeat episodes of dysuria or gross hematuria. Bladder scan PVR today is 98 mL, UA leuk 2+, blood 1+ On examination -abdomen-a gauze dressing was still taped to lower abdomen and was removed cystotomy site well healed. Plan: Monitor PVR Surveillance urine culture Follow-up in 4 months, renal ultrasound prior [facility] Medical History Hx of syncope Anemia, iron deficiency Hypokalemia Vaccine refused by patient Refused pneumococcal vaccination COVID-19 vaccination refused Refused influenza vaccine Vitamin D deficiency Hx of gastritis Hearing impairment Normocytic normochromic anemia Benign prostatic hyperplasia with urinary retention Duodenitis Erosive gastritis with hemorrhage Hiatal hernia Productive cough Smokes with greater than 40 pack year history Intermittent lightheadedness Essential hypertension Insomnia disorder, with non-sleep disorder mental comorbidity Surgical History No pertinent past surgical history Family History Father Parkinson's disease Social History Housing: Apartment Alcohol intake: former Patient Tobacco Use Status: Current everyday Tobacco user Tobacco use type: Cigarette Cigarette Packs Per Day: 0 Cigarettes Per Day: 10 e-Cigarette/Vaping Use: Never Used service: No Current occupational status: retired Cognitive needs: No Hearing needs: Yes Vision needs: Yes Office Procedures Post Void Residual Post Residual Void Post Void Residual (PVR): 67 13100-Frpx Void Residual by ultrasound Results AMB Urinalysis, Automated UA Leukoctes 0 Osorio/uL Last Edit by Miriam Kay on 11/24/24 16:29 UA Nitrite Negative Last Edit by Miriam Kay on 11/24/24 16:29 UA Urobilinogen 17 mg/dL Last Edit by Miriam Kay on 11/24/24 16:29 UA Protein 0.3 mg/dL Last Edit by Miriam Kay on 11/24/24 16:29 UA pH 6.0 Last Edit by Miriam Kay on 11/24/24 16:29 UA Blood 0 Sheldon/uL Last Edit by Miriam Kay on 11/24/24 16:29 UA Specific [place] 1.015 Last Edit by Miriam Kay on 11/24/24 16:29 UA Ketone Positive Last Edit by Miriam Kay on 11/24/24 16:29 UA Bilirubin 0 mg/dL Last Edit by Miriam Kay on 11/24/24 16:29 UA Glucose 0 mg/dL Last Edit by Miriam Kay on 11/24/24 16:29 Assessment & Plan Assessment & Plan (1) BPH with elevated PSA: Code(s): N40.0 - Benign prostatic hyperplasia without lower urinary tract symptoms; R97.20 - Elevated prostate specific antigen [PSA] Category: Medical (2) Proteinuria: Code(s): R80.9 - Proteinuria, unspecified Category: Medical Orders: Orders AMB Urinalysis Automated Today Z13.9 - Encounter for screening, unspecified Referrals Nephrology Referral R80.9 - Proteinuria, unspecified Medications: Refilled finasteride 5 mg PO DAILY 90 tabs 3RF 90 days N40.1 - Benign prostatic hyperplasia with lower urinary tract symptoms, R33.8 - Other retention of urine Coding Diagnoses BPH with elevated PSA N40.0; R97.20 Proteinuria R80.9 CPT Codes Post Residual Void - PVR CPT Code: 62720-Ootm Void Residual by ultrasound ([id number])
--- OUTSIDE RECORDS SUMMARY | 2024-11-24 19:10 | XMS_ITS | Encounter Summary ---
Author Organization [employer] Address [address] [place] [address] Care Team Providers Care Soil Science Technical Officer Name Role Phone Unavailable Primary Care Provider Unavailabl e Encounter Details Date Type Department Care Team (Late st Contact Info) Description 03/09/2023 Abstract [facility] [address] [place], [place] [phone] Florentin Light DDS [address] [place], [place] [phone] Social History Tobacco Use Types Packs/Day Years Used Date Smoking Tobacco: Former Cigarettes 0.3 0.5 Passive Smoke Exposure: Never Smokeless Tobacco: Former Alcohol Use Standard Drinks/Week Comments Never 0 (1 standard drink = 0.6 oz pur e alcohol) Sex and Gender Information Value Date Recorded Sex Assigned at Male 02/10/2023 12:10 PM EDT Legal Sex Male 12:09 PM EDT Gender Identity Male 02/10/2023 12:10 PM EDT Sexual Orientation Straight 02/10/2023 12 :10 PM EDT COVID-19 Exposure Response Date Recorded In the last 10 days, have yo u been in contact with someone who was confirmed or suspected to have Coronavirus/COVID-19? No / Unsure 03/05/2023 10:00 AM EDT documented as of this encounter Plan of Treatment Not on file documented as of this encounter Visit Diagnoses Not on filedocumented in this encounter
--- OUTSIDE RECORDS SUMMARY | 2024-11-24 19:10 | XMS_ITS | Encounter Summary ---
Author Organization [employer] Address [address] [place] [address] Care Team Providers Care Bi Data Architect Name Role Phone Unavailable Primary Care Provider Unavailabl e Encounter Details Date Type Department Care Team (Late st Contact Info) Description 03/09/2023 Abstract [facility] [address] [place], [place] [phone] Florentin Light DDS [address] [place], [place] [phone] Social History Tobacco Use Types Packs/Day Years [...]
--- OUTSIDE RECORDS SUMMARY | 2024-11-24 19:10 | XMS_ITS | Clinical Summary ---
Author Organization [employer] Address [address] [place] [address] Care Team Providers Care Water Fabricator Operator Name Role Phone Unavailable Primary Care Provider Unavailabl e Allergies No known active allergies Medications tamsulosin (Flomax) 0.4 MG 24 hr capsule Take 0.4 mg by mouth at bedtime. 07/23/2023 Active lisinopril 5 MG tablet Take 5 mg by mouth in the morning. 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 Dental caries 03/25/2023 Edentulous maxilla 03/05/2023 Dental root caries 03/05/2023 Social History Tobacco Use Types Packs/Day Years Used Date Smoking Tobacco: Former Cigarettes 0.3 0.5 Passive Smoke Exposure: Never Smokeless Tobacco: Former Tobacco Cessation:Counseling Given: Not Answered Alcohol Use Standard Drinks/Week Comments Never 0 (1 standard drink = 0.6 oz pur e alcohol) Sex and Gender Information Value Date Recorded Sex Assigned at Male 02/10/2023 12:10 PM EDT Legal Sex Male 12:09 PM EDT Gender Identity Male 02/10/2023 12:10 PM EDT Sexual Orientation Straight 02/10/2023 12 :10 PM EDT Last Filed Vital Signs Vital Sign Reading Time Taken Comments Blood Pressure 160/100 01/15/2024 10:42 AM EDT Pulse 96 01/15/2024 10:42 AM EDT Temperature - - Respiratory Rate - - Oxygen Saturation - - Inhaled Oxygen Concentration - - Weight - - Height - - Body Mass Index - - Plan of Treatment Health Maintenance Due Date Last Done Comments Dental Prophylaxis 1942 Dental X-Ray: Bitewings 1942 Depression Screening 1942 Lipid Panel 1942 SDOH Screening 1942 Alcohol/Substance Use Screening 1954 DTaP/Tdap/Td Vaccines (1 - Tdap) 1961 Pneumococcal Vaccine: 50+ Ye ars (1 of 1 - PCV) 1992 Zoster Vaccines (1 of 2) 1992 RSV Patients and Pa tients Aged 60 years or older (1 - 1-dose 75+ series) 2017 Dental Oral Exam 09/05/2023 03/05/2023 COVID-19 Vaccine (1 - 2023-2 5 season) 2024 Influenza Vaccine (#1) 2024 05/26/2017 Tobacco Screening 01/14/2025 01/15/2024 Dental X-Ray: Full Mouth 03/06/2026 03/05/2023 HIB Vaccines Aged Out No longer eligi ble based on patient's age to complete this topic HPV Vaccines Aged Out No longer eligi ble based on patient's age to complete this topic Hepatitis A Vaccines Aged Out No long er eligible based on patient's age to complete this topic Hepatitis B Vaccines Aged Out No long er eligible based on patient's age to complete this topic IPV Vaccines Aged Out No longer eligi ble based on patient's age to complete this topic Meningococcal Vaccine Aged Out No saad barron eligible based on patient's age to complete this topic RSV under 20 months Aged Out No longe r eligible based on patient's age to complete this topic Rotavirus Vaccines Aged Out No longer eligible based on patient's age to complete this topic Procedures Procedure Name Priority Date/Time Associated Diagnosis Comments PANORAMIC RADIOGRAPHIC IMAGE Routine 03/05/2023 10:00 AM EDT COMPREHENSIVE ORAL EVALUATION - NEW OR ESTABLISHED PATIENT Routine 03/05/2023 10:00 AM EDT from Last 3 Months or Most Recently Relevant to Health Maintenance Insurance [facility]
== END 2024-11-24 16:10 | disposition home or self-care (01) ==
LOC: HO.HUSH 15:43
PROVIDERS: PCP Internal Medicine; Visit Provider Urology
DX: Z13.9 Encounter for screening, unspecified (principal)

== ENCOUNTER → 2024-11-24 15:43 | Outpatient (BNVA) | payer MEDICARE, MEDICAID, SELFPAY | PROVIDERS: PCP Internal Medicine; Visit Provider Urology | DX: N40.0 Benign prostatic hyperplasia without lower urinary tract symptoms (principal); R80.9 Proteinuria, unspecified; R97.20 Elevated prostate specific antigen [PSA] | CPT/HCPCS: 51798; 81003; 99212 ==

== ENCOUNTER 2024-11-30 09:32 | Inpatient (IN) | payer MEDICARE, MEDICAID, SELFPAY ==
[2024-11-30] VITALS (12 sets, daily range): BP systolic 98–180; BP diastolic 46–94; PULSE 71–106; RESP 16–20; TEMP 36.6–37.4; O2SAT 85–99; BMI 16.0; BMI 16.7
--- NOTE | ~2024-11-30 | XR_ITS ---
EXAMINATION: XR CHEST 1 VIEW HISTORY: cough COMPARISON: Comparison is made with the prior examination dated 01/30/2021. FINDINGS: A single AP portable view of the chest performed at 12:49 PM is submitted. There is airspace opacity in the right midlung zone most prominent in the infrahilar region. There is no pleural effusion, pneumothorax, or pulmonary vascular congestion. The heart is normal in size. There is degenerative disc disease of the spine. XR/XR chest 1V IMPRESSION: Airspace opacity in the right midlung zone most prominent in the infrahilar region. This may represent pneumonia, although a mass is not excluded. Follow-up is recommended to document resolution. Electronically signed by: Jose Bob MD 11/30/2024 01:04 PM EDT
--- NOTE | ~2024-11-30 | CT_ITS ---
EXAMINATION: CT HEAD WITHOUT IV CONTRAST HISTORY: fall + HS, syncope. TECHNIQUE: Unenhanced helical CT of the head was performed per standard departmental protocol. Coronal and sagittal reformats of the head were also evaluated. One or more of the following techniques was used for dose reduction: Automated exposure control, adjustment of the mA and/or kV according to patient size, use of iterative reconstruction technique. DLP: 591 mGy-cm COMPARISON: Comparison is made with the prior examination dated 09/25/2011. FINDINGS: BRAIN: There is diffuse prominence of the ventricular system and cortical sulci, consistent with atrophy. Periventricular and subcortical white matter hypodensities are noted which are nonspecific, but often seen in the setting of small vessel ischemic disease. 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 There is no mass effect or midline shift. No intra- or extra-axial fluid collections are identified. SINUSES: The visualized paranasal sinuses are clear. The mastoid air cells and middle ear cavities are well pneumatized. ORBITS: The visualized orbits are unremarkable. BONES/SOFT TISSUES: The extracranial soft tissues are unremarkable. The calvarium is intact. No suspicious lytic or sclerotic lesions. CT/CT head/brain wo IV con IMPRESSION: No acute intracranial abnormality. Electronically signed by: Jose Bob MD 11/30/2024 11:57 AM EDT
--- NOTE | ~2024-11-30 | NM_ITS ---
EXAMINATION: NM LUNG PERFUSION HISTORY: r/o PE, CP, syncope, elevated Cr. TECHNIQUE: A pulmonary perfusion scan was performed following the intravenous administration of 4 mCi technetium 99m-MAA. The patient was scanned in multiple projections. COMPARISON: Correlation is made with an AP portable view of the chest performed the same day. FINDINGS: There is a segmental perfusion defect involving the posterior basal segment of the right lower lobe as well as decreased perfusion centrally in the right lung. The opacity noted on chest x-ray is in this location. This may also partly be attributed to the patient's arms which are at his side. There is additional decreased perfusion to the posterior basal segment of the left lower lobe which may be due to the patient's arms. Evaluation is also limited by lack of ventilation images. Findings are consistent with indeterminant probability for pulmonary emboli. NM/NM pul perfusion IMPRESSION: Indeterminate probability for pulmonary emboli. Electronically signed by: Jose Bob MD 11/30/2024 01:09 PM EDT
--- NOTE | ~2024-11-30 | CT_ITS ---
EXAMINATION: CT CERVICAL SPINE WITHOUT IV CONTRAST HISTORY: fall, syncope. TECHNIQUE: Helical CT of the cervical spine was performed per standard departmental protocol. Coronal and sagittal reformatted images were also evaluated. One or more of the following techniques was used for dose reduction: Automated exposure control, adjustment of the mA and/or kV according to patient size, use of iterative reconstruction technique. DLP: 267 mGy-cm COMPARISON: There are no prior studies for comparison. FINDINGS: CERVICAL SPINE: The vertebral bodies maintain normal height without evidence of fracture or subluxation. There is straightening of the normal cervical lordosis. There is diffuse moderate degenerative disc disease with disc space narrowing and osteophyte formation. Evaluation for disc pathology is limited by lack of intrathecal contrast material, however. BRAIN: The visualized portion of the brain is unremarkable. SINUSES: The visualized paranasal sinuses, mastoid air cells and middle ear cavities are unremarkable. LUNG APICES: The visualized lung apices are clear. SOFT TISSUES: The visualized paraspinal soft tissues are unremarkable. CT/CT cervical spine wo IV con IMPRESSION: Straightening of the normal cervical lordosis. No evidence of fracture or subluxation of the cervical spine. Degenerative changes as described. Electronically signed by: Jose Bob MD 11/30/2024 12:10 PM EDT
--- NOTE | 2024-11-30 09:56 | ECG_ITS ---
Test Reason : cough, syncope Blood Pressure : */* mmHG Vent. Rate : 81 BPM Atrial Rate : 81 BPM P-R Int : 166 ms QRS Dur : 88 ms QT Int : 370 ms P-R-T Axes : 67 27 73 degrees QTcB Int : 429 ms Normal sinus rhythm Normal ECG When compared with ECG of 06-Jul-2019 03:02, No significant change was found Referred By: Dominique Lopez Electronically Signed By: Heriberto Callaway
--- NOTE | 2024-11-30 10:09 | ED.FALL ---
HPI - Fall General Chief Complaint: Fall Stated Complaint: repeated falls w/ r sided chest pain Time Seen by Provider: 11/30/24 09:39 Source: patient, EMS, RN notes reviewed and old records reviewed Mode of arrival: EMS History of Present Illness ED Provider: Dominique Lopez PA-C HPI Narrative: 84-year-old male with a past medical history of anemia, gastritis, HTN, insomnia, BPH, presenting to the ED via EMS complaining of frequent falls this week with dry cough, right-sided chest pain, and syncopal episodes. Last fall [employer] with + head strike. Reports developing coughing fit followed by lightheadedness and brief syncope. Reports about 4 falls at home. Denies AC use. Denies neck/back pain, SOB, abdominal pain, nausea/vomiting Related Data Previous Rx's ?Medication ?Instructions ?Recorded lisinopril 5 mg tablet 5 mg PO DAILY #90 tabs 12/30/22 tadalafil 20 mg tablet 20 mg PO ONCE PRN sexual activity 06/26/23 30 days #30 tabs clotrimazole-betamethasone 1 1 appl topical BID apply to penis 09/23/23 %-0.05 % topical cream 2 weeks #45 grams fluconazole 150 mg tablet 150 mg PO DAILY 3 days #3 tabs 10/23/23 Combivent Respimat 20 mcg-100 1 puff inhalation Q6H #4 grams 01/06/24 mcg/actuation solution for inhalation (ipratropium-albuterol) trazodone 50 mg tablet 25 mg (1/2 x 50 mg) PO BEDTIME PRN 01/16/24 insomnia #20 tabs ferrous sulfate 325 mg (65 mg 325 mg PO DAILY #90 tabs 09/09/24 iron) tablet finasteride 5 mg tablet 5 mg PO DAILY 90 days #90 tabs 11/24/24 Allergies Allergy/AdvReac Type Severity Reaction Status Date / Time No Known Allergies Allergy Verified 11/30/24 09:51 Review of Systems Review of Systems: Yes all other systems are reviewed and are negative Constitutional: Constitutional: Reports as per HPI Neurologic: Denies Abnormal speech present COUNT INCLUDES THE [facility] Past Medical History Attestation statement: The following information was validated with the patient. Source: old records reviewed Medical History Hx of syncope Anemia, iron deficiency Hypokalemia Vaccine refused by patient Refused pneumococcal vaccination COVID-19 vaccination refused Refused influenza vaccine Vitamin D deficiency Hx of gastritis Hearing impairment Normocytic normochromic anemia Benign prostatic hyperplasia with urinary retention Duodenitis Erosive gastritis with hemorrhage Hiatal hernia Productive cough Smokes with greater than 40 pack year history Intermittent lightheadedness Essential hypertension Insomnia disorder, with non-sleep disorder mental comorbidity Surgical History No pertinent past surgical history Family History Family History Father Parkinson's disease Social History Social History Housing: Apartment Alcohol intake: former Patient Tobacco Use Status: Current everyday Tobacco user Tobacco use type: Cigarette Cigarette Packs Per Day: 0 Cigarettes Per Day: 10 Smoked in Last 30 Days: Yes e-Cigarette/Vaping Use: Never Used Use of substances other than those prescribed or required for medical reasons: No Advance Directives: No Advance Directives Information Provided: Yes Do you have a plan to hurt others: No Plan service: No Current occupational status: retired Cognitive needs: No Hearing needs: Yes Vision needs: Yes Physical Exam Vital Signs: Vital Signs: Last Vital Signs Temp 97.9 F 11/30/24 12:38 Pulse 79 11/30/24 12:43 Resp 16 11/30/24 12:38 BP 156/63 H 11/30/24 12:43 Pulse Ox 85 L 11/30/24 12:38 O2 Del Method Room Air 11/30/24 12:38 BMI result Body Mass Index 16.0 Const: General: cooperative and no acute distress Orientation/consciousness: patient oriented x3 Limitations: no limitations HEENT: Head: Yes normal to inspection and Yes atraumatic Ears: hearing grossly normal bilaterally General nose exam: Normal external nose present Face and sinus: Yes normal facial exam Mouth: Normal oral and palatal mucosa present and no drooling Throat: Yes posterior oropharynx normal Eyes: General: appearance normal, both eyes and all related structures Pupils: Equal, round and reactive pupils present EOM: EOMs intact bilaterally Neck: Other: C-collar in place Neck: Yes normal visual inspection and Yes no meningeal signs Chest: Chest palpation & inspection: normal inspection of the chest, no crepitus and no tenderness Resp: Effort & Inspection: normal respiratory effort and no respiratory distress Auscultation: diminished lung sounds bilateral in the lower lung lester Cardio: Rate: regular rate and tachycardic Heart sounds: S1 normal heart sound present and S2 normal heart sound present GI: Inspection: Yes normal to inspection Palpation (GI): Soft to palpation, nontender, no guarding and not rigid Back/Spine/Pelvis: Other: No midline cervical/thoracic/lumbar spinous tenderness/step-off or deformity Skin: Rashes: no rashes Wounds: no wounds Neuro: General: patient oriented x3, tone normal, moves all extremities, no meningeal signs, no focal motor deficits and CN's II-XI intact bilaterally Cranial nerves: Yes CN's II-XII intact bilaterally, Yes Equal, round and reactive pupils present and Yes Bilaterally intact EOM present Cognition (Neuro): normal cognition Speech: No Abnormal speech present Gait exam (Neuro): Normal gait present Extrem: General: Yes normal to inspection and Yes no pedal edema Course Course Course Narrative: + JESSIE with BUN of 56 creatinine of 1.69 > IVF running. Will change CT PE study to V/Q scan due to renal function. - Initial troponin 29.4 > will obtain repeat -1154-- leukocytosis of 16.3. H&H at patient's baseline. > will obtain lactic/blood cultures and empiric IV Rocephin ordered. > sepsis called however patient off the floor in [place]. There will be delay in lactic/blood cultures and antibiotic hanging due to radiology studies CT head/brain wo IV con IMPRESSION: No acute intracranial abnormality -1326--lactic acid 2.4 CT cervical spine wo IV con IMPRESSION: Straightening of the normal cervical lordosis. No evidence of fracture or subluxation of the cervical spine. Degenerative changes as described. XR chest 1V IMPRESSION: Airspace opacity in the right midlung zone most prominent in the infrahilar region. This may represent pneumonia, although a mass is not excluded. Follow-up is recommended to document resolution. VT pul perfusion IMPRESSION: Indeterminate probability for pulmonary emboli. > Plan to admit for further management Medications Administered Discontinued Medications Generic Name Dose Route Start Last Admin Trade Name Freq PRN Reason Stop Dose Admin Ceftriaxone Sodium 1 gm 11/30/24 11:53 11/30/24 12:33 Ceftriaxone Sodium 1 Gm Vial IVPUSH 11/30/24 11:54 1 gm ONCE ONE Administration Sodium Chloride 1,000 mls @ 999 mls/hr 11/30/24 10:00 11/30/24 11:39 Ns IV 11/30/24 11:00 Infused .Q1H1M CAROLE Infusion Sodium Chloride 1,000 mls @ 999 mls/hr 11/30/24 12:30 11/30/24 12:27 Ns IV 11/30/24 13:30 999 mls/hr .Q1H1M CAROLE Administration Medical Decision Making Medical Decision Making MDM Narrative: [10:00] 84-year-old male with a past medical history of anemia, gastritis, HTN, insomnia, BPH, presenting to the ED via EMS complaining of frequent falls this week with dry cough, right-sided chest pain, and syncopal episodes. Last fall [employer] with + head strike. On exam BP soft, tachycardic, NAD, C-collar in place, no midline spinous tenderness throughout, no focal neuro deficits, no reproducible chest wall or abdominal tenderness. Lungs with diminished sounds bibasilarly. Concern for viral illness vs pneumonia vs bronchitis vs pulmonary embolism vs syncopal episodes with head strike. Rule out ICH/fractures. Rule out metabolic infectious etiologies. Low suspicion for severe sepsis at this time. Plan: EKG, labs, UA, head/C-spine CT, CT PE, orthostatics, IVF, anticipated admission Please refer to course for remaining clinical decision making, interpretation of labs/imaging results, and discussions with consultants and/or family members. Differential Diagnosis Differential Diagnoses: The differential diagnosis associated with the presentation includes As above Admission/Observation Consideration of admission/observation: Escalation of care including admission/observation considered Consult Healthcare Provider Management of the patient was discussed with: Hospitalist Lab Data [facility] Lab Attestation statement: I reviewed the patient's lab results. 11/30/24 10:50 11/30/24 10:50 Labs: Lab Results 11/30/24 11/30/24 Range/Units 10:50 12:31 WBC 16.3 H (4.8-10.8) X10*3/uL RBC 3.77 L (4.60-5.80) X10*6/uL Hgb 12.1 L (14.0-18.0) g/dl Hct 33.8 L (42.0-52.0) % MCV 89.7 (80.0-98.0) fL MCH 32.1 (27.0-33.0) pg MCHC 35.8 (31.0-36.0) g/dl RDW 13.9 (11.0-16.0) % Plt Count 129 L D (160-400) X10*3/uL MPV 11.8 (9.4-12.4) fL Immature Gran % (Auto) Cancelled Neut % (Auto) Cancelled Lymph % (Auto) Cancelled Wilson % (Auto) Cancelled Eos % (Auto) Cancelled Baso % (Auto) Cancelled Lymph # (Auto) Cancelled Wilson # (Auto) Cancelled Eos # (Auto) Cancelled Baso # (Auto) Cancelled Abs Immat Gran (auto) Cancelled Absolute Neuts (auto) Cancelled Absolute Nucleated RBC 0.000 (0.0-0.012) X10*3/uL Nucleated RBC % (auto) 0.0 (0.0-0.2) /100WBC Neutrophils % (Manual) 81 H (45-73) % Band Neutrophils % 12 H (3-5) % Lymphocytes % (Manual) 3 L (20-40) % Monocytes % (Manual) 2 (2-11) % Eosinophils % (Manual) 1 (0-4) % Metamyelocytes % 1 % Abs Neuts (Manual) 15.2 H (2.0-8.3) X10*3/uL Lymphocytes # (Manual) 0.5 L (1.2-4.9) X10*3/uL Monocytes # (Manual) 0.3 (0.1-1.2) X10*3/uL Eosinophils # (Manual) 0.2 (0.0-0.4) X10*3/uL Metamyelocytes # 0.2 X10*3/uL Toxic Vacuolation PRESENT Dohle Bodies PRESENT Platelet Estimate DECREASED (NORMAL) Plt Morphology Comment NORMAL RBC Morphology NORMAL PT 13.4 H (10.9-12.4) SEC INR 1.2 H (0.9-1.1) Sodium 135 (135-145) mmol/L Potassium 3.9 (3.3-5.1) mmol/L Chloride 106 (96-108) mmol/L Carbon Dioxide 21 L (22-29) mmol/L Anion Gap 12 (12-20) BUN 56 H (9-16) mg/dL Creatinine 1.69 H (0.5-1.4) mg/dL Estim Creat Clear Calc 22.0 Estimated GFR 39 Random Glucose 108 (60-115) mg/dL Lactic Acid 2.4 H* (0.5-2.0) mmol/L Calcium 9.0 D (8.4-10.2) mg/dL Magnesium 2.1 (1.6-2.6) mg/dL Total Bilirubin 0.6 (0.0-1.0) mg/dL Direct Bilirubin 0.3 (0.0-0.5) mg/dL AST 25 (5-37) U/L ALT 15 (0-40) U/L Alkaline Phosphatase 47 (39-117) U/L Troponin I High Sens 29.4 (<3.5-35.0) ng/L B-Natriuretic Peptide 147 H (<100) pg/mL Total Protein 7.4 (6.5-8.0) g/dL Albumin 3.2 L (3.5-5.0) g/dL Influenza Type A (PCR) NEGATIVE (Negative) Influenza Type B (PCR) NEGATIVE (Negative) RSV RNA Qual (PCR) NEGATIVE (Negative) SARS-CoV-2 RNA (RT-PCR) NEGATIVE (Negative) Independent Interpretation I performed an independent interpretation of an: EKG and CT Scan Radiology Impression Discussion of test interpretation with radiology: I have reviewed the radiologist's reading. Independent Historian Clinical information obtained from an independent historian. History obtained from or confirmed by: EMS External Record Review External record reviewed: Inpatient record, Office record, Outpatient record, Prior outpatient labs, Prior outpatient radiology, Primary care record and Outside ED record Tests considered The following testing was considered but not selected: As above Prescription Management I considered prescription management with: Pain Medication Chronic Conditions Patient?s care impacted by: Hypertension Social Determinants Patient?s care significantly limited by Social Determinants of Health including: Inadequate housing, Problems related to primary support group and Other Social Determinant of Health Critical Care Time Critical Care Time Critical Care Time: Yes Total Critical Care Time: 40 Attestation: I have personally provided critical care time exclusive of time spent on separately billable procedures. Time includes review of lab data, radiology results, discussion with consultants, and monitoring for potential decompensation. Intervention performed as documented. Discharge Plan Discharge Clinical Impression: Pneumonia, JESSIE (acute kidney injury), Syncope, Multiple falls Patient Disposition: Admitted As Inpatient Print Language: Swedish
[2024-11-30] MEDS: 0.9 % Sodium Chloride 1,000 ML 999 ML IV ×2 (10:57→12:27)
[2024-11-30 11:02] LABS: Hematocrit 33.8 % (42.0-52.0); Hemoglobin 12.1 g/dl (14.0-18.0); Mean Corpuscular HGB Conc 35.8 g/dl (31.0-36.0); Mean Corpuscular Hemoglobin 32.1 pg (27.0-33.0); Mean Corpuscular Volume 89.7 fL (80.0-98.0); Mean Platelet Volume 11.8 fL (9.4-12.4); Platelet Count 129 X10*3/uL (160-400); Red Blood Count 3.77 X10*6/uL (4.60-5.80); Red Cell Distribution Width 13.9 % (11.0-16.0); White Blood Count 16.3 X10*3/uL (4.8-10.8)
--- NOTE | 2024-11-30 11:03 | PC.NURSE ---
Pts family member at bedside (son) reports he is able to transport Pt home if needed and can be contacted at [phone].
[2024-11-30 11:07] LABS: INTERNATIONAL NORM RATIO 1.2 (0.9-1.1); Prothrombin Time 13.4 SEC (10.9-12.4)
[2024-11-30 11:16] LABS: Alanine Aminotransferase 15 U/L (0-40); Albumin Level 3.2 g/dL (3.5-5.0); Alkaline Phosphatase 47 U/L (39-117); Anion Gap 12 (12-20); Aspartate Amino Transferase 25 U/L (5-37); Bilirubin Direct 0.3 mg/dL (0.0-0.5); Bilirubin Total 0.6 mg/dL (0.0-1.0); Blood Urea Nitrogen 56 mg/dL (9-16); Carbon Dioxide 21 mmol/L (22-29); Chloride 106 mmol/L (96-108); Estimated Glomerular Filt Rate 39; Glucose Random 108 mg/dL (60-115); Magnesium 2.1 mg/dL (1.6-2.6); Potassium 3.9 mmol/L (3.3-5.1); Sodium 135 mmol/L (135-145); Total Protein 7.4 g/dL (6.5-8.0)
[2024-11-30 11:19] LABS: B Type Natriuretic Peptide 147 pg/mL (<100); Troponin-I High Sensitivity 29.4 ng/L (<3.5-35.0)
[2024-11-30 11:34] LABS: Influenza A PCR NEGATIVE (Negative); Influenza B PCR NEGATIVE (Negative); Resp Syncy Virus RNA Qual PCR NEGATIVE (Negative); SARS COV2 PCR INHOUSE NEGATIVE (Negative)
[2024-11-30 11:36] LABS: Eosinophils Absolute Manual 0.2 X10*3/uL (0.0-0.4); Eosinophils Percent Manual 1 % (0-4); Lymphocytes Absolute Manual 0.5 X10*3/uL (1.2-4.9); Lymphocytes Percent Manual 3 % (20-40); Metamyelocytes Absolute 0.2 X10*3/uL; Metamyelocytes Percent 1 %; Monocytes Absolute Manual 0.3 X10*3/uL (0.1-1.2); Monocytes Percent Manual 2 % (2-11); Neutrophils Absolute Manual 15.2 X10*3/uL (2.0-8.3); Neutrophils Percent Manual 81 % (45-73)
[2024-11-30 11:39] LABS: Band Neutrophils Percent 12 % (3-5)
[2024-11-30 11:41] LABS: Dohle Bodies PRESENT; Platelet Estimate DECREASED (NORMAL); Platelet Morphology Comment NORMAL; RBC Morphology NORMAL; Toxic Vacuolation PRESENT
--- NOTE | 2024-11-30 11:45 | PC.NURSE ---
Pt returns from CT scan and is now leaving the unit for nuclear medicine.
--- NOTE | 2024-11-30 12:03 | PC.NURSE ---
Sepsis alert called at 1154. Pt has been off unit since 1145 for nuclear medicine procedure. ED provider aware of Pts absence at time of calling alert. Abx and cultures will be delayed as pt is off the unit and will be completed upon Pts return.
--- NOTE | 2024-11-30 12:10 | PC.NURSE ---
Pt returns from nuclear medicine. Sepsis workup to be completed now.
[2024-11-30] MEDS: cefTRIAXone sodium 1 GM VIAL IVPUSH (12:33)
[2024-11-30 13:02] LABS: Lactic Acid 2.4 mmol/L (0.5-2.0)
--- NOTE | 2024-11-30 14:28 | P.HPHOSP_ITS ---
History of Present Illness Date of Service: 11/30/24 Chief Complaint: Falls 84 year old male with HTN,COPD, BPH recurrent falls and syncope etiology unclear. He presents with fals again, last one being just today and sustained left posterior scalp hematoma, he's not clear of passing out, he also c/o right should and scapula area pain as result of the fall. CT of the headm C-spine unremarkable. CXR show possible pneumonia, a VQ scan show intermediate prob for PE. D-dimer not done. WBC is 16, he is given ceftriaxone and Azithromycin for pneumonia. He has JESSIE with creatine of 1.69 this is new Review of Systems 2 Review of Systems: Gen: no fever Resp: no sob, no cough CV: no chest, no KRISH[place]URTHY, no leg edema GI: No n/v, no abd pain MusK: right sacupala area pain, right chest area pain Neuro: No confusion Yes all other systems are reviewed and are negative [facility] Medical History Hx of syncope Anemia, iron deficiency Hypokalemia Vaccine refused by patient Refused pneumococcal vaccination COVID-19 vaccination refused Refused influenza vaccine Vitamin D deficiency Hx of gastritis Hearing impairment Normocytic normochromic anemia Benign prostatic hyperplasia with urinary retention Duodenitis Erosive gastritis with hemorrhage Hiatal hernia Productive cough Smokes with greater than 40 pack year history Intermittent lightheadedness Essential hypertension Insomnia disorder, with non-sleep disorder mental comorbidity Family History Father Parkinson's disease Surgical History No pertinent past surgical history Social History Housing: Apartment Alcohol intake: former Patient Tobacco Use Status: Never used Tobacco Tobacco use type: Cigarette Cigarette Packs Per Day: 0 Cigarettes Per Day: 10 e-Cigarette/Vaping Use: Never Used service: No Current occupational status: retired Cognitive needs: No Hearing needs: Yes Vision needs: Yes Meds Allergies Allergy/AdvReac Type Severity Reaction Status Date / Time No Known Allergies Allergy Verified 11/30/24 09:51 Active Medications: Current Medications Azithromycin (Azithromycin 250 Mg Tablet) 250 mg PO Q24H CAROLE Ceftriaxone Sodium (Ceftriaxone Sodium 2 Gm Vial) 2 gm IVPUSH Q12H CAROLE Azithromycin 500 mg/ Sodium (Chloride) 250 mls @ 125 mls/hr IV ONCE ONE Stop: 11/30/24 16:21 Home Medications ?Medication ?Instructions ?Recorded ?Confirmed ?Last Taken ?Type finasteride 5 mg tablet 5 mg PO DAILY 12/01/24 12/01/24 Unknown History Physical Exam 2 Vital Signs and Narrative: Vital Signs: Last Vital Signs Temp 97.9 F 11/30/24 12:38 Pulse 72 11/30/24 13:44 Resp 17 11/30/24 13:44 BP 138/64 11/30/24 13:44 Pulse Ox 97 11/30/24 13:44 O2 Del Method Room Air 11/30/24 13:44 BMI result Body Mass Index 16.0 Const: Other: Constitutional: Alert, in no distress, overweight. Mental Status: Oriented to person, place and time. Eyes: Pupils are equal, round and reactive to light. Ear, Nose and Throat: Oropharynx clear, mucous membranes moist. Ears and nose without eformities. Trachea midline. Respiratory: Clear to auscultation. No wheezing, rales or rhonchi. Cardiovascular: S1 S2 regular. No murmurs, rubs or gallops. Gastrointestinal: Abdomen soft, non-tender, non-distended. Normal bowel sounds.? Neurologic: Cranial nerves II-XII grossly intact. No focal neurological deficits. Moves all extremities spontaneously.? Skin: No rashes or lesions.? Musculoskeletal: No cyanosis or clubbing. Psychiatric: Normal mood and affect? Results Labs 12/01/24 12:19 12/01/24 06:15 Labs: Laboratory Results - last 24 hr 11/30/24 11/30/24 10:50 12:31 MCV 89.7 MCH 32.1 MCHC 35.8 RDW 13.9 Plt Count 129 L D MPV 11.8 Immature Gran % (Auto) Cancelled Neut % (Auto) Cancelled Lymph % (Auto) Cancelled [place] % (Auto) Cancelled Eos % (Auto) Cancelled Baso % (Auto) Cancelled Lymph # (Auto) Cancelled [place] # (Auto) Cancelled Eos # (Auto) Cancelled Baso # (Auto) Cancelled Abs Immat Gran (auto) Cancelled Absolute Neuts (auto) Cancelled Absolute Nucleated RBC 0.000 Nucleated RBC % (auto) 0.0 Neutrophils % (Manual) 81 H Band Neutrophils % 12 H Lymphocytes % (Manual) 3 L Monocytes % (Manual) 2 Eosinophils % (Manual) 1 Metamyelocytes % 1 Abs Neuts (Manual) 15.2 H Lymphocytes # (Manual) 0.5 L Monocytes # (Manual) 0.3 Eosinophils # (Manual) 0.2 Metamyelocytes # 0.2 Toxic Vacuolation PRESENT Dohle Bodies PRESENT Platelet Estimate DECREASED Plt Morphology Comment NORMAL RBC Morphology NORMAL PT 13.4 H INR 1.2 H Anion Gap 12 Estim Creat Clear Calc 22.0 Estimated GFR 39 Random Glucose 108 Lactic Acid 2.4 H* Calcium 9.0 D Magnesium 2.1 Total Bilirubin 0.6 Direct Bilirubin 0.3 AST 25 ALT 15 Alkaline Phosphatase 47 B-Natriuretic Peptide 147 H Total Protein 7.4 Albumin 3.2 L Influenza Type A (PCR) NEGATIVE Influenza Type B (PCR) NEGATIVE RSV RNA Qual (PCR) NEGATIVE SARS-CoV-2 RNA (RT-PCR) NEGATIVE Imaging Radiologist's Impressions: Impressions Head CT 11/30/24 09:56 IMPRESSION: No acute intracranial abnormality. Electronically signed by: Jose Bob MD 11/30/2024 11:57 AM EDT RP Pulmonary Perfusion Imaging 11/30/24 11:30 IMPRESSION: Indeterminate probability for pulmonary emboli. Electronically signed by: Jose Bob MD 11/30/2024 01:09 PM EDT RP Cervical Spine CT 11/30/24 11:38 IMPRESSION: Straightening of the normal cervical lordosis. No evidence of fracture or subluxation of the cervical spine. Degenerative changes as described. Electronically signed by: Jose Bob MD 11/30/2024 12:10 PM EDT RP Chest X-Ray 11/30/24 11:42 IMPRESSION: Airspace opacity in the right midlung zone most prominent in the infrahilar region. This may represent pneumonia, although a mass is not excluded. Follow-up is recommended to document resolution. Electronically signed by: Jose Bob MD 11/30/2024 01:04 PM EDT RP Assessment and Plan (1) Syncope: Status: Acute (2) Multiple falls: Status: Acute Plan 84/m with BP, HTN here with frequent fall and found to have Pneumonia and JESSIE Fall/syncope check orthostic monitor on tele PT eval Tylenol for street JESSIE, liekely pre-renal due to dehydration and probably contributed to fall IVF and repeat labs in the morning Acute lactic acidosis, not due to sepsis, likely from the fall CAP Ceftriaxone and Zithromax stated 11/30 COPD, no exacerbation continue combivent BPH on finesterid, and Flomax--combination can cause orthostatic hypotension, no evidence of orthostatic hypotension then continue Intermediate Prob for PE on random VQ, clinically no PE, normal O2 sat, now leg swelling, finding could be related to PNA, check D-dimer DVT prophylaxis: lovneox Full code Obs Quality Stroke Does the patient have a stroke diagnosis?: No VTE Prior VTE?: No VTE Risk Level:: Medical - moderate - high VTE Device Contraindication: N/A - Device Ordered VTE Drug Contraindication: N/A - Med Ordered
--- NOTE | 2024-11-30 14:35 | PHA.MEDREC ---
Addendum entered by Janae Toussaint, [facility] 12/01/24 11:30: Aliya Miguel messaged me to add finasteride back to his list per urology notes, she believes he is supposed to be on this Addendum entered by Jerry Vergara, [facility] 11/30/24 16:59: MED REC CHECKED BY [facility] Original Note: Pharmacy Consult ? Medication Reconciliation Pharmacy has completed the medication reconciliation. Spoke with patient to confirm his medications. Patient stated he is not taking any medications except for the Combivant Respimat inhaler and states he has not taken anything else in a long time . I asked about the Finasteride 5mg tab since that was last filled 11/24 and the patient did not know what I was talking about and stated saw his prostate Dr last week and they wanted a follow up in a few months but never said anything about prescribing Finasteride. He doesn't remember the last time he took his inhaler.
[2024-11-30 14:36] LABS: Reflex Lactate? Lactic Acid Added
[2024-11-30] MEDS: Azithromycin 500 MG in 0.9 % Sodium Chloride 250 ML 125 MG IV (14:50)
[2024-11-30] MEDS: Enoxaparin Sodium 30 MG/0.3 ML SYRINGE SUBCUT (15:16)
--- NOTE | 2024-11-30 15:22 | PC.NURSE ---
Sepsis worksheet submitted to [facility].
[2024-11-30 15:31] LABS: D Dimer High Sensitivity 734 NG/ML
[2024-11-30 15:37] LABS: ~Lactic Acid-LAB USE ONLY 1.4 mmol/L (0.5-2.0)
[2024-11-30] MEDS: Lactated Ringers 1,000 ML 100 ML IVCONT (17:01)
[2024-11-30 19:02] LABS: Appearance Urine Clear; Color Urine Yellow; Glucose Urine UA Negative (Negative); Leukocyte Esterase Urine Negative (Negative); Nitrite Urine Negative (Negative); PH 5.5 (5.0-9.0); Specific Gravity - Urine 1.025 (1.005-1.025); UMIC TRIGGER UACC YES; Urine Blood Negative (Negative); Urine Ketones Trace mg/dL (Negative); Urine Protein 30 (1+) mg/dL (Neg-Trace)
[2024-11-30 19:07] LABS: Bacteria Urine None Seen (None Seen); Hyaline Casts Urine 0-2 /LPF (0-2); RBC Urine 0-2 /HPF (0-2); WBC Urine 0-5 /HPF (0-5)
[2024-11-30] MEDS: Melatonin 3 MG TABLET 6 MG PO (22:25)
[2024-11-30] MEDS: Acetaminophen 325 MG TABLET 650 MG PO (22:25)
[2024-12-01] VITALS (8 sets, daily range): BP systolic 134–158; BP diastolic 60–70; PULSE 72–85; RESP 18–22; TEMP 36.9–37.3; O2SAT 93–100; BMI 19.0
[2024-12-01] MEDS: Lactated Ringers 1,000 ML 100 ML IVCONT ×2 (02:53→11:19)
[2024-12-01 07:02] LABS: Alanine Aminotransferase 10 U/L (0-40); Albumin Level 2.6 g/dL (3.5-5.0); Alkaline Phosphatase 48 U/L (39-117); Anion Gap 12 (12-20); Aspartate Amino Transferase 19 U/L (5-37); Bilirubin Total 0.6 mg/dL (0.0-1.0); Blood Urea Nitrogen 35 mg/dL (9-16); Calcium 8.3 mg/dL (8.4-10.2); Carbon Dioxide 20 mmol/L (22-29); Chloride 109 mmol/L (96-108); Creatinine Clr Calc Pharmacy 46.3; Estimated Glomerular Filt Rate > 60; Glucose Random 97 mg/dL (60-115); Potassium 3.5 mmol/L (3.3-5.1); Sodium 137 mmol/L (135-145)
[2024-12-01] MEDS: Albuterol/Iprat 2.5/0.5MG 3 ML AMPUL.NEB INHALE ×3 (07:14→20:00)
--- NOTE | 2024-12-01 09:10 | MHC.CM.PN ---
CM attempted to meet with Patient at bedside with the assist of a [facility] [employer] Infusion Specialist but Patient did not appear to completely understand the conversation. CM called Son/Aneesh @ [phone] but was only able to leave a detailed message, addressing the WRIGHT with him(original will be mailed to Aneesh and a copy has been placed on the chart). MARLENA awaits a return call from Aneesh to obtain Patient's social history. CM will follow.
--- NOTE | 2024-12-01 10:41 | MHC.CM.PN ---
Patient has been changed from OBSERVATION to INPATIENT. CM called Son/Aneesh @ [phone], but again, was only able to leave a detailed message. Original IMM will be mailed certified letter to Son and a copy has been placed on the chart. PT is recommending STR and CM will continue to follow.
[2024-12-01] MEDS: cefTRIAXone sodium 1 GM VIAL IVPUSH (11:00)
[2024-12-01] MEDS: Azithromycin 250 MG TABLET PO (11:00)
--- NOTE | 2024-12-01 11:12 | HO.PM.IMPN ---
Subjective Subjective Date of Service: 12/01/24 Interval History: seen and examined this morning follow up for pneumonia, dizziness - says he is always dizzy and always falls down feeling ok, poor historian Review of Systems Review of Systems: Yes all other systems are reviewed and are negative Constitutional Constitutional: Denies chills and Denies fever(s) Cardiovascular Cardiovascular: Denies chest pain and Denies palpitations Endocrine Endocrine: Denies palpitations Physical Exam Vital Signs: Vital Signs: Last Vital Signs Temp 98.5 F 12/01/24 08:00 Pulse 85 12/01/24 08:00 Resp 22 H 12/01/24 08:00 BP 143/67 H 12/01/24 08:00 Pulse Ox 94 12/01/24 08:00 O2 Del Method Room Air 12/01/24 08:00 BMI result Body Mass Index 16.7 Const: General: alert and awake Nutritional Appearance: thin Resp: Effort & Inspection: no respiratory distress and no use of accessory muscles Cardio: Rate: regular rate GI: Inspection: No distended Palpation (GI): Soft to palpation and nontender Neuro: General: moves all extremities Objective Data Active Medications Acetaminophen (Acetaminophen 325 Mg Tablet) 650 mg PO Q6H PRN PRN Reason: Pain, Mild 1-3,fever,headache Last Admin: 11/30/24 22:25 Dose: 650 mg Documented By: ESTEPHANIA Albuterol/Ipratropium (Albuterol/Iprat 2.5/0.5mg 3 Ml Ampul.Neb) 3 ml INHALE RQ6H WHILE AWAKE [facility] Last Admin: 12/01/24 07:14 Dose: 3 ml Documented By: MICHELET Azithromycin (Azithromycin 250 Mg Tablet) 250 mg PO Q24H [facility] Stop: 12/04/24 11:01 Calcium Carbonate (Calcium Carbonate 750 Mg Tab.Chew) 750 mg PO Q4H PRN PRN Reason: Heartburn Ceftriaxone Sodium (Ceftriaxone Sodium 1 Gm Vial) 1 gm IVPUSH Q24H [facility] Enoxaparin Sodium (Enoxaparin Sodium 30 Mg/0.3 Ml Syringe) 30 mg SUBCUT Q24H [facility] Last Admin: 11/30/24 15:16 Dose: 30 mg Documented By: GRIFFIN Lactated Ringer's (Lr) 1,000 mls @ 100 mls/hr IVCONT .Q10H [facility] Last Admin: 12/01/24 02:53 Dose: 100 mls/hr Documented By: ESTEPHANIA Magnesium Hydroxide (Milk Of Magnesia 30 Ml Oral.Susp) 30 ml PO DAILY PRN PRN Reason: Constipation Melatonin (Melatonin 3 Mg Tablet) 6 mg PO BEDTIME PRN PRN Reason: Insomnia Last Admin: 11/30/24 22:25 Dose: 6 mg Documented By: ESTEPHANIA Ondansetron HCl (Ondansetron Hcl 4 Mg/2 Ml Vial) 4 mg IVPUSH Q8H PRN PRN Reason: Nausea and Vomiting Sodium Chloride (0.9 % Sodium Chloride Flush 3 Ml Syringe) 3 ml IVFLUSH QSHIFT [facility] Last Admin: 12/01/24 01:04 Dose: Not Given Documented By: ESTEPHANIA Non-Admin Reason: IV Running Labs 11/30/24 10:50 12/01/24 06:15 Labs: Laboratory Results - last 24 hr 11/30/24 11/30/24 11/30/24 10:50 12:31 15:17 Neutrophils % (Manual) 81 H Band Neutrophils % 12 H Lymphocytes % (Manual) 3 L Monocytes % (Manual) 2 Eosinophils % (Manual) 1 Metamyelocytes % 1 Abs Neuts (Manual) 15.2 H Lymphocytes # (Manual) 0.5 L Monocytes # (Manual) 0.3 Eosinophils # (Manual) 0.2 Metamyelocytes # 0.2 Toxic Vacuolation PRESENT Dohle Bodies PRESENT Platelet Estimate DECREASED Plt Morphology Comment NORMAL RBC Morphology NORMAL D-Dimer High Sensitivty 734 Anion Gap 12 Estim Creat Clear Calc 22.0 Estimated GFR 39 Random Glucose 108 Lactic Acid 2.4 H* Lactic Acid F/U @ 2Hr 1.4 Calcium 9.0 D Magnesium 2.1 Total Bilirubin 0.6 Direct Bilirubin 0.3 AST 25 ALT 15 Alkaline Phosphatase 47 B-Natriuretic Peptide 147 H Total Protein 7.4 Albumin 3.2 L Urine Color Urine Appearance Urine pH Ur Specific [place] Urine Protein Urine Glucose (UA) Urine Ketones Urine Blood Urine Nitrite Ur Leukocyte Esterase Urine RBC Urine WBC Ur Squamous Epith Cells Urine Bacteria Hyaline Casts Influenza Type A (PCR) NEGATIVE Influenza Type B (PCR) NEGATIVE RSV RNA Qual (PCR) NEGATIVE SARS-CoV-2 RNA (RT-PCR) NEGATIVE 11/30/24 12/01/24 18:38 06:15 Neutrophils % (Manual) Band Neutrophils % Lymphocytes % (Manual) Monocytes % (Manual) Eosinophils % (Manual) Metamyelocytes % Abs Neuts (Manual) Lymphocytes # (Manual) Monocytes # (Manual) Eosinophils # (Manual) Metamyelocytes # Toxic Vacuolation Dohle Bodies Platelet Estimate Plt Morphology Comment RBC Morphology D-Dimer High Sensitivty Anion Gap 12 Estim Creat Clear Calc 46.3 Estimated GFR > 60 Random Glucose 97 Lactic Acid Lactic Acid F/U @ 2Hr Calcium 8.3 L D Magnesium Total Bilirubin 0.6 Direct Bilirubin AST 19 ALT 10 Alkaline Phosphatase 48 B-Natriuretic Peptide Total Protein 6.0 L Albumin 2.6 L Urine Color Yellow Urine Appearance Clear Urine pH 5.5 Ur Specific Overton 1.025 Urine Protein 30 (1+) H Urine Glucose (UA) Negative Urine Ketones Trace Urine Blood Negative Urine Nitrite Negative Ur Leukocyte Esterase Negative Urine RBC 0-2 Urine WBC 0-5 Ur Squamous Epith Cells 3-5 Urine Bacteria None Seen Hyaline Casts 0-2 Influenza Type A (PCR) Influenza Type B (PCR) RSV RNA Qual (PCR) SARS-CoV-2 RNA (RT-PCR) Assessment and Plan (1) Pneumonia: Status: Acute (2) Multiple falls: Status: Acute Plan This is an 84/m with BP, HTN here with frequent fall and found to have Pneumonia and JESSIE Fall/possible syncope Orthostatic blood pressures negative Patient states he is always dizzy and falls frequently - dizziness and falls documented in outpatient notes in 01/2024 monitor on tele Seen by Physical therapy, recommended short-term rehab JESSIE Resolved with IV fluid likely pre-renal due to dehydration and probably contributed to fall Acute lactic acidosis, not due to sepsis, likely from fall CAP no sepsis Continue Ceftriaxone and Zithromax stated 11/30 Imaging can not rule out mass-recommend outpatient follow-up imaging after completion of treatment Had 1 isolated episode of hypoxia, now on room air Blood cultures pending repeat cbc to trend wbc COPD, no exacerbation continue home inhalers BPH On finasteride at baseline, was not included in med reconciliation because patient says that he has not been taking it but upon review of urology notes it was recently renewed Orthostatic blood pressures negative, will resume Indeterminate Probability for PE on VQ scan clinically no PE, normal O2 sat, no leg swelling, finding could be related to PNA DVT prophylaxis: lovneox Full code dispo - STR Quality Stroke Does the patient have a stroke diagnosis?: No VTE Prior VTE?: No VTE Risk Level:: Medical - moderate - high VTE Device Contraindication: N/A - Device Ordered VTE Drug Contraindication: N/A - Med Ordered
[2024-12-01 12:43] LABS: Hematocrit 30.3 % (42.0-52.0); Hemoglobin 10.5 g/dl (14.0-18.0); Mean Corpuscular HGB Conc 34.7 g/dl (31.0-36.0); Mean Corpuscular Hemoglobin 31.7 pg (27.0-33.0); Mean Corpuscular Volume 91.5 fL (80.0-98.0); Platelet Count 149 X10*3/uL (160-400); Red Blood Count 3.31 X10*6/uL (4.60-5.80); Red Cell Distribution Width 13.8 % (11.0-16.0); White Blood Count 13.4 X10*3/uL (4.8-10.8)
[2024-12-01] MEDS: Enoxaparin Sodium 30 MG/0.3 ML SYRINGE SUBCUT (15:03)
[2024-12-01] MEDS: Acetaminophen 325 MG TABLET 650 MG PO (20:34)
[2024-12-01] MEDS: Melatonin 3 MG TABLET 6 MG PO (20:35)
[2024-12-02] VITALS (14 sets, daily range): BP systolic 131–197; BP diastolic 80–94; PULSE 68–105; RESP 16–28; TEMP 36.3–37.7; O2SAT 89–99
[2024-12-02] MEDS: Albuterol/Iprat 2.5/0.5MG 3 ML AMPUL.NEB INHALE ×3 (07:31→19:19)
[2024-12-02] MEDS: Finasteride 5 MG TABLET PO (09:09)
[2024-12-02] MEDS: 0.9 % Sodium Chloride Flush 3 ML SYRINGE IVFLUSH ×2 (09:11→16:14)
[2024-12-02] MEDS: Azithromycin 250 MG TABLET PO (10:27)
[2024-12-02] MEDS: cefTRIAXone sodium 1 GM VIAL IVPUSH (10:32)
--- NOTE | 2024-12-02 10:33 | MHC.CM.PN ---
Addendum entered by Shayla Cuellar 12/02/24 12:55: CM did receive a return call from Son/Aneesh and he is in agreement with STR/SNF in the [facility]. Currently, the only bed offer is @ [facility] in [place]; CM awaits a return call from Son to discuss dc options. CM will follow. Original Note: Patient presents with s/s of Confusion. Per MD in [facility]OUN[facility], Patient is medically cleared for dc and PT is recommending STR. Per MD's request, CM attempted to reach out to Son/decision-maker/Aneesh @ listed # to determine if Son is in agreement with STR, but CM was only able to leave a message, strongly requesting a return call.CM awaits a return call from Aneesh.
--- NOTE | 2024-12-02 13:15 | P.PNIM_ITS ---
Subjective Subjective Date of Service: 12/02/24 Interval History: Seen and examined this morning Follow-up for pneumonia Reports some pain associated with cough, no shortness a breath, no fever Review of Systems Review of Systems: Yes all other systems are reviewed and are negative Constitutional Constitutional: Denies chills and Denies fever(s) Cardiovascular Cardiovascular: Denies chest pain, Denies palpitations and Denies dyspnea Respiratory Respiratory: Reports cough and Denies dyspnea Endocrine Endocrine: Denies palpitations Physical Exam 2 Vital Signs: Vital Signs: Last Vital Signs Temp 97.3 F 12/02/24 11:27 Pulse 90 12/02/24 11:46 Resp 20 12/02/24 11:27 BP 131/80 12/02/24 11:46 Pulse Ox 95 12/02/24 11:27 O2 Del Method Room Air 12/02/24 11:27 BMI result Body Mass Index 19.0 Const: General: cooperative Nutritional Appearance: thin Resp: Effort & Inspection: normal respiratory effort, able to speak in complete sentences, no respiratory distress and no use of accessory muscles Cardio: Rate: regular rate GI: Inspection: No distended Palpation (GI): Soft to palpation and nontender Neuro: General: moves all extremities Extrem: General: Yes no pedal edema Objective Data Active Medications Acetaminophen (Acetaminophen 325 Mg Tablet) 650 mg PO Q6H PRN PRN Reason: Pain, Mild 1-3,fever,headache Last Admin: 12/01/24 20:34 Dose: 650 mg Documented By: DEBBIE Albuterol/Ipratropium (Albuterol/Iprat 2.5/0.5mg 3 Ml Ampul.Neb) 3 ml INHALE RQ6H WHILE AWAKE [facility] Last Admin: 12/02/24 07:31 Dose: 3 ml Documented By: VIKA Azithromycin (Azithromycin 250 Mg Tablet) 250 mg PO Q24H [facility] Stop: 12/04/24 11:01 Last Admin: 12/02/24 10:27 Dose: 250 mg Documented By: BRUCE Calcium Carbonate (Calcium Carbonate 750 Mg Tab.Chew) 750 mg PO Q4H PRN PRN Reason: Heartburn Ceftriaxone Sodium (Ceftriaxone Sodium 1 Gm Vial) 1 gm IVPUSH Q24H [facility] Last Admin: 12/02/24 10:32 Dose: 1 gm Documented By: BRUCE Enoxaparin Sodium (Enoxaparin Sodium 30 Mg/0.3 Ml Syringe) 30 mg SUBCUT Q24H [facility] Last Admin: 12/01/24 15:03 Dose: 30 mg Documented By: BRUCE Finasteride (Finasteride 5 Mg Tablet) 5 mg PO DAILY [facility] Last Admin: 12/02/24 09:09 Dose: 5 mg Documented By: BRUCE Guaifenesin/Codeine Phosphate (Guaifen/Codeine Sf 200/20/10ml 10 Ml Liquid) 10 ml PO Q6H PRN PRN Reason: Cough Magnesium Hydroxide (Milk Of Magnesia 30 Ml Oral.Susp) 30 ml PO DAILY PRN PRN Reason: Constipation Melatonin (Melatonin 3 Mg Tablet) 6 mg PO BEDTIME PRN PRN Reason: Insomnia Last Admin: 12/01/24 20:35 Dose: 6 mg Documented By: DEBBIE Ondansetron HCl (Ondansetron Hcl 4 Mg/2 Ml Vial) 4 mg IVPUSH Q8H PRN PRN Reason: Nausea and Vomiting Sodium Chloride (0.9 % Sodium Chloride Flush 3 Ml Syringe) 3 ml IVFLUSH QSHIFT [facility] Last Admin: 12/02/24 09:11 Dose: 3 ml Documented By: BRUCE Labs 12/01/24 12:19 12/01/24 06:15 Microbiology Microbiology Results: Microbiology 11/30/24 12:31 Blood Culture - Preliminary Blood - Venous No growth after 24 hours. 11/30/24 12:31 Blood Culture - Preliminary Blood - Venous No growth after 24 hours. Assessment and Plan (1) Pneumonia: Status: Acute Plan This is an 84/m with BP, HTN here with frequent fall and found to have Pneumonia and JESSIE Fall/possible syncope Orthostatic blood pressures negative Patient states he is always dizzy and falls frequently - dizziness and falls documented in outpatient notes in 01/2024 Seen by Physical therapy, recommended short-term rehab JESSIE Resolved with IV fluid likely pre-renal due to dehydration and probably contributed to fall Acute lactic acidosis, not due to sepsis, likely from fall CAP no sepsis Continue Ceftriaxone and Zithromax stated 11/30 Imaging can not rule out mass-recommend outpatient follow-up imaging after completion of treatment Had 1 isolated episode of hypoxia, now on room air Blood cultures negative wbc trendng down COPD, no exacerbation continue home inhalers BPH On finasteride at baseline, was not included in med reconciliation because patient says that he has not been taking it but upon review of urology notes it was recently renewed Orthostatic blood pressures negative, will resume Indeterminate Probability for PE on VQ scan clinically no PE, normal O2 sat, no leg swelling, finding could be related to PNA DVT prophylaxis: Lovenox Full code dispo - STR Quality Stroke Does the patient have a stroke diagnosis?: No VTE Prior VTE?: No VTE Risk Level:: Medical - moderate - high VTE Device Contraindication: N/A - Device Ordered VTE Drug Contraindication: N/A - Med Ordered
[2024-12-02] MEDS: Enoxaparin Sodium 30 MG/0.3 ML SYRINGE SUBCUT (15:38)
--- NOTE | 2024-12-02 15:57 | MHC.CM.PN ---
MARLENA returned a call from Megan @ [facility] ([phone], [phone], but was only able to leave a message (assuming there is a question regarding the MDS that was faxed over);MARLENA will continue to follow.
[2024-12-02] MEDS: amLODIPine Besylate 5 MG TABLET PO (16:39)
[2024-12-03] VITALS (9 sets, daily range): BP systolic 129–168; BP diastolic 70–91; PULSE 73–97; RESP 16–18; TEMP 36.7–37.3; O2SAT 93–97
[2024-12-03] MEDS: 0.9 % Sodium Chloride Flush 3 ML SYRINGE IVFLUSH ×4 (00:54→19:55)
[2024-12-03] MEDS: Melatonin 3 MG TABLET 6 MG PO (00:55)
[2024-12-03] MEDS: Acetaminophen 325 MG TABLET 650 MG PO (00:55)
[2024-12-03] MEDS: Albuterol/Iprat 2.5/0.5MG 3 ML AMPUL.NEB INHALE ×3 (07:32→19:28)
[2024-12-03] MEDS: Finasteride 5 MG TABLET PO (07:51)
[2024-12-03] MEDS: amLODIPine Besylate 5 MG TABLET PO (07:51)
--- NOTE | 2024-12-03 08:45 | MHC.CM.PN ---
PT UNABLE TO DC TO STR TODAY ON HIS MH BENEFIT HIS MDS WAS NOT APPROVED BY [facility] DUE TO LACK OF LEVEL I PASRR. CM SPOKE TO [facility]IA[facility] WHO INDICATED SHE WOULD BE ABLE TO ACCEPT PT TOMORROW ON HIS MCR BENEFIT THE MDS WOULD NOT LONGER BE REQUIRED. DCP: DC TO [facility] TOMORROW FOR STR VIA BLS
[2024-12-03] MEDS: cefTRIAXone sodium 1 GM VIAL IVPUSH (13:07)
[2024-12-03] MEDS: Azithromycin 250 MG TABLET PO (13:07)
--- NOTE | 2024-12-03 15:12 | HO.PM.IMPN ---
Subjective Subjective Date of Service: 12/03/24 Interval History: seen and examined this morning follow up for pneumonia blood pressure elevated yesterday reporting pain with cough Review of Systems Review of Systems: Yes all other systems are reviewed and are negative Constitutional Constitutional: Denies chills and Denies fever(s) Cardiovascular Cardiovascular: Denies palpitations and Denies dyspnea Respiratory Respiratory: Reports cough and Denies dyspnea Gastrointestinal Gastrointestinal: Denies abdominal pain Endocrine Endocrine: Denies palpitations Physical Exam Vital Signs: Vital Signs: Last Vital Signs Temp 98.2 F 12/03/24 11:09 Pulse 88 12/03/24 11:09 Resp 18 12/03/24 11:09 BP 168/77 H 12/03/24 11:09 Pulse Ox 97 12/03/24 11:09 O2 Del Method Room Air 12/03/24 11:09 BMI result Body Mass Index 19.0 Const: General: cooperative, alert and awake Nutritional Appearance: thin Resp: Effort & Inspection: normal respiratory effort, able to speak in complete sentences, no respiratory distress and no use of accessory muscles Cardio: Rate: regular rate GI: Inspection: No distended Palpation (GI): Soft to palpation and nontender Neuro: General: moves all extremities Extrem: General: Yes no pedal edema Objective Data Active Medications Acetaminophen (Acetaminophen 325 Mg Tablet) 650 mg PO Q6H PRN PRN Reason: Pain, Mild 1-3,fever,headache Last Admin: 12/03/24 00:55 Dose: 650 mg Documented By: KLEVER Albuterol/Ipratropium (Albuterol/Iprat 2.5/0.5mg 3 Ml Ampul.Neb) 3 ml INHALE RQ6H WHILE AWAKE [facility] Last Admin: 12/03/24 15:11 Dose: 3 ml Documented By: VIKA Amlodipine Besylate (Amlodipine Besylate 5 Mg Tablet) 5 mg PO DAILY [facility]; Protocol Last Admin: 12/03/24 07:51 Dose: 5 mg Documented By: GERTRUDE Azithromycin (Azithromycin 250 Mg Tablet) 250 mg PO Q24H [facility] Stop: 12/04/24 11:01 Last Admin: 12/03/24 13:07 Dose: 250 mg Documented By: GERTRUDE Calcium Carbonate (Calcium Carbonate 750 Mg Tab.Chew) 750 mg PO Q4H PRN PRN Reason: Heartburn Ceftriaxone Sodium (Ceftriaxone Sodium 1 Gm Vial) 1 gm IVPUSH Q24H [facility] Last Admin: 12/03/24 13:07 Dose: 1 gm Documented By: GERTRUDE Enoxaparin Sodium (Enoxaparin Sodium 30 Mg/0.3 Ml Syringe) 30 mg SUBCUT Q24H [facility] Last Admin: 12/02/24 15:38 Dose: 30 mg Documented By: MICHELLEOTPANoam Finasteride (Finasteride 5 Mg Tablet) 5 mg PO DAILY [facility] Last Admin: 12/03/24 07:51 Dose: 5 mg Documented By: GERTRUDE Guaifenesin/Codeine Phosphate (Guaifen/Codeine Sf 200/20/10ml 10 Ml Liquid) 10 ml PO Q6H PRN PRN Reason: Cough Magnesium Hydroxide (Milk Of Magnesia 30 Ml Oral.Susp) 30 ml PO DAILY PRN PRN Reason: Constipation Melatonin (Melatonin 3 Mg Tablet) 6 mg PO BEDTIME PRN PRN Reason: Insomnia Last Admin: 12/03/24 00:55 Dose: 6 mg Documented By: KLEVER Ondansetron HCl (Ondansetron Hcl 4 Mg/2 Ml Vial) 4 mg IVPUSH Q8H PRN PRN Reason: Nausea and Vomiting Sodium Chloride (0.9 % Sodium Chloride Flush 3 Ml Syringe) 3 ml IVFLUSH QSHIFT [facility] Last Admin: 12/03/24 07:51 Dose: 3 ml Documented By: GERTRUDE Labs 12/01/24 12:19 12/01/24 06:15 Microbiology Microbiology Results: Microbiology 11/30/24 12:31 Blood Culture - Preliminary Blood - Venous No growth after 48 hours. 11/30/24 12:31 Blood Culture - Preliminary Blood - Venous No growth after 48 hours. Assessment and Plan (1) Multiple falls: Status: Acute (2) Pneumonia: Status: Acute (3) Hypertension: Status: Acute Plan This is an 84/m with BP, HTN here with frequent fall and found to have Pneumonia and JESSIE Fall/possible syncope Orthostatic blood pressures negative Patient states he is always dizzy and falls frequently - dizziness and falls documented in outpatient notes in 01/2024 Seen by Physical therapy, recommended short-term rehab JESSIE Resolved with IV fluid likely pre-renal due to dehydration and probably contributed to fall Acute lactic acidosis, not due to sepsis, likely from fall uncontrolled HTN not on bp meds at baseline started on norvasc follow bp closely CAP no sepsis Continue Ceftriaxone and Zithromax stated 11/30 Imaging can not rule out mass-recommend outpatient follow-up imaging after completion of treatment Had 1 isolated episode of hypoxia, now on room air Blood cultures negative wbc trending down COPD, no exacerbation continue home inhalers BPH On finasteride at baseline, was not included in med reconciliation because patient says that he has not been taking it but upon review of urology notes it was recently renewed Orthostatic blood pressures negative, will resume Indeterminate Probability for PE on VQ scan clinically no PE, normal O2 sat, no leg swelling, finding could be related to PNA moderate protein calorie malnutrition bmi 19, loss of muscle mass, subq fat dietary supplements DVT prophylaxis: Lovenox Full code dispo - STR requires ongoing inpatient stay for close monitoring of blood pressure, safe disposition with high risk for falls Quality Stroke Does the patient have a stroke diagnosis?: No VTE Prior VTE?: No VTE Risk Level:: Medical - moderate - high VTE Device Contraindication: N/A - Device Ordered VTE Drug Contraindication: N/A - Med Ordered
[2024-12-03] MEDS: Enoxaparin Sodium 30 MG/0.3 ML SYRINGE SUBCUT (17:03)
[2024-12-04] VITALS (9 sets, daily range): BP systolic 136–185; BP diastolic 68–84; PULSE 52–98; RESP 16–20; TEMP 36.3–37.7; O2SAT 94–98
[2024-12-04] MEDS: Albuterol/Iprat 2.5/0.5MG 3 ML AMPUL.NEB INHALE ×3 (07:35→19:58)
--- NOTE | 2024-12-04 09:28 | PM.DS ---
DS: Providers Provider Date of Service: 12/04/24 Date of admission: 12/01/24 09:01 Date of discharge: 12/04/24 Primary care physician: Argentina Pierre MD Attending physician on discharge: [facility] Discharging clinician: Aliya Rivera DS: Diagnosis Discharge Diagnosis (1) Multiple falls: Status: Acute (2) Pneumonia: Status: Acute (3) Hypertension: Status: Acute DS: Summary Hospital Course Hospital Course: From H&P on the day of admission 84 year old male with HTN,COPD, BPH recurrent falls and syncope etiology unclear. He presents with fals again, last one being just today and sustained left posterior scalp hematoma, he's not clear of passing out, he also c/o right should and scapula area pain as result of the fall. CT of the headm C-spine unremarkable. CXR show possible pneumonia, a VQ scan show intermediate prob for PE. D-dimer not done. WBC is 16, he is given ceftriaxone and Azithromycin for pneumonia. He has JESSIE with creatine of 1.69 this is new Fall/possible syncope Orthostatic blood pressures negative Patient states he is always dizzy and falls frequently - dizziness and falls documented in outpatient notes in 01/2024. Seen by Physical therapy, recommended short-term rehab JESSIE Resolved with IV fluid. likely pre-renal due to dehydration and probably contributed to fall Acute lactic acidosis, not due to sepsis, likely from fall uncontrolled HTN not on bp meds at baseline. started on norvasc. may need further titration but would avoid lowering blood pressure too much to avoid contributing to fall risk. CAP no sepsis; Treated with IV Ceftriaxone and Zithromax stated 11/30. complted azithromycin, 4 more days of po ceftin. Imaging can not rule out mass-recommend outpatient follow-up imaging after completion of treatment. Had 1 isolated episode of hypoxia, now on room air. Blood cultures negative. Indeterminate Probability for PE on VQ scan. clinically no PE, normal O2 sat, no leg swelling, finding could be related to PNA. COPD, no exacerbation continue home inhalers BPH continue finasteride moderate protein calorie malnutrition. dietary supplements Time Attestation Discharge Coordination Time (in mins): 35 Quality: Safe Use of Opioids Does Pt have an Active Cancer Diagnosis on the Problem List?: No Quality: Stroke Does the patient have a stroke diagnosis?: No Physical Exam Vital Signs: Vital Signs: Last Vital Signs Temp 97.4 F 12/04/24 07:25 Pulse 81 12/04/24 07:35 Resp 16 12/04/24 07:35 BP 162/75 H 12/04/24 07:25 Pulse Ox 95 12/04/24 07:25 O2 Del Method Room Air 12/04/24 07:25 BMI result Body Mass Index 19.0 Const: Other: frail elderlu male resting in bed comfortably General: cooperative, comfortable, no acute distress, alert and awake Nutritional Appearance: thin Orientation/consciousness: patient oriented x3 Resp: Effort & Inspection: normal respiratory effort, able to speak in complete sentences, no respiratory distress and no use of accessory muscles Auscultation: clear to auscultation bilaterally Cardio: Rate: regular rate GI: Inspection: No distended Palpation (GI): Soft to palpation and nontender Neuro: General: patient oriented x3 Extrem: General: Yes no pedal edema DS: Data Data Completed and Pending Labs on day of discharge: Preliminary micro results at discharge 11/30/24 12:31 Blood Culture - Preliminary Blood - Venous No growth after 48 hours. 11/30/24 12:31 Blood Culture - Preliminary Blood - Venous No growth after 48 hours. Discharge Plan Discharge Anticipated Discharge Date/Time: 12/04/24 09:34 Patient Disposition: Xfer SNF Discharge Diagnosis: Pneumonia JESSIE Recurrent falls Hypertension Referrals: Argentina Pierre MD [Primary Care Provider] - 1 Week Discharge Medications: New amlodipine 5 mg Tablet 5 mg PO DAILY Qty: 30 0RF Protocol: Hold for SBP< HOLD for SBP < : 90 cefuroxime axetil 250 mg tablet 250 mg PO Q12H 4 Days Qty: 8 0RF Continued Combivent Respimat 20-100 mcg/actuation mist 1 puff inhalation Q6H Qty: 4 6RF finasteride 5 mg Tablet 5 mg PO DAILY Discharge Orders: Discharge Order (Routine); Ordered 12/04/24 Ordered By: Aliya Rivera Activity on Discharge: As tolerated Stand Alone Forms: Patient Portal Discharge page Print Language: Mexican Care Plan Goals: See below Health Concerns: Frequent falls Pneumonia Elevated blood pressure JESSIE-resolved. Kidney function has returned back to baseline Plan of Treatment: You have been started on Norvasc to control blood pressure pneumonia - complete course of antibiotics, 4 more days of ceftin recommend to repeat imaging to ensure resolution of infection/rule out mass Assessment: see discharge summary
[2024-12-04] MEDS: amLODIPine Besylate 5 MG TABLET PO (09:57)
[2024-12-04] MEDS: Azithromycin 250 MG TABLET PO (09:57)
[2024-12-04] MEDS: Finasteride 5 MG TABLET PO (09:57)
[2024-12-04] MEDS: guaiFEN/Codeine SF 200/20/10ML 10 ML LIQUID PO (10:02)
[2024-12-04] MEDS: 0.9 % Sodium Chloride Flush 3 ML SYRINGE IVFLUSH (10:04)
--- NOTE | 2024-12-04 12:04 | MHC.CM.PN ---
Addendum entered by Fouzia Ulrich 12/04/24 12:37: CM SPOKE TO PTS SON, JOSÉ MIGUEL, VIA T/C, HE IS AWARE OF THE DC PLAN AND TIME Original Note: PT WILL DC TO [facility] TODAY [facility]IA [facility] AT 1600 HOURS
[2024-12-04] MEDS: cefuroxime axetiL 250 MG TABLET PO (18:33)
[2024-12-05 03:17] VITALS: BP 158/72; PULSE 89; RESP 18; TEMP 38; O2SAT 94
[2024-12-05] MEDS: cefuroxime axetiL 250 MG TABLET PO (05:06)
[2024-12-05 07:31] VITALS: BP 140/68; PULSE 89; RESP 18; TEMP 37.6; O2SAT 95
[2024-12-05] MEDS: amLODIPine Besylate 5 MG TABLET PO (08:30)
[2024-12-05] MEDS: Finasteride 5 MG TABLET PO (08:30)
--- NOTE | 2024-12-05 11:11 | MHC.CM.PN ---
CM met with Patient at bedside and addressed IMM with him, providing Patient with the original and a copy has been placed on the chart. Patient has declined the bed offer at [facility]; he wants to go home. MARLENA spoke with Son/HCP/Aneesh, at listed # and he is in agreement with a home dc today. Aneesh will transport Patient to home today at 2PM; EXERCISE PHYSIOLOGIST & RN are aware.A referral has been made to [facility] for home services.
[2024-12-05 11:59] VITALS: BP 135/74; PULSE 85; RESP 16; TEMP 36.7; O2SAT 94
--- NOTE | 2024-12-05 12:05 | PM.DS ---
DS: Providers Provider Date of Service: 12/05/24 Date of admission: 12/01/24 09:01 Date of discharge: 12/05/24 Primary care physician: Argentina Pierre MD DS: Diagnosis Discharge Diagnosis (1) Multiple falls: Status: Acute (2) Pneumonia: Status: Acute (3) Hypertension: Status: Acute DS: Summary Hospital Course Hospital Course: From H&P on the day of admission 84 year old male with HTN,COPD, BPH recurrent falls and syncope etiology unclear. He presents with fals again, last one being just today and sustained left posterior scalp hematoma, he's not clear of passing out, he also c/o right should and scapula area pain as result of the fall. CT of the headm C-spine unremarkable. CXR show possible pneumonia, a VQ scan show intermediate prob for PE. D-dimer not done. WBC is 16, he is given ceftriaxone and Azithromycin for pneumonia. He has JESSIE with creatine of 1.69 this is new Fall/possible syncope Orthostatic blood pressures negative Patient states he is always dizzy and falls frequently - dizziness and falls documented in outpatient notes in 01/2024. Seen by Physical therapy, recommended short-term rehab but patient and family want him home, will dc with services JESSIE Resolved with IV fluid. likely pre-renal due to dehydration and probably contributed to fall Acute lactic acidosis, not due to sepsis, likely from fall uncontrolled HTN not on bp meds at baseline. started on norvasc. may need further titration but would avoid lowering blood pressure too much to avoid contributing to fall risk. CAP no sepsis; Treated with IV Ceftriaxone and Zithromax stated 11/30. complted azithromycin, 4 more days of po ceftin. Imaging can not rule out mass-recommend outpatient follow-up imaging after completion of treatment. Had 1 isolated episode of hypoxia, now on room air. Blood cultures negative. Indeterminate Probability for PE on VQ scan. clinically no PE, normal O2 sat, no leg swelling, finding could be related to PNA. COPD, no exacerbation continue home inhalers BPH continue finasteride moderate protein calorie malnutrition. dietary supplements Time Attestation Discharge Coordination Time (in mins): 42 Quality: Safe Use of Opioids Does Pt have an Active Cancer Diagnosis on the Problem List?: No Quality: Stroke Does the patient have a stroke diagnosis?: No Physical Exam Vital Signs: Vital Signs: Last Vital Signs Temp 98.1 F 12/05/24 11:59 Pulse 85 12/05/24 11:59 Resp 16 12/05/24 11:59 BP 135/74 12/05/24 11:59 Pulse Ox 94 12/05/24 11:59 O2 Del Method Room Air 12/05/24 11:59 BMI result Body Mass Index 19.0 Appearing in no acute distress head is normocephalic atraumatic eyes pupils are PERRLA sclera is anicteric mouth throat mucous membranes are intact and moist neck is supple no lymphadenopathy, no JVD noted lung sounds are clear to auscultation heart regular rate rhythm, clear S1, S2 positive bowel sounds, abdomen is soft, nontender neuro patient is alert x3, no focal deficits DS: Data Data Completed and Pending Labs on day of discharge: Preliminary micro results at discharge 11/30/24 12:31 Blood Culture - Preliminary Blood - Venous No growth after 48 hours. 11/30/24 12:31 Blood Culture - Preliminary Blood - Venous No growth after 48 hours. Discharge Plan Discharge Anticipated Discharge Date/Time: 12/05/24 12:04 Patient Disposition: Home Health Service Discharge Diagnosis: Pneumonia JESSIE Recurrent falls Hypertension Referrals: [facility] [Outside] - 1 Week Argentina Pierre MD [Primary Care Provider] - 1 Week Discharge Medications: New amlodipine 5 mg Tablet 5 mg PO DAILY Qty: 30 0RF Protocol: Hold for SBP< HOLD for SBP < : 90 cefuroxime axetil 250 mg tablet 250 mg PO Q12H 4 Days Qty: 8 0RF Continued Combivent Respimat 20-100 mcg/actuation mist 1 puff inhalation Q6H Qty: 4 6RF finasteride 5 mg Tablet 5 mg PO DAILY Discharge Orders: Discharge Order (Routine); Ordered 12/05/24 Ordered By: Carolann Contreras Diet: Advance to usual diet Activity on Discharge: As tolerated Stand Alone Forms: Patient Portal Discharge page Print Language: Kinyarwanda Care Plan Goals: See below Health Concerns: Frequent falls Pneumonia Elevated blood pressure JESSIE-resolved. Kidney function has returned back to baseline Plan of Treatment: You have been started on Norvasc to control blood pressure pneumonia - complete course of antibiotics, 4 more days of ceftin recommend to repeat imaging to ensure resolution of infection/rule out mass Assessment: see discharge summary Discharge Date/Time: 12/05/24 14:31
--- NOTE | 2024-12-05 12:10 | W.MHC.F2F ---
Service Date Service Date: 12/05/24 Encounter Date of encounter: 12/05/24 Reasons for Services Signs and symptoms assessed: JESSIE Fall Reason for physical therapy: home safety and mobility Homebound: Leaving the home is medically contraindicated at this time without the asist of a device and/or another person due th the listed conditions above and below. Reason homebound: unsteady gait / fall risk and weakness related to hospital stay Certification: Based on the above findings, I certify that this patient is confined to the home and needs intermittent mcc care, physical therapy and/or speech therapy, or continues to need occupational therapy. The patient is under my care, and I have initiated the establishment of the plan of care. The patient will be followed by a physician who will periodically review the plan of care. Time Spent With Patient Time: Total time managing care of this patient today ____ minutes.
== END 2024-12-05 14:31 | disposition home health service (06) | DRG 194 ==
LOC: HO.ED 13:35 → HO.EDOVER 15:03 → HO.IMC 19:13
PROVIDERS: Physician Assistant; Physician Assistant Medical; Admitting Provider Internal Medicine; Emergency Provider Emergency Medicine; PCP Internal Medicine; Visit Provider Nurse Practitioner Acute Care
DX: J18.9 Pneumonia, unspecified organism (principal); E44.0 Moderate protein-calorie malnutrition; E87.21 Acute metabolic acidosis; J44.0 Chronic obstructive pulmonary disease with (acute) lower respiratory infection; Z68.1 Body mass index [BMI] 19.9 or less, adult; I10 Essential (primary) hypertension; R55 Syncope and collapse; M25.511 Pain in right shoulder; W19.XXXA Unspecified fall, initial encounter; R29.6 Repeated falls; N40.0 Benign prostatic hyperplasia without lower urinary tract symptoms; Z91.81 History of falling; E86.0 Dehydration; R09.02 Hypoxemia; Z20.822 Contact with and (suspected) exposure to COVID-19; Z79.899 Other long term (current) drug therapy
CPT/HCPCS: 0241U; 36415; 70450; 71045; 72125; 78580; 80048; 80053; 80076; 81001; 81003; 83605; 83735; 83880; 84484; 85007; 85025; 85027; 85379; 85610; 87040; 93005; 97162; 99222; 99285; A9540; J0456; J0696; J1650; J7120

== ENCOUNTER → 2024-11-30 09:56 | Outpatient (BNV) | payer MEDICARE, MEDICAID, SELFPAY | PROVIDERS: Admitting Provider Internal Medicine; Emergency Provider Emergency Medicine; PCP Internal Medicine; Visit Provider Internal Medicine Cardiovascular Disease | DX: R55 Syncope and collapse (principal) | CPT/HCPCS: 93010 ==

== ENCOUNTER → 2024-11-30 09:56 | Outpatient (BNV) | payer MEDICARE, MEDICAID, SELFPAY | PROVIDERS: Emergency Provider Emergency Medicine; PCP Internal Medicine; Visit Provider Radiology Diagnostic Radiology | DX: R55 Syncope and collapse (principal); R05.9 Cough, unspecified; R07.9 Chest pain, unspecified; Z03.89 Encounter for observation for other suspected diseases and conditions ruled out; W01.198A Fall on same level from slipping, tripping and stumbling with subsequent striking against other object, initial encounter | CPT/HCPCS: 70450; 71045; 72125; 78580 ==

== ENCOUNTER → 2024-12-01 09:01 | Outpatient (BNV) | payer MEDICARE, MEDICAID, SELFPAY | PROVIDERS: Admitting Provider Internal Medicine; Emergency Provider Emergency Medicine; PCP Internal Medicine; Visit Provider Physician Assistant Medical | DX: J18.9 Pneumonia, unspecified organism (principal) | CPT/HCPCS: 99231; 99232 ==

== ENCOUNTER → 2024-12-13 23:59 | Outpatient (BNV) | payer MEDICARE, MEDICAID, SELFPAY | PROVIDERS: PCP Internal Medicine; Visit Provider Internal Medicine | DX: J18.9 Pneumonia, unspecified organism (principal); R29.6 Repeated falls; J44.9 Chronic obstructive pulmonary disease, unspecified | CPT/HCPCS: G0180 ==

== ENCOUNTER 2025-04-05 12:33 | Outpatient (AMB) | payer MEDICARE, MEDICAID, SELFPAY ==
--- NOTE | 2025-04-05 12:56 | A.OFFVIS_ITS ---
Intake Vital Signs 04/05/25 13:03 Height 5 ft 4 in Weight 97 lb 8 oz BMI 16.7 BP 130/66 Blood Pressure Location Lt brachial Position Sitting Pulse 81 Pulse Source Pulse Oximeter Temp 97.9 F Temp Source Oral Pulse Oximetry (%) 94 Oxygen Delivery Method Room Air Intake Visit Reasons: MWV Intake Note: patient is here for MWV visit Back Up Worker Required: No Allergies No Known Allergies Allergy (Verified 04/10/25 00:28) Medication List - Last Reconciled 04/10/25 by Argentina Pierre MD amlodipine 5 mg See Protocol PO DAILY Combivent Respimat 20-100 mcg/actuation (ipratropium-albuterol) 1 puff inhalation Q6H NS finasteride 5 mg PO DAILY Do you need a note to return to daycare/school/sports/work: No HPI MWV HPI Details AWV ? 84 year old male , with history of normocytic normochromic anemia, benign prostatic hyperplasia, hearing impairment, COPD, hypertension, presents for his Annual Wellness Visit, initial visit.? Has not had any Coreg screening done in the past. Declines getting any vaccines. He did have a fasting lipid panel and fasting blood sugar level checked earlier this year which came back within normal limits. He is noted to be underweight with a BMI of 16. Patient states that he does eats whenever he is hungry. Denies any lightheadedness, no chest pain or shortness of breath, , no syncopal attacks in the past. ? Medical / Social History Reviewed? Past Medical History ?Yes . ? [place] of Care / Care Team list updated ?Yes . ? Surgical/Hospitalization History ?Yes . ? Current Medications (including OTC and supplements) ?Yes . ? Family History ?Yes . ? Tobacco Control form ?Yes . ? AUDIT-C (Alcohol use) form ?Yes . ? Illicit drug use in Social History ?Yes . ? Current diagnosis of depression? ?No ? Appropriate PHQ2/PHQ9 completed ?Yes . ? Data entered by ?Grapple Yarder Operator and reviewed by provider ? Fall Risk ? Fall History? Have you had any falls with injury in the past year? ?No . ? Have you had two or more falls in the past year? ?No . ? Fall Risk Assessment: ?No falls in the past year . ? HRA filled out by the patient, reviewed by Provider and scanned. ? AWV ? Balance? Romberg ?negative . ? Tandem walk ?with some difficulty . ? Walk and Turn ?Yes . ? Rise from sit to stand ?Yes . ?Vision? Corrective lens ?none ? Vision screen ? Up-to-date, he sees Dr. Merrill ? Whisper test ?failed ?Written Plan?Completed. See Patient Documents. Healthcare proxy form completed today. ? [facility] Medical History (Updated 04/10/25 @ 00:48 by Argentina Pierre MD) Underweight (BMI < 18.5) Hx of syncope Anemia, iron deficiency Hypokalemia Vaccine refused by patient Refused pneumococcal vaccination COVID-19 vaccination refused Refused influenza vaccine Vitamin D deficiency Hx of gastritis Hearing impairment Normocytic normochromic anemia Benign prostatic hyperplasia with urinary retention Duodenitis Erosive gastritis with hemorrhage Hiatal hernia Productive cough Smokes with greater than 40 pack year history Intermittent lightheadedness Essential hypertension Insomnia disorder, with non-sleep disorder mental comorbidity Surgical History No pertinent past surgical history Family History Father Parkinson's disease Social History Housing: Apartment Alcohol intake: former Patient Tobacco Use Status: Never used Tobacco Tobacco use type: Cigarette Cigarette Packs Per Day: 0 Cigarettes Per Day: 10 e-Cigarette/Vaping Use: Never Used service: No Current occupational status: retired Cognitive needs: No Hearing needs: Yes Vision needs: Yes Questionnaire Medicare Wellness Checkup What is your age?: 80 or older What gender do you identify with?: male During the past 4 weeks, how much have you been bothered by emotional problems such as feeling anxious, depressed, irritable, sad or downhearted, and blue?: not at all During the past 4 weeks, has your physical & emotional health limited your social activities with family, friends, neighbors, or groups?: not at all During the past 4 weeks, how much bodily pain have you generally had?: no pain During the past 4 weeks, was someone available to help you if you needed & wanted help?: no, not at all During the past 4 weeks, what was the hardest physical activity you could do for at least 2 minutes?: very light Can you get to places out of walking distance without help? (For eg., can you travel alone on buses, taxis or drive your car?): Yes Can you go shopping for groceries or clothes without someone's help?: Yes Can you prepare your own meals?: Yes Can you do your housework without help?: Yes Because of any health problems, do you need the help of another person with your personal care needs such as eating, bathing, dressing or getting around the house?: No Can you handle your own money without help?: Yes During the past 4 weeks, how would you rate your health in general?: good During the past 4 weeks how have things been going for you?: very well; could hardly better Are you having difficulties driving your car?: no Do you always fasten your seat belt when you are in a car?: yes, usually During past 4 weeks, have you been bothered by the following: never: Falling or dizzy when standing up, Sexual problems?, Trouble eating well?, Teeth or denture problems?, Problems using the telephone? and Tiredness or fatigue? Have you fallen 2 or more times in the past year?: Yes Are you afraid of falling?: No Are you a smoker?: yes, and I might quit During the past 4 weeks, how many drinks of wine, beer, or other alcoholic beverages did you have?: no alcohol at all Do you exercise for about 20 minutes 3 or more times a week?: no, I usually do not exercise this much Have you been given information to help with the following?: yes: Keeping track of your medications? and no: Hazards in your house that might hurt you? How often do you have trouble taking medicines the way you have been told to take them?: I always take medicine as prescribed How confident are you that you can control & manage most of your health problems?: I do not have any health problems What is your race?: or origin or descent Mini Mental State Exam (MMSE) Orientation What is the (year) (season) (date) (day) (month)?: year (2024), season (Summer), date (04/05/2025), day (Thursday) and month (March) Where are we (state) (county) (town or city) (hospital) (floor)?: state ([place]), county (Unable to name), town or city ([place]) and hospital/clinic (Unable to name) Score Score: 9 Activity of Daily Living Bathing - sponge bath, tub bath or shower: receives no assistance (gets in/out by self, if usual bathing means Dressing - getting clothes from closets & drawers, including inner/outer garments & fasteners.: gets clothes & gets completely dressed without help Toileting - going to the 'toilet room' for urine/bowel elimination & cleaning self/arranging clothes: goes to toilet room, cleans self, arranges clothes without help Transfer: moves in & out of bed and chair without help (may use support object) Continence: controls urination/bowel movements completely by self Feeding: feeds self without help Total Score: 0 Information obtained from: patient Using telephone: independent Traveling: independent Shopping: independent Preparing meals: independent Housework: independent Taking medicine: independent Managing money: independent PHQ-9 Over the last 2 weeks, how often have you been bothered by any of the following problems? 1. Little interest or pleasure in doing things: several days 2. Feeling down, depressed, or hopeless: not at all 3. Trouble falling or staying asleep, or sleeping too much: not at all 4. Feeling tired or having little energy: not at all 5. Poor appetite or overeating: not at all 6. Feeling bad about yourself - or that you are a failure or have let yourself or your family down: several days 7. Trouble concentrating on things, such as reading the newspaper or watching television: several days 8. Moving or speaking so slowly that other people could have noticed. Or the opposite - being so fidgety or restless that you have been moving around a lot more than usual: not at all 9. Thoughts that you would be better off or of hurting yourself in some way: not at all Total score: 3 Depression Screening Interpretation: Negative Depression Screening Done: Yes 44934 - PHQ-9 Billing: Yes Source: Developed by Drs. Jose Jacques, Taisha Pritchard, Enrique Snow and colleagues, with an educational odalis from [employer]. Physical Exam Vital Signs: Last Vital Signs Temp 97.9 F 04/05/25 13:03 Pulse 81 04/05/25 13:03 BP 130/66 04/05/25 13:03 Pulse Ox 94 04/05/25 13:03 Oxygen Delivery Method Room Air 04/05/25 13:03 BMI result Body Mass Index 16.7 Assessment & Plan Assessment & Plan (1) Encounter for initial annual wellness visit (AWV) in Medicare patient: Code(s): Z00.00 - Encounter for general adult medical examination without abnormal findings Plan: Medical wellness checklist reviewed, discussed with patient and updated. Patient has declined all vaccinations offered. (2) Essential hypertension: Code(s): I10 - Essential (primary) hypertension Plan: Blood pressure at goal of less than 130/80. Continue with current medication. Reinforced importance of following a low sodium diet, getting regular exercise, and lowering stress levels. (3) Vitamin D deficiency: Code(s): E55.9 - Vitamin D deficiency, unspecified Plan: Ordered vitamin-D level (4) Hearing impairment: Code(s): H91.90 - Unspecified hearing loss, unspecified ear Qualifiers: Hearing loss type: unspecified Laterality: unspecified laterality Qualified Code(s): H91.90 - Unspecified hearing loss, unspecified ear Plan: Currently being followed by an research software engineer (5) BPH with elevated PSA: Code(s): N40.0 - Benign prostatic hyperplasia without lower urinary tract symptoms; R97.20 - Elevated prostate specific antigen [PSA] Plan: Followed by Urology (6) Anemia, iron deficiency: Code(s): D50.9 - Iron deficiency anemia, unspecified Plan: Mild anemia present on last labs done in November 2024. Ordered another CBC (7) Vaccine refused by patient: Code(s): Z28.20 - Immunization not carried out because of patient decision for unspecified reason Plan: Patient does not want to get any vaccination (8) COPD (chronic obstructive pulmonary disease): Code(s): J44.9 - Chronic obstructive pulmonary disease, unspecified Plan: Currently followed at [facility]. In the meantime continue with Combivent Respimat (9) Underweight (BMI < 18.5): Code(s): R63.6 - Underweight; Z68.1 - Body mass index [BMI] 19.9 or less, adult Plan: Labs ordered. Encouraged patient to eat at least 2 meals a day. Will refer to dough cutting machine operator for further evaluation and management Orders: Orders Complete Blood Count Auto Diff 04/06/25 D50.9 - Iron deficiency anemia, unspecified, E55.9 - Vitamin D deficiency, unspecified, H91.90 - Unspecified hearing loss, unspecified ear, I10 - Essential (primary) hypertension, J44.9 - Chronic obstructive pulmonary disease, unspecified, N40.0 - Benign prostatic hyperplasia without lower urinary tract symptoms, R97.20 - Elevated prostate specific antigen [PSA], Z28.20 - Immunization not carried out because of patient decision for unspecified reason Basic Metabolic Panel Fasting 04/06/25 D50.9 - Iron deficiency anemia, unspecified, E55.9 - Vitamin D deficiency, unspecified, H91.90 - Unspecified hearing loss, unspecified ear, I10 - Essential (primary) hypertension, J44.9 - Chronic obstructive pulmonary disease, unspecified, N40.0 - Benign prostatic hyperplasia without lower urinary tract symptoms, R97.20 - Elevated prostate specific antigen [PSA], Z28.20 - Immunization not carried out because of patient decision for unspecified reason IRON PROFILE 04/06/25 D50.9 - Iron deficiency anemia, unspecified, E55.9 - Vitamin D deficiency, unspecified, H91.90 - Unspecified hearing loss, unspecified ear, I10 - Essential (primary) hypertension, J44.9 - Chronic obstructive pulmonary disease, unspecified, N40.0 - Benign prostatic hyperplasia without lower urinary tract symptoms, R97.20 - Elevated prostate specific antig en [PSA], Z28.20 - Immunization not carried out because of patient decision for unspecified reason Medications: Refilled Combivent Respimat 20-100 mcg/actuation (ipratropium-albuterol) 1 puff inhalation Q6H 4 grams 4RF NS F17.210 - Nicotine dependence, cigarettes, uncomplicated, R05 - Cough Quality Reporting (2019) Depression/Bipolar (159/160/161/177) PHQ-9: Total score: 3 Coding Level of Care Code Medicare First (G0438) Diagnoses Encounter for initial annual wellness visit (AWV) in Medicare patient Z00.00 Essential hypertension I10 Vitamin D deficiency E55.9 Hearing loss, unspecified hearing loss type, unspecified laterality H91.90 Hearing loss type: unspecified Laterality: unspecified laterality BPH with elevated PSA N40.0; R97.20 Anemia, iron deficiency D50.9 Vaccine refused by patient Z28.20 COPD (chronic obstructive pulmonary disease) J44.9 Underweight (BMI < 18.5) R63.6; Z68.1 Additional Codes PHQ-9 - 13596 - PHQ-9 Billing: Yes ([id number])
--- OUTSIDE RECORDS SUMMARY | 2025-04-05 12:57 | XMS_ITS | Clinical Summary ---
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
[2025-04-05 13:03] VITALS: BP 130/66; PULSE 81; TEMP 36.6; O2SAT 94; BMI 16.7
== END 2025-04-05 14:33 | disposition home or self-care (01) ==
LOC: HO.HMCC 12:33
PROVIDERS: PCP Internal Medicine; Visit Provider Internal Medicine
DX: Z00.00 Encounter for general adult medical examination without abnormal findings (principal); J44.9 Chronic obstructive pulmonary disease, unspecified; I10 Essential (primary) hypertension; E55.9 Vitamin D deficiency, unspecified; N40.0 Benign prostatic hyperplasia without lower urinary tract symptoms; R97.20 Elevated prostate specific antigen [PSA]; D50.9 Iron deficiency anemia, unspecified; Z28.20 Immunization not carried out because of patient decision for unspecified reason; R63.6 Underweight; Z68.1 Body mass index [BMI] 19.9 or less, adult

== ENCOUNTER → 2025-04-05 12:33 | Outpatient (BNVA) | payer MEDICARE, MEDICAID, SELFPAY | LOC: CF 13:44 | PROVIDERS: PCP Internal Medicine; Visit Provider Internal Medicine | DX: Z00.00 Encounter for general adult medical examination without abnormal findings (principal); I10 Essential (primary) hypertension; E55.9 Vitamin D deficiency, unspecified; H91.90 Unspecified hearing loss, unspecified ear; N40.0 Benign prostatic hyperplasia without lower urinary tract symptoms; R97.20 Elevated prostate specific antigen [PSA]; D50.9 Iron deficiency anemia, unspecified; J44.9 Chronic obstructive pulmonary disease, unspecified; R63.6 Underweight; Z68.1 Body mass index [BMI] 19.9 or less, adult; Z28.20 Immunization not carried out because of patient decision for unspecified reason | CPT/HCPCS: 96127 ==

== ENCOUNTER 2025-04-06 07:57 | Outpatient (REF) | payer MEDICARE, MEDICAID, SELFPAY ==
--- OUTSIDE RECORDS SUMMARY | 2025-04-06 07:59 | XMS_ITS | Clinical Summary ---
Author Organization [employer] Address [address] [facility] [address] [place] [address] Care Team Providers Care Automatic Maintainer Name Role Phone Unavailable Primary Care Provider [...]
[2025-04-06 10:09] LABS: MANUAL DIFF FLAG NO
[2025-04-06 10:25] LABS: Hematocrit 33.9 % (42.0-52.0); Hemoglobin 11.5 g/dl (14.0-18.0); Imm Gran Abs Auto 0.06 X10*3/uL (0.00-0.03); Imm Gran Pct Auto 0.8 % (0.0-0.4); Lymphocytes Absolute Auto 2.4 X10*3/uL (1.2-4.9); Mean Corpuscular HGB Conc 33.9 g/dl (31.0-36.0); Mean Corpuscular Hemoglobin 31.1 pg (27.0-33.0); Mean Corpuscular Volume 91.6 fL (80.0-98.0); NRBC Abs Auto 0.000 X10*3/uL (0.0-0.012); NRBC Pct Auto 0.0 /100WBC (0.0-0.2); Platelet Count 230 X10*3/uL (160-400); Red Blood Count 3.70 X10*6/uL (4.60-5.80); White Blood Count 7.2 X10*3/uL (4.8-10.8)
[2025-04-06 10:40] LABS: Anion Gap 8 (12-20); Blood Urea Nitrogen 29 mg/dL (9-16); Calcium 9.3 mg/dL (8.4-10.2); Carbon Dioxide 27 mmol/L (22-29); Chloride 104 mmol/L (96-108); Estimated Glomerular Filt Rate > 60; Iron 79 mcg/dL (45-160); Percent Iron Saturation 28 % (15-50); Potassium 4.4 mmol/L (3.3-5.1); Sodium 135 mmol/L (135-145); Total Iron Binding Capacity 282 mcg/dL (228-428); Unsaturated Iron Binding 203 ug/dL
== END 2025-04-06 07:58 | disposition home or self-care (01) ==
LOC: HO.HMGCLDS 07:57
PROVIDERS: PCP Internal Medicine; Visit Provider Internal Medicine
DX: I10 Essential (primary) hypertension (principal); E55.9 Vitamin D deficiency, unspecified; H91.90 Unspecified hearing loss, unspecified ear; N40.0 Benign prostatic hyperplasia without lower urinary tract symptoms; R97.20 Elevated prostate specific antigen [PSA]; D50.9 Iron deficiency anemia, unspecified; Z28.20 Immunization not carried out because of patient decision for unspecified reason; J44.9 Chronic obstructive pulmonary disease, unspecified
CPT/HCPCS: 36415; 80048; 83540; 85025

== ENCOUNTER 2025-04-26 14:14 | Outpatient (AMB) | payer MEDICARE, MEDICAID, SELFPAY ==
--- OUTSIDE RECORDS SUMMARY | 2025-04-26 14:31 | XMS_ITS | Clinical Summary ---
Author Organization [employer] Address [address] [facility] [address] [place] [address] Care Team Providers Care Topography Technician Name Role Phone Unavailable Primary Care Provider [...]
--- NOTE | 2025-04-27 07:21 | MHC.AMNUTRGE ---
Intake Visit Reasons: Initial Nutrition Visit Allergies No Known Allergies Allergy (Verified 04/10/25 00:28) Nutrition Presentation Details: Met with patient and CHW Leelee who assisted with language barrier PRN. Pt knows some Romanian. Currently lives alone, lost his 5 years ago. Does not really cook for himself during the week. 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 Lost weight in December unintentionally due to a 5-day hospital stay. Reports having weighted a consistent 106# in November. Pending eye sx in May. Takes cod liver oil. Was educated on HIP and provided with a [employer] voucher. Is [place]. Eats out most of the time. Agrees to go to the [employer] next week to stock up on fruits and vegetables and use his HIP dollars. Iron list, protein list and snack guide reviewed with good understanding. Agreed to one more visit to check in and see if progress is being made. Reason for consult: low BMI Unstable SDH: Reports use of SNAP Food allergies/aversions: No Physical activity assessment: Reviewed Diet Assmnt Dietary counseling: Mediterranean Who buys your food: self Who prepares/cooks your food: self Lifestyle Eating out: 4 or more times/week Family support: Yes Exercise: Yes BS Monitoring Most Recent Diabetes Results: Creatinine, (0.5-1.4) 1.02 mg/dL 04/06/25 BUN, (9-16) 29 mg/dL H 04/06/25 Sodium, (135-145) 135 mmol/L 04/06/25 Potassium, (3.3-5.1) 4.4 mmol/L Δ 04/06/25 Chloride, (96-108) 104 mmol/L 04/06/25 Carbon Dioxide, (22-29) 27 mmol/L 04/06/25 Calcium, (8.4-10.2) 9.3 mg/dL Δ 04/06/25 AST, (5-37) 19 U/L 12/01/24 ALT, (0-40) 10 U/L 12/01/24 Total Protein, (6.5-8.0) 6.0 g/dL L 12/01/24 Albumin, (3.5-5.0) 2.6 g/dL L 12/01/24 Assessment Nutrition recommendation: RD nutrition education Focused findings Nutrition-focused findings: muscle wasting (Pt does appear thin and frail) Diagnosis Nutrition problem #1: increased nutrient needs, food nutri know defi, undesirable food choices, unintended weight loss and inadequate protein energy As related to (etiology) #1: lack of nutrit education, inadequate oral intake and increased PRO needs As evidenced by (sign/symptom) #1: est intake less than need, food recall, knowledge deficit of diet and weight loss Monitoring/Goals Nutrition problem monitoring: total energy intake, level of knowledge/skill, total PRO intake and oral fluids Nutrition goal/outcome: list 3 high fiber foods Outcome progress: verbalized understanding Learning/Education Readiness to learn: good Stages of change: action Educational materials provided: Yes (Iron list, protein list and snack guide reviewed with good understanding.) Date of nutrition screenin04/26/25 Date of nutritional follow-up: 06/13/25 Follow up Follow-up frequency: monthly Time Outcome assessment time: 60 minutes [facility] Medical History (Updated 04/10/25 @ 00:48 by Argentina Pierre MD) Underweight (BMI < 18.5) Hx of syncope Anemia, iron deficiency Hypokalemia Vaccine refused by patient Refused pneumococcal vaccination COVID-19 vaccination refused Refused influenza vaccine Vitamin D deficiency Hx of gastritis Hearing impairment Normocytic normochromic anemia Benign prostatic hyperplasia with urinary retention Duodenitis Erosive gastritis with hemorrhage Hiatal hernia Productive cough Smokes with greater than 40 pack year history Intermittent lightheadedness Essential hypertension Insomnia disorder, with non-sleep disorder mental comorbidity Surgical History No pertinent past surgical history Family History Father Parkinson's disease Social History Housing: Apartment Alcohol intake: former Patient Tobacco Use Status: Never used Tobacco Tobacco use type: Cigarette Cigarette Packs Per Day: 0 Cigarettes Per Day: 10 e-Cigarette/Vaping Use: Never Used service: No Current occupational status: retired Cognitive needs: No Hearing needs: Yes Vision needs: Yes Assessment & Plan Assessment & Plan (1) Underweight (BMI < 18.5): Code(s): R63.6 - Underweight; Z68.1 - Body mass index [BMI] 19.9 or less, adult Category: Medical Plan 1. increase frequency of small meals 2. work protein into all meals and snacks according to the guide. 3. start using HIP 4. increase food sources of iron. Patient Instructions: 1. increase frequency of small meals 2. work protein into all meals and snacks according to the guide. 3. start using HIP 4. increase food sources of iron. Coding Level of Care Code Nutr Indiv Intake (34425) Diagnoses Underweight (BMI < 18.5) R63.6; Z68.1
== END 2025-04-26 15:14 | disposition home or self-care (01) ==
LOC: HO.HMCCN 14:14
PROVIDERS: PCP Internal Medicine; Visit Provider Dietitian, Registered
DX: R63.6 Underweight (principal); Z68.1 Body mass index [BMI] 19.9 or less, adult

== ENCOUNTER → 2025-04-26 14:14 | Outpatient (BNVA) | payer MEDICARE, MEDICAID, SELFPAY | PROVIDERS: PCP Internal Medicine; Visit Provider Dietitian, Registered | DX: R63.6 Underweight (principal); Z68.1 Body mass index [BMI] 19.9 or less, adult; Z71.3 Dietary counseling and surveillance | CPT/HCPCS: 97802 ==

== ENCOUNTER 2025-08-25 10:19 | Outpatient (REF) | payer MEDICARE, MEDICAID, SELFPAY ==
[2025-08-25 12:54] LABS: PSA,Total (Free>4and<10) 14.48 ng/mL (0.00-4.00)
== END 2025-08-25 10:20 | disposition home or self-care (01) ==
LOC: HO.LAB 10:19
PROVIDERS: PCP Internal Medicine; Visit Provider Urology
DX: N40.0 Benign prostatic hyperplasia without lower urinary tract symptoms (principal); R97.20 Elevated prostate specific antigen [PSA]; Z12.5 Encounter for screening for malignant neoplasm of prostate; R80.9 Proteinuria, unspecified; Z79.899 Other long term (current) drug therapy
CPT/HCPCS: 36415; 51798; 81003; 84153; 99212

== ENCOUNTER 2025-08-25 10:19 | Outpatient (AMB) | payer MEDICARE, MEDICAID, SELFPAY ==
--- NOTE | 2025-08-25 10:29 | A.OFFVIS_ITS ---
Intake Visit Reasons: 9 month follow up/PVR (set(UA) Intake Note: Patient presents today for a 9m follow up with PVR Urology Meds: Finasteride Allergies to Antibiotic:none Blood Thinner:none PVR:194ml Inbound Call Center Representative Required: Yes Inbound Call Center Representative Name: [id number] Information Interpreted: non-clinical & clinical Accompanied by: Self / Same As Patient Allergies No Known Allergies Allergy (Verified 08/25/25 10:30) Medication List - Last Reconciled 08/25/25 by Diana Nelson MD amlodipine 5 mg See Protocol PO DAILY Combivent Respimat 20-100 mcg/actuation (ipratropium-albuterol) 1 puff inhalation Q6H NS finasteride 5 mg PO DAILY HPI Comments Details: 08/25/25--History of Present Illness The patient is an 85 year old male presenting for follow-up for benign prostatic hyperplasia (BPH) management. He underwent a transurethral resection of the prostate (TURP) on September 29, 2023, for urinary retention. Pathology from the procedure showed nodular prostatic stroma and epithelial hyperplasia with mild chronic inflammation. His last prostate-specific antigen (PSA) level on October 14, 2023, was 15.84. He remains on finasteride for BPH. He was previously seen on November 24, 2024, and was referred to nephrology for proteinuria. He reports current urination is perfect with no problems. Results - Urinalysis (today): Negative for leukocytes and blood, positive for protein. - PSA (10/14/2023): 15.84. - Bladder Scan PVR (today): 194 mL. - Pathology (from TURP 09/29/2023): Nodular prostatic stroma and epithelial hyperplasia with mild chronic inflammation. 11/24/24-- 84-year-old male presenting with follow-up for BPH management. He had a transurethral resection of the prostate on September 29, 2023, after which tamsulosin was discontinued, and he continued on finasteride. His condition has remained stable with this regimen. Today's visit noted the emergence of proteinuria, which is new for the patient, further evaluation by nephrology to explore potential kidney concerns. Urinary Symptoms Review - No current urinary symptoms reported. - Continues on finasteride for BPH management. - Previous treatment with tamsulosin was discontinued without issues. Results - Labs: Urinalysis notable for protein. Blood negative. 05/19/24--s/p TURP on 09/29/23 for urinary retention. Florentin states he is doing well. Will cont proscar 5 mg daily. DC tamsulosin. Reviewed and discussed renal US 02/16/24- within normal limits. 10/19/2023--Florentin is an 83-year-old male who has been followed by Dr. Ulloa for BPH. The patient was evaluated by me in the emergency room on 09/09/23 due to gross hematuria and urinary retention. At that time a Castrejon catheter was not able to be inserted and flexible cystoscopy noted traumatic changes of the bulbous urethra. A percutaneous suprapubic tube was placed at that time. The patient is status post cystoscopy limited TURP, Castrejon insertion and removal of percutaneous SP tube on 09/29/23. The patient was seen by nursing for voiding trial on 10/05/2023. The patient states he has been voiding well he denies any repeat episodes of dysuria or gross hematuria. Bladder scan PVR today is 98 mL, UA leuk 2+, blood 1+ On examination -abdomen-a gauze dressing was still taped to lower abdomen and was removed cystotomy site well healed. Plan: Monitor PVR. Surveillance urine culture. Follow-up in 4 months, renal ultrasound prior [facility] Medical History Underweight (BMI < 18.5) Hx of syncope Anemia, iron deficiency Hypokalemia Vaccine refused by patient Refused pneumococcal vaccination COVID-19 vaccination refused Refused influenza vaccine Vitamin D deficiency Hx of gastritis Hearing impairment Normocytic normochromic anemia Benign prostatic hyperplasia with urinary retention Duodenitis Erosive gastritis with hemorrhage Hiatal hernia Productive cough Smokes with greater than 40 pack year history Intermittent lightheadedness Essential hypertension Insomnia disorder, with non-sleep disorder mental comorbidity Surgical History No pertinent past surgical history Family History Father Parkinson's disease Social History Housing: Apartment Alcohol intake: former Patient Tobacco Use Status: Never used Tobacco Tobacco use type: Cigarette Cigarette Packs Per Day: 0 Cigarettes Per Day: 10 e-Cigarette/Vaping Use: Never Used service: No Current occupational status: retired Cognitive needs: No Hearing needs: Yes Vision needs: Yes Review of Systems Const All systems reviewed & are unremarkable except as noted in HPI and below Reports no additional complaints Eyes Reports no additional complaints ENT Reports no additional complaints Card Reports no additional complaints Resp Reports no additional complaints GI Reports no additional complaints Reports as per HPI Musc Reports no additional complaints Skin/Breast Reports system reviewed and no additional complaints, except as documented Neuro Reports no additional complaints Psych Reports no additional complaints Endo Reports no additional complaints Arturo/Lymph Reports no additional complaints Aller/Immun Reports no additional complaints Results Reviewed Results Reviewed: Date of Service: 02/16/24 US RETROPERITONEAL LIMITED (RENAL ONLY) CLINICAL INFORMATION: Retention of urine, unspecified. COMPARISON: CT abdomen and pelvis 02/23/2011. Abdominal ultrasound 07/05/2007. TECHNIQUE: Real-time imaging of the kidneys. FINDINGS: RIGHT KIDNEY: 9.9 x 3.7 x 5.3 cm (SAG x AP x TRV). The kidney is normal in size, contour, and echogenicity. Renal cortical thickness is normal. No calculi or focal parenchymal lesions. No hydronephrosis. LEFT KIDNEY: 9.8 x 5.1 x 5.6 cm (SAG x AP x TRV). The kidney is normal in size, contour, and echogenicity. Renal cortical thickness is normal. No renal calculi or hydronephrosis. 0.9 x 0.7 x 0.9 cm simple exophytic cyst is seen in the lateral mid kidney, no imaging follow-up is recommended. IMPRESSION: 1. Normal appearance of the right kidney. 2. 0.9 cm simple exophytic cyst in the lateral mid left kidney, no imaging follow-up is recommended. 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 Assessment & Plan Assessment & Plan (1) BPH with elevated PSA: Code(s): N40.0 - Benign prostatic hyperplasia without lower urinary tract symptoms; R97.20 - Elevated prostate specific antigen [PSA] Category: Medical (2) Proteinuria: Comment: referred to Nephrology Code(s): R80.9 - Proteinuria, unspecified Category: Medical Plan Plan 1. Benign Prostatic Hyperplasia (Bph) - Continue finasteride; a refill will be sent to the pharmacy. - The PVR will be monitored. - A follow-up visit is scheduled in 6 months. 2. Elevated Prostate-Specific Antigen (Psa) - The patient will have a PSA level drawn today. 3. Proteinuria - Urinalysis today was positive for protein. - The patient was previously referred to nephrology for this issue. - The patient will undergo blood work today. Medications: New finasteride 5 mg PO DAILY 90 tabs 3RF Patient Instructions: The patient had an opportunity to ask questions regarding treatment plan. The patient expressed understanding and agreement with the above treatment plan. The patient is aware they should contact our office by phone for worsening of their current condition or the appearance of new symptoms. Compliance is encoura ged with any medications and followup testing that is ordered. It is a privilege to be allowed the opportunity to participate in the urologic care of your patient. If you have any questions or concerns regarding treatment for the above conditions please do not hesitate to contact me. The office telephone contact is [phone]. This note is constructed in part using voice recognition software. While every effort has been made to ensure accuracy dater assembler errors may have been included. Yours sincerely, Diana Nelson MD Scribe Plan - Not visible on output: Patient was informed and verbally consented to the use of an ambient scribe for clinic note documentation during this visit. Coding Level of Care Code Est Pt Level 4 (65340) Diagnoses BPH with elevated PSA N40.0; R97.20 Proteinuria R80.9
== END 2025-08-25 11:17 | disposition home or self-care (01) ==
LOC: HO.HUSH 10:20
PROVIDERS: PCP Internal Medicine; Visit Provider Urology
DX: N40.0 Benign prostatic hyperplasia without lower urinary tract symptoms (principal); R97.20 Elevated prostate specific antigen [PSA]; R80.9 Proteinuria, unspecified; N40.1 Benign prostatic hyperplasia with lower urinary tract symptoms; R33.8 Other retention of urine
CPT/HCPCS: 99214